=== PATIENT | male | born 1980 | race Caucasian/White ===

== ENCOUNTER 2019-09-10 15:55 | Emergency (ER) | payer OTHER, SELFPAY ==
--- NOTE | ~2019-09-10 | XR_ITS ---
EXAMINATION: XR chest 2V DATE: 09/10/2019 17:12 INDICATION: Decreased breath sounds TECHNIQUE: Frontal and lateral views of the chest are obtained COMPARISON: 07/13/2006 FINDINGS: The lungs are free of acute opacities. There is no pleural effusion or pneumothorax. The ca rdiomediastinal silhouette is normal. There is mild thoracic spondylosis. IMPRESSION: 1. No acute cardiopulmonary abnormality. Reviewed, dictated and finalized at location A.
[2019-09-10 16:05] VITALS: BP 141/85; PULSE 117; RESP 16; TEMP 37.3; O2SAT 98
[2019-09-10 16:47] LABS: Glucose Point of Care 125 (65-105)
--- NOTE | 2019-09-10 16:52 | ED.GENADULT ---
HPI - General Adult General Chief complaint: Unspecified Stated complaint: Swelling r/l ankle/leg Time Seen by Provider: 09/10/19 16:52 Source: RN notes reviewed Mode of arrival: ambulatory Limitations: no limitations History of Present Illness HPI narrative: 38 year old male who presents to [facility] with complaints of one week duration of bilateral ankle and feet edema. 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 Patient states that he had previous episode of lower leg swelling in April and was seen in the emergency room at [facility]. Patient has small scabbed areas to left lower extremity and scabbed inflamed area to right anterior ankle region 0.5cm diameter with no drainage noted, states this area does not seem to heal. Patient states history of tobacco abuse of 1 ppd for the past 20 years, states also prior history of alcohol and cocaine abuse which he states no longer use.Patient denies any chest pain or palpitation, no episodes of diaphoresis or acute dyspnea. MD complaint: swelling to lower extremities Onset (ago): week(s) (1) Location: lower extremity (bilateral pretibial and pedal edema) Radiation: non-radiation Severity: moderate Severity scale (1-10): 8 Quality: aching Pain Consistency: intermittent Relieving factors: none Exacerbating factors: other (ambulation) Associated symptoms: other (scabbed lesions to lower extremities, ) Treatments prior to arrival: other (elevation of legs) Related Data Allergies Allergy/AdvReac Type Severity Reaction Status Date / Time No Known Allergies Allergy Mild Verified 09/10/19 16:03 Review of Systems Review of Systems: Narrative: CONSTITUTIONAL: Denies fever, chills, or sweats. EYES: Denies visual changes, redness, or discharge. ENT: Denies rhinorrhea, congestion, sore throat, or otalgia. CARDIOVASCULAR: Denies chest pain, palpitations, positive for lower extremity edema for the past 1 week duration RESPIRATORY: Denies cough or dyspnea.SAO2 99% on room air GASTROINTESTINAL: Denies abdominal pain, nausea, vomiting, or diarrhea. GENITOURINARY: Denies dysuria or hematuria. SKIN: Denies rash or itching.red scabbed lesion to right anterior ankle region with no drainage, scattered scabbed areas left lower leg. MUSCULOSKELETAL: Denies back pain, joint pain, or myalgia. NEUROLOGIC: Denies headache, numbness, or weakness. PSYCHIATRIC: Positive history of anxiety and depression. All systems reviewed & are unremarkable except as noted in HPI and below PMFSH Past Medical History Medical History (Updated 09/11/19 @ 00:00 by Mag Addison) Anxiety Depression History of kidney stones Surgical History Surgical History (Updated 09/11/19 @ 19:59 by Osiris Garcia NP) History of arthroplasty of left ankle Family History Family History (Updated 09/11/19 @ 19:59 by Osiris Garcia NP) Other Diabetes mellitus Social History Social History Smoking packs per day: 1 Smoking cigarettes per day: 20.0 Smoking status: Current every day smoker Alcohol intake: current Gender identity (if verbalized by the patient): Male Comments At time of signature, agree with nursing past medical, surgical, social and family history. There is no relevant family history pertinent to the presenting complaint Exam Narrative: Exam Narrative: GENERAL: Well-appearing, well-nourished, and in no acute distress. HEAD: Normocephalic, atraumatic. EYES: PERRLA and EOMI. ENT: Nares clear, no rhinorrhea or epistaxis. Mucous membranes moist. NECK: Supple. CHEST: Clear decreased breath sounds to auscultation. No respiratory distress.SAO2 98% on room air HEART: Regular rate and rhythm. No murmur heard, peripheral pulses of fair quality but palpable ABDOMEN: Soft, nontender, nondistended, normal active bowel sounds. EXTREMITIES: Normal r
[2019-09-10 17:07] VITALS: PULSE 103; RESP 18; O2SAT 98
== END 2019-09-10 18:00 | disposition home or self-care (01) ==
PROVIDERS: Emergency Provider Registered Nurse
DX: L03.119 Cellulitis of unspecified part of limb (principal); L02.419 Cutaneous abscess of limb, unspecified; R60.0 Localized edema; F17.210 Nicotine dependence, cigarettes, uncomplicated
CPT/HCPCS: 71046; 82948; 99213; G0463

== ENCOUNTER 2020-02-27 09:55 | Outpatient (CLI) | payer OTHER, SELFPAY ==
--- NOTE | ~2020-02-27 | MR_ITS ---
EXAMINATION: MR forearm LT wo con DATE: 02/27/2020 11:05 INDICATION: 3 lumps at the left forearm with pain and drainage. TECHNIQUE: Magnetic resonance imaging (MRI) of the left forearm was performed without intravenous con trast. Sequences included axial, sagittal and coronal T1-weighted FSE and fluid sensitive FSE STIR . COMPARISON: None. FINDINGS: There is skin thickening and subcutaneous edema extending to 33 lag the dorsal aspect of the left for earm. The region of inflammatory stranding appears to track along the course of the subcutaneous vein . Approximately 8 cm distal to the level of the radiocapitellar joint line there is a nonspecific 1.8 x 0.8 x 1.2 cm nodular subcutaneous lesion which is T1 isointense and slightly hyperintense on fluid sensitive image to the underlying skeletal muscle. There appears to be a defect in the dermal layer at the superficial margin of the lesion which may represent the site of reported drainage. No other c learly defined nodules identified. The underlying musculature is unremarkable with normal signal. No evident low signal intensity soft tissue gas or foreign body. Bone alignment is normal. Normal marrow signal throughout with no fracture or pathologic marrow replacing process. No elbow joint effusion. IMPRESSION: 1. Skin thickening and subcutaneous edema suggestive of cellulitis extending along the dorsal aspect of the forearm which appears centered around the subcutaneous vein suggesting possible thrombophlebit is as etiology. 2. More focal 1.8 x 0.8 x 1.2 cm nodular lesion which appears to extend to the skin surface. Although neoplasm cannot be absolutely excluded the surrounding edema and skin thickening suggests an inflamm atory etiology differential would include granuloma/phlegmon, draining abscess or hematoma. Reviewed, dictated and finalized at location A. IMPRESSION: 1. Skin thickening and subcutaneous edema suggestive of cellulitis extending al sania the dorsal aspect of the forearm which appears centered around the subcutan eous vein suggesting possible thrombophlebitis as etiology. 2. More focal 1.8 x 0.8 x 1.2 cm nodular lesion which appears to extend to the skin surface. Although neoplasm cannot be absolutely excluded the surrounding e anika and skin thickening suggests an inflammatory etiology differential would i nclude granuloma/phlegmon, draining abscess or hematoma.
== END 2020-02-27 09:56 | disposition home or self-care (01) ==
PROVIDERS: PCP Physician Assistant; Visit Provider Physician Assistant
DX: R22.9 Localized swelling, mass and lump, unspecified (principal)
CPT/HCPCS: 73218

== ENCOUNTER 2020-03-01 10:47 | Inpatient (IN) | payer OTHER, SELFPAY ==
[2020-03-01] VITALS (8 sets, daily range): BP systolic 117–143; BP diastolic 52–77; PULSE 111–126; RESP 18–28; TEMP 36.4–37.7; O2SAT 96–100
--- NOTE | ~2020-03-01 | US_ITS ---
EXAMINATION: US venous doppler UE DATE: 03/02/2020 14:13 INDICATION: Left upper limb swelling. TECHNIQUE: Grayscale ultrasound images without and with compression and Doppler ultrasound images of the bilateral upper extremity veins were obtained. COMPARISON: None. FINDINGS: The visualized portions of the right internal jugular vein, subclavian vein, axillary vein, brachial veins, basilic vein, cephalic vein, radial vein, and ulnar vein are patent. The visualized portions of the left internal jugular vein, subclavian vein, axillary vein, brachial v eins, basilic vein, cephalic vein, radial vein, and ulnar vein are patent. IMPRESSION: 1. No deep venous thrombosis. Reviewed, dictated and finalized at location A.
--- NOTE | ~2020-03-01 | CT_ITS ---
EXAMINATION: CT brain wo con DATE: 03/01/2020 18:58 INDICATION: Confusion TECHNIQUE: Computed tomography (CT) of the head was performed without intravenous contrast. The mA wa s adjusted according to patient size. Iterative reconstruction technique was employed. Exam dose: 68 1.00 mGy-cm total exam DLP. COMPARISON: 07/13/2006 CT brain FINDINGS: No intracranial mass lesion or hemorrhage or cerebrovascular accident is detected. Normal v entricular size. Cavum septum pellucidum. Mild bilateral carotid siphon internal carotid artery calcifications. No subdural or epidural hematoma. There is patchy opacification of ethmoid air cells bilaterally. The paranasal sinuses are otherwise u nremarkable. Normal development and aeration of the mastoid air cells. No fracture or bone destruction of the cranial vault. IMPRESSION: No acute intracranial finding Cerebral atherosclerosis Patchy opacification of ethmoid air cells Reviewed, dictated and finalized at Location A. Reviewed, dictated and finalized at location A.
--- NOTE | ~2020-03-01 | XR_ITS ---
EXAMINATION: XR chest 1V portable 03/01/2020 11:39 INDICATION: Fever and dyspnea PROCEDURE: AP portable chest COMPARISON: 09/10/2019 FINDINGS: The lungs are clear. The cardiomediastinal silhouette is within normal limits. There are no pleural effusions. There is no pneumothorax suspected. IMPRESSION: 1: NO ACUTE CARDIOPULMONARY DISEASE. Reviewed, dictated and finalized at location A.
--- NOTE | ~2020-03-01 | US_ITS ---
EXAMINATION: US venous doppler [facility] DATE: 03/02/2020 14:10 INDICATION: Lower limb pain and swelling TECHNIQUE: Garces scale images without and with compression and Doppler images of the bilateral lower e xtremity veins were obtained. COMPARISON: None FINDINGS: The right common femoral vein, profunda femoral vein, femoral vein, popliteal vein, peroneal trunk, p osterior tibial veins, and greater saphenous vein are patent. Lymph nodes in the right groin measure up to 1.3 cm in short axis, likely reactive. The left common femoral vein, profunda femoral vein, femoral vein, popliteal vein, peroneal trunk, po sterior tibial veins, and greater saphenous vein are patent. IMPRESSION: 1. Patent bilateral lower extremity veins. No evidence of deep venous thrombosis. Reviewed, dictated and finalized at location A. IMPRESSION: 1. Patent bilateral lower extremity veins. No evidence of deep venous thrombosi s.
--- NOTE | ~2020-03-01 | US_ITS ---
EXAMINATION: US right upper quadrant DATE: 03/05/2020 12:47 INDICATION: Abnormal liver function tests. TECHNIQUE: Multiple grayscale and Doppler ultrasound images of the abdomen were obtained. COMPARISON: CT abdomen and pelvis 06/08/2017 FINDINGS: The visualized portions of the head and body of the pancreas are normal. There is diffuse h epatic steatosis. No liver surface nodularity. There is normal flow in main portal vein. The gallblad ramya is normal in size. No gallstones or gallbladder wall thickening. There was no sonographic Blake sign. The common duct is normal and measures 5 mm. IMPRESSION: 1. Diffuse hepatic steatosis. Reviewed, dictated and finalized at location A.
--- NOTE | 2020-03-01 11:06 | ECG_ITS ---
Measurements Intervals [place] Rate: 119 P: 46 SD: 139 QRS: 26 QRSD: 90 T: 50 QT: 312 QTc: 440 Interpretive Statements SINUS TACHYCARDIA INCOMPLETE RIGHT BUNDLE BRANCH BLOCK BASELINE ARTIFACT- I, II, III, AVR ABNORMAL ECG Electronically Signed On 03-01-2020 15:57:48 CDT by Pilo Hamilton D.O.
[2020-03-01] MEDS: SODIUM CHLORIDE 0.9% IV 1,000 ML 999 ML IV CONT (11:30)
[2020-03-01 11:43] LABS: Basophils Absolute Auto 0.1 K/mm3 (0.0-0.1); Basophils Percent Auto 0.2 % (0.2-1.2); Hematocrit 41.2 % (42.0-52.0); Hemoglobin 13.7 g/dL (14.0-18.0); Immature Granulocyte Absolute 0.17 K/mm3 (0.00-0.031); Immature Granulocyte Percent A 0.8 % (0-0.5); Lymphocytes Absolute Auto 1.07 K/mm3 (0.9-3.2); Lymphocytes Percent Auto 5.1 % (18.3-44.2); Mean Corpuscular HGB Conc 33.3 g/dl (32-36); Mean Corpuscular Hemoglobin 29.9 pg (26-34); Monocytes Percent Auto 4.7 % (2.6-8.5); Neutrophils Absolute Auto 18.6 K/mm3 (1.3-6.7); Neutrophils Percent Auto 89.2 % (45.5-73.1); Platelet Count Result 248 k/mm3 (150-375); Red Blood Count 4.58 M/mm3 (4.6-6.20); Red Cell Distribution Width 12.6 % (11.5-14.5); White Blood Count 20.9 K/mm3 (4.5-10.0)
[2020-03-01 11:54] LABS: Lactic Acid Reflex 1.2 mmol/L (0.7-2.1)
[2020-03-01 11:55] LABS: Appearance Urine Clear (Clear); Color Urine Amber (Yellow)
[2020-03-01 11:56] LABS: Blood Urine Negative (Negative); Glucose Urine UA Negative (Negative); Ketones Urine 1+ mg/dL (Negative); Protein Urine Trace mg/dL (Negative); pH Urine 7.5 (5.0-9.0)
[2020-03-01 11:57] LABS: Add Urine Microscopic? YES; Alanine Aminotransferase 62 U/L (4-50); Alkaline Phosphatase 80 U/L (38-126); Anion Gap 7 mmol/L (8-16); Aspartate Amino Transferase 42 U/L (17-59); Bilirubin Urine 2+ (Negative); Bilirubin,Total 1.4 mg/dL (0.2-1.3); Blood Urea Nitrogen 10 mg/dL (9-20); CRP 6.2 mg/dL (<1.0); Calcium 8.8 mg/dL (8.4-10.2); Carbon Dioxide 30 mmol/L (22-30); Chloride 99 mmol/L (98-107); Estimated CRCL calculation 123 ml/min; Estimated Glomerular Filt Rate > 60; Glucose 109 mg/dL (75-110); INR 1.1; Leukocyte Esterase Ur Trace LEU/UL (Negative); Lipase 35 U/L (23-300); Nitrate Urine Negative (Negative); Partial Thromboplastin Time 35.1 SECONDS (22.3-36.8); Potassium 3.7 mmol/L (3.4-5.0); Sodium 136 mmol/L (137-145)
[2020-03-01 11:58] LABS: Mucus Urine Moderate /lpf; RBC Urine 0-2 /hpf (0-2); WBC Urine 0-3 /hpf
[2020-03-01 12:06] LABS: Troponin I < 0.012 ng/mL (0.000-0.034)
--- NOTE | 2020-03-01 12:45 | ED.FEVER ---
HPI - Fever General Chief Complaint: Fever Stated Complaint: Fever Time Seen by Provider: 03/01/20 11:10 Source: patient Limitations: no limitations History of Present Illness HPI Narrative: 39-year-old with a history of IV drug abuse presented to the ER with complaints of high fever since yesterday. Patient states that he has not used IV drugs for past 1 month, had an outpatient MRI of the right upper extremity which shows diffuse cellulitis and a small 1.8 cm questionable soft tissue swelling. Patient denies any cough or shortness of breath. No history of nausea or vomiting. Patient claims that he has not used any drugs in the last few days. MD elicited complaint: fever Exacerbating factors: nothing Treatments prior to arrival fever: none Related Data Home Medications Medication Instructions Recorded Confirmed No Home Medications 01/30/20 01/30/20 Allergies Allergy/AdvReac Type Severity Reaction Status Date / Time No Known Allergies Allergy Mild Verified 03/01/20 11:03 Review of Systems Review of Systems: All systems reviewed & are unremarkable except as noted in HPI and below Constitutional: Constitutional: Reports no additional constitutional complaints Eyes: Eyes: Reports no additional eye complaints ENT: Reports system reviewed and no additional complaints, except as documented Respiratory: Respiratory: Reports no additional respiratory complaints Genitourinary: Genitourinary: Reports no additional male genitourinary complaints Integumentary/Breasts: Skin/Breast: Reports system reviewed and no additional complaints, except as docu PMFSH Past Medical History Medical History Allergies Anxiety Anxiety and depression Depression Elevated fasting glucose Excessive cerumen in both ear canals Foot callus History of kidney stones Irritability and anger Lipodermatosclerosis of lower extremity due to varicose veins Mass of skin of left forearm Obesity (BMI 30.0-34.9) Obstructive sleep apnea Prostate cancer screening Seasonal allergies Tobacco abuse Venous stasis syndrome Surgical History Surgical History History of arthroplasty of left ankle Family History Family History Mother No problems noted. Father Diabetes mellitus Grandparent , Paternal Grandfather Lung disease Grandparent , Paternal Grandmother No problems noted. Grandparent , Maternal Grandmother Diabetes mellitus Grandparent , Maternal Grandfather Heart disease Sibling No problems noted. Sibling No problems noted. Social History Social History Smoking packs per day: 1 Smoking cigarettes per day: 20.0 Smoking status: Current every day smoker Alcohol intake: current Gender identity (if verbalized by the patient): Male Exam Narrative: Exam Narrative: GENERAL: Well-appearing, well-nourished, and in no acute distress. HEAD: Normocephalic, atraumatic. EYES: PERRLA and EOMI. ENT: Nares clear, Mucous membranes moist. NECK: Supple. CHEST: Clear to auscultation. No respiratory distress. HEART: Tachycardic. No murmur heard. Normal peripheral pulses. ABDOMEN: Soft, nontender, nondistended, normal active bowel sounds. EXTREMITIES: Normal range of motion. Right upper extremity is mildly edematous compared to the left but I do not see any obvious open lesions SKIN: Warm, dry, no rash. Multiple old scabbed lesions in the lower extremities NEURO: No focal deficits. Alert and oriented x3. PSYCH: Normal mood and affect. Course Reevaluation(s) Reevaluation #1: Patient had to be woken up several times to inform his lab work, will admit him to the hospital for IV antibiotics. I discussed with Lena who agreed to admit the patient. Vital Signs Vital s
--- NOTE | 2020-03-01 14:55 | ADMGEN ---
This patient, Clem Mike, was admitted to [facility] Surg Room 327-01. Patient/family oriented to hospital policies and general routines including ID bracelet, bed and alarms, visiting hours, pain management, procedures, bathroom and other care routines, personal items, smoking policy, room service/diet, and visiting hours. Valuables list has been completed. Information on how to activate the Rapid Response Team has been discussed. Patient/Family are encouraged to report perceived risks to care and to ask questions if they do not understand what they are told or what they should do.
[2020-03-01] MEDS: SODIUM CHLORIDE 0.9% IV 1,000 ML 125 ML IV CONT (15:41)
--- NOTE | 2020-03-01 16:36 | PM.IMHP ---
H&P: HPI History of Present Illness Date/Time: 03/01/20 16:36 Chief complaint: SIRS, cellulitis right arm Narrative: Clem Mike is a 39 year old male Who is a known IV drug user. The patient has not been answering questions for me at this time. He has fevers and chills. The patient has a history of sleep apnea. He tells me that he does use a CPAP at home. He has a history of depression and anxiety. He has tried depression medication in the past but is turn to self medicating himself with street drugs. He would not tell me specifically would is using to shoot up with. But the patient has multiple pop byers from injecting himself. His areas between his toes and his lower extremities and his forearms. The patient came to the emergency with complaints of high fever since yesterday am not quite sure how high the fever has been. The patient states he has not use IV drug use for 1 month. Patient had an outpatient MRI of the right upper extremity which shows diffuse cellulitis and a small 1.8 cm questionable soft tissue swelling. He denies any cough. The patient was checked for covid 19 and is on isolation now. Patient was started on cefepime and vancomycin. His white count was noted to be 20.9. The patient is having difficulty staying awake to answer my questions. He is a poor historian. The nurse has called his mother which is Jocelyn .She stated that he uses heroin and was on Suboxone for two years. no medications listed at his usual pharmacy. Patient was started on cefepime and vancomycin. C reactive protein 6.2. Patient was noted to have Lyme disease in the past but was treated early on without any symptoms. Patient had been placed on Lasix due to the lower extremity edema. Chest x-ray was read as no acute cardiopulmonary disease. Patient was admitted inpatient for medical floor isolation on 03/01/2020 Review of Systems Review of Systems: All systems reviewed & are unremarkable except as noted in HPI and below Constitutional: Constitutional: Reports as per HPI and Reports no additional constitutional complaints Eyes: Eyes: Reports as per HPI and Reports no additional eye complaints ENT: Reports system reviewed and no additional complaints, except as documented and Reports Normal hearing present Cardiovascular: Cardiovascular: Reports no additional cardiovascular complaints Respiratory: Respiratory: Reports no additional respiratory complaints and Reports no additional respiratory complaints Gastrointestinal: Gastrointestinal: Reports as per HPI and Reports no additional gastrointestinal complaints Musculoskeletal: Musculoskeletal: Reports no additional musculoskeletal complaints Integumentary/Breasts: Skin/Breast: Reports system reviewed and no additional complaints, except as docu and Reports as per HPI Neurologic: Reports system reviewed and no additional complaints, except as documented, Reports as per HPI and Reports Normal hearing present Psychiatric: Psychiatric: Reports no additional psychiatric complaints and Reports as per HPI Endocrine: Endocrine: Reports no additional endocrine complaints Hematologic/Lymphatic: Hematologic/Lymphatic: Reports no additional hematologic/lymphatic complaints Allergic/Immunologic: Allergic/Immunologic: Reports no additional allergic/immunologic complaints [facility] Past Medical History Medical History (Updated 03/01/20 @ 17:40 by Lena Stein NP) Allergies Anxiety Anxiety and depression Depression Elevated fasting glucose Excessive cerumen in both ear canals Foot callus History of kidney stones Irritability and anger Lipodermatosclerosis of lower extremity due to varicose veins Lyme disease Mass of skin of left forearm Obesity (BMI 30.0-34.9) Obstructive sleep apnea Prostate cancer screening Seasonal allergies Tobacco abuse Venous stasis syndrome Surgical History Surgical History History of arthroplas
[2020-03-01 17:07] LABS: Alveolar/Arterial O2 Gradient 60.1 mmHg; Base Excess ABG -1.2 mEq/l (+/-2.0); Fractional Inspired Oxygen 21 %; HCO3 ABG 20.7 mEq/l (22.0-26.0); Oxygen Content ABG 17.6 %vol (16.0-22.0); Oxygen Saturation ABG 92.1 % (95.0-100.0); PCO2 ABG 27.7 mmHg (35.0-45.0); PO2 ABG 56.5 mmHg (80.0-100.0); PO2 FiO2 Ratio Arterial Blood 2.69 %; Total Hemoglobin 13.8 g/dL (12.0-18.0); pH ABG 7.492 (7.350-7.450)
[2020-03-01 17:08] LABS: Device ROOM AIR; Modified Allen's Test Pass; Site Drawn RIGHT RADIAL
[2020-03-01 17:38] LABS: Lactic Acid Reflex 0.7 mmol/L (0.7-2.1)
[2020-03-01] MEDS: NICOTINE (*PBKC) 21 MG PATCH 1 PATCH TRANSDERM (19:34)
[2020-03-01] MEDS: ACETAMINOPHEN 325 MG TABLET 650 MG PO (22:10)
[2020-03-01 22:44] LABS: Influenza Control Positive
[2020-03-02] VITALS (11 sets, daily range): BP systolic 104–142; BP diastolic 61–80; PULSE 89–124; RESP 16–20; TEMP 36.4–38.7; O2SAT 97–100
--- NOTE | 2020-03-02 01:29 | P.PNCROSS_ITS ---
Event Note Event Note Event Note: RAPID RESPONSE NOTE Called to bedside via Rapid Response. This is a 39 year old male known IV drug abuser who was admitted to the hospital tonight secondary to sepsis and left arm cellulitis. Nursing staff called a rapid response when the patient was not waking up to verbal stimuli. ON my arrival to bedside the patient immediately woke up to physical stimuli. He was found to have a fever. He did not have IV access at that time. Vitals were obtained and were stable. Nursing supervisor dehydrogenation placed a peripheral IV. The patient answered my questions appropriately. ABG was obtained which was a mixed gas but did show a normal CO2. Lactic acid was drawn. I will continue to monitor the patient closely overnight. Monitor for any signs and symptoms of drug withdrawal. Continue current medical therapy.
[2020-03-02 01:30] LABS: Alveolar/Arterial O2 Gradient 67.5 mmHg; Carboxyhemoglobin 0.5 % THb (0-2.0); Fractional Inspired Oxygen 21 %; HCO3 ABG 22.6 mEq/l (22.0-26.0); Methemoglobin ABG 0.2 %THb (0-1.5); Oxygen Content ABG 15.8 %vol (16.0-22.0); Oxyhemoglobin 81.5 % THb (90.0-100.0); PCO2 ABG 34.4 mmHg (35.0-45.0); PO2 FiO2 Ratio Arterial Blood 1.95 %; Reduced Hemoglobin 17.8 %THb (0-5.0); Total Hemoglobin 13.8 g/dL (12.0-18.0); pH ABG 7.436 (7.350-7.450)
[2020-03-02 01:33] LABS: Device ROOM AIR; Modified Allen's Test Pass; Oxygen Saturation ABG 78.6 % (95.0-100.0); Site Drawn LEFT RADIAL
[2020-03-02] MEDS: IBUPROFEN IV 400 MG in SODIUM CHLORIDE 0.9% IV 100 ML 200 MG IVPB (01:52)
[2020-03-02 02:30] LABS: Basophils Absolute Auto 0.1 K/mm3 (0.0-0.1); Basophils Percent Auto 0.3 % (0.2-1.2); Eosinophils Percent Auto 0.1 % (0-4.4); Hematocrit 41.3 % (42.0-52.0); Immature Granulocyte Absolute 0.11 K/mm3 (0.00-0.031); Immature Granulocyte Percent A 0.6 % (0-0.5); Lymphocytes Absolute Auto 1.03 K/mm3 (0.9-3.2); Lymphocytes Percent Auto 5.7 % (18.3-44.2); Mean Corpuscular HGB Conc 33.9 g/dl (32-36); Mean Corpuscular Hemoglobin 30.1 pg (26-34); Mean Corpuscular Volume 88.8 fl (80-100); Mean Platelet Volume 11.2 fl (7.4-10.4); Monocytes Absolute Auto 1.1 K/mm3 (0.1-0.6); Monocytes Percent Auto 6.2 % (2.6-8.5); Neutrophils Absolute Auto 15.8 K/mm3 (1.3-6.7); Neutrophils Percent Auto 87.1 % (45.5-73.1); Platelet Count Result 183 k/mm3 (150-375); Red Blood Count 4.65 M/mm3 (4.6-6.20); Red Cell Distribution Width 12.7 % (11.5-14.5); White Blood Count 18.2 K/mm3 (4.5-10.0)
[2020-03-02 02:35] LABS: Anion Gap 8 mmol/L (8-16); Blood Urea Nitrogen 9 mg/dL (9-20); Calcium 8.5 mg/dL (8.4-10.2); Carbon Dioxide 23 mmol/L (22-30); Chloride 102 mmol/L (98-107); Estimated CRCL calculation 123 ml/min; Estimated Glomerular Filt Rate > 60; Glucose 113 mg/dL (75-110); Potassium 3.2 mmol/L (3.4-5.0); Sodium 133 mmol/L (137-145)
[2020-03-02 04:04] LABS: Glucose Point of Care 113 (65-105)
[2020-03-02 05:32] LABS: Barbiturate Screen Urine Negative (Negative); Benzodiazepines Screen Urine Negative (Negative)
[2020-03-02 06:06] LABS: Cannabinoid Screen Urine Negative (Negative); Cocaine Screen Urine Negative (Negative); Methadone Screen Urine Negative (Negative); Opiate Screen Urine Negative (Negative); Phencyclidine Screen Urine Negative (Negative)
[2020-03-02 08:00] LABS: Magnesium 1.7 mg/dL (1.6-2.3)
[2020-03-02] MEDS: NICOTINE (*PBKC) 21 MG PATCH 1 PATCH TRANSDERM (08:08)
[2020-03-02] MEDS: POTASSIUM CHLORIDE 20 MEQ TABLET 40 MEQ PO (08:08)
--- NOTE | 2020-03-02 12:26 | PM.CNGS ---
Assessment and Plan Assessment and plan (1) Cellulitis of left arm: Code(s): L03.114 - Cellulitis of left upper limb Status: Acute Assessment and Plan: no drainable areas on exam today, will cont to follow, cont abx (2) SIRS (systemic inflammatory response syndrome): Code(s): R65.10 - Systemic inflammatory response syndrome (SIRS) of non-infectious origin without acute organ dysfunction Status: Acute Assessment and Plan: ? etiology as no obvious abscess on exam, cont abx (3) Drug abuse, IV: Code(s): F19.10 - Other psychoactive substance abuse, uncomplicated Status: Acute Assessment and Plan: pt not ammendable to cessation at this point (4) Suspected COVID-19 virus infection: Code(s): Z20.828 - Contact with and (suspected) exposure to other viral communicable diseases Status: Acute Assessment and Plan: pending, cont precautions (5) Tobacco abuse: Code(s): Z72.0 - Tobacco use Status: Acute Assessment and Plan: pt no ammendable to cessation at this point History of Present Illness Consult details Consult date: 03/02/20 Reason for consult: wound care Requesting physician: Yessenia Quiroga PA-C Narrative: Pt is a 39 y/o M c h/o polysubstance abuse presenting c fevers, malaise over last week. Pt reports pain in LUE assoc c some redness and swelling. Pt had outpt MRI showing some soft tissue changes in L forearm area. Pt reports swelling and pain improved since admission and IV abx. Review of Systems Constitutional: Constitutional: Denies anorexia, Reports body ache(s), Reports chills, Reports fatigue, Reports fever(s), Denies headache(s), Denies increased appetite, Reports lethargy, Reports malaise, Reports poor appetite and Reports weakness Eyes: Eyes: Reports no additional eye complaints and Denies change in vision ENT: Reports system reviewed and no additional complaints, except as documented Cardiovascular: Cardiovascular: Reports no additional cardiovascular complaints Respiratory: Respiratory: Reports no additional respiratory complaints Gastrointestinal: Gastrointestinal: Reports no additional gastrointestinal complaints Genitourinary: Genitourinary: Reports no additional male genitourinary complaints Musculoskeletal: Musculoskeletal: Reports no additional musculoskeletal complaints Integumentary/Breasts: Skin/Breast: Reports as per HPI Neurologic: Reports system reviewed and no additional complaints, except as documented Psychiatric: Psychiatric: Reports no additional psychiatric complaints Endocrine: Endocrine: Reports no additional endocrine complaints Hematologic/Lymphatic: Hematologic/Lymphatic: Reports no additional hematologic/lymphatic complaints Allergic/Immunologic: Allergic/Immunologic: Reports no additional allergic/immunologic complaints PMF Past Medical History Medical History Allergies Anxiety Anxiety and depression Depression Elevated fasting glucose Excessive cerumen in both ear canals Foot callus History of kidney stones Irritability and anger Lipodermatosclerosis of lower extremity due to varicose veins Lyme disease Mass of skin of left forearm Obesity (BMI 30.0-34.9) Obstructive sleep apnea Prostate cancer screening Seasonal allergies Tobacco abuse Venous stasis syndrome Surgical History Surgical History History of arthroplasty of left ankle Family History Family History Mother No problems noted. Father Diabetes mellitus Grandparent , Paternal Grandfather Lung disease Grandparent , Paternal Grandmother No problems noted. Grandparent , Maternal Grandmother Diabetes mellitus Grandparent , Maternal Grandfather Heart disease Sibling No problems noted.
--- NOTE | 2020-03-02 12:57 | PM.IMPN ---
Progress Note: A&P Assessment and Plan (1) Sepsis: Code(s): A41.9 - Sepsis, unspecified organism Status: Acute Assessment and Plan: Supported by fever, tachycardia, and leukocytosis. He is an IV drug user and last used crystal methamphetamine 2 days ago. The suspected source is cellulitis. His right lower extremity appears erythematous and warm and he has ulcerations and soft tissue swelling of the left upper extremity. Continue IV fluid hydration. Continue IV antibiotics. Await blood cultures. He is at risk for endocarditis as well given IV drug use. He is hemodynamically stable. (2) Cellulitis of left arm: Code(s): L03.114 - Cellulitis of left upper limb Status: Acute Assessment and Plan: He reports that an ulceration of the proximal dorsal forearm of the LUE developed 8 weeks ago and notes two additional ulcerations developed distal to that lesion subsequently. He noted thick dark, red/brown discharge from the lesions intermittently which has stopped. MRI was performed 02/27/20 and read by the radiologist as as: Skin thickening and subcutaneous edema suggestive of cellulitis extending along the dorsal aspect of the forearm which appears centered around the subcutaneous vein suggesting possible thrombophlebitis as etiology. More focal 1.8 x 0.8 x 1.2 cm nodular lesion appears to extend to the skin surface. Although neoplasm cannot be absolutely excluded the surrounding edema and skin thickening suggests an inflammatory etiology differential would include granuloma/phlegmon, draining abscess or hematoma. Due to concern for possible septic thrombophlebitis, I ordered venous doppler US which demonstrates patent vein without thrombus. Palpable cord appreciated at the vein may be due to inflammation from recurrent IV drug use in the vein. General surgery was consulted and input is greatly appreciated. He has marked leukocytosis with neutrophil predominance. CRP is 6.2. He is on empiric IV vancomycin and IV zosyn which will be continued awaiting blood cultures. Will consider infectious disease consultation pending cultures. (3) Cellulitis of right lower extremity: Code(s): L03.115 - Cellulitis of right lower limb Status: Acute Assessment and Plan: He has erythema and warmth to the RLE with right inguinal lymphadenopathy. He does have chronic venous insufficiency with healed venous ulcer and evidence of chronic stasis dermatitis but I suspect that he has superimposed cellulitis. There is no abscess appreciated at this time. Continue empiric IV vancomycin and zosyn for now. Continue to monitor closely. (4) Drug abuse, IV: Code(s): F19.10 - Other psychoactive substance abuse, uncomplicated Status: Acute Assessment and Plan: He reports that he last used methamphetamine 2 days ago. He used heroin in the past but notes he has not used this in several years. Urine drug screen was negative. Await blood cultures. ALAYNA will be needed if blood cultures are positive. Continue to encourage cessation of illicit substance use. Monitor for any evidence of withdrawal. (5) Venous stasis syndrome: Code(s): I87.8 - Other specified disorders of veins Status: Acute Assessment and Plan: Recommend compression and elevation. Venous doppler US of the lower extremities was negative for DVT bilaterally. Lasix is on hold due to sepsis. Resume when felt clinically appropriate. (6) COVID-19 ruled out: Code(s): Z03.818 - Encounter for observation for suspected exposure to other biological agents ruled out Status: Acute Assessment and Plan: SARS-CoV-2 testing was negative. Discontinue isolation precautions. (7) Tobacco abuse: Code(s): Z72.0 - Tobacco use Status: Acute Assessment and Plan: Continue nicoderm patch. I encouraged smoking cessation. He is at risk for adverse cardiovascular/cardiopulmonary outcomes and he verbalized
[2020-03-02] MEDS: SODIUM CHLORIDE 0.9% IV 1,000 ML 125 ML IV CONT (13:06)
[2020-03-02 14:08] LABS: SARS-CoV-2 RNA PCR Negative
[2020-03-02] MEDS: SODIUM CHLORIDE 0.9% IV 1,000 ML 100 ML IV CONT (18:23)
[2020-03-02] MEDS: ACETAMINOPHEN 325 MG TABLET 650 MG PO (18:31)
[2020-03-02] MEDS: ENOXAPARIN 40 MG/0.4 ML SYRINGE SUB-Q (20:09)
[2020-03-03] MEDS: SODIUM CHLORIDE 0.9% IV 1,000 ML 100 ML IV CONT ×4 (01:22→16:40)
[2020-03-03 02:33] LABS: Basophils Percent Auto 0.3 % (0.2-1.2); Eosinophils Absolute Auto 0.1 K/mm3 (0-0.3); Eosinophils Percent Auto 1.9 % (0-4.4); Hematocrit 37.9 % (42.0-52.0); Hemoglobin 13.1 g/dL (14.0-18.0); Immature Granulocyte Absolute 0.02 K/mm3 (0.00-0.031); Immature Granulocyte Percent A 0.3 % (0-0.5); Lymphocytes Absolute Auto 0.86 K/mm3 (0.9-3.2); Lymphocytes Percent Auto 12.6 % (18.3-44.2); Mean Corpuscular HGB Conc 34.6 g/dl (32-36); Mean Corpuscular Hemoglobin 30.3 pg (26-34); Mean Corpuscular Volume 87.7 fl (80-100); Mean Platelet Volume 11.3 fl (7.4-10.4); Monocytes Absolute Auto 0.7 K/mm3 (0.1-0.6); Monocytes Percent Auto 10.4 % (2.6-8.5); Neutrophils Absolute Auto 5.1 K/mm3 (1.3-6.7); Neutrophils Percent Auto 74.5 % (45.5-73.1); Platelet Count Result 195 k/mm3 (150-375); Red Blood Count 4.32 M/mm3 (4.6-6.20); Red Cell Distribution Width 12.4 % (11.5-14.5); White Blood Count 6.9 K/mm3 (4.5-10.0)
[2020-03-03 02:57] LABS: Anion Gap 5 mmol/L (8-16); Blood Urea Nitrogen 8 mg/dL (9-20); CRP 14.3 mg/dL (<1.0); Calcium 8.3 mg/dL (8.4-10.2); Carbon Dioxide 28 mmol/L (22-30); Chloride 104 mmol/L (98-107); Estimated CRCL calculation 139 ml/min; Estimated Glomerular Filt Rate > 60; Glucose 166 mg/dL (75-110); Magnesium 2.1 mg/dL (1.6-2.3); Potassium 3.6 mmol/L (3.4-5.0); Sodium 137 mmol/L (137-145)
[2020-03-03 03:04] LABS: HIV 1/2 Ab P24 Ag Result Negative (Negative)
[2020-03-03 03:07] LABS: Vancomycin Trough 5.5 ug/mL (10.0-20.0)
[2020-03-03 03:33] LABS: Hepatitis B Surface Antigen Negative (Negative)
[2020-03-03 03:39] LABS: HAV RESULT Negative (Negative); Hepatitis B Core IgM Result Negative (Negative)
[2020-03-03 03:51] LABS: Hepatitis C Virus Antibody Negative (Negative)
[2020-03-03 06:00] VITALS: BP 127/81; PULSE 100; RESP 18; TEMP 36.4; O2SAT 100
[2020-03-03 08:00] VITALS: PULSE 100; RESP 18; O2SAT 100
[2020-03-03] MEDS: NICOTINE (*PBKC) 21 MG PATCH 1 PATCH TRANSDERM (08:56)
--- NOTE | 2020-03-03 11:55 | PM.PNGS ---
Progress Note: A&P Assessment and Plan (1) Cellulitis of left arm: Code(s): L03.114 - Cellulitis of left upper limb Status: Acute Assessment and Plan: improved, no drainable collections, cont abx (2) Cellulitis of right lower extremity: Code(s): L03.115 - Cellulitis of right lower limb Status: Acute Assessment and Plan: cellulitis, no drainable collections, cont abx (3) Sepsis: Code(s): A41.9 - Sepsis, unspecified organism Status: Acute Assessment and Plan: resolved, cont abx (4) Drug abuse, IV: Code(s): F19.10 - Other psychoactive substance abuse, uncomplicated Status: Acute Assessment and Plan: pt not interest in cessation conseuling Subjective Subjective Date/Time Seen: 03/03/20 11:55 feels better, decreased pain in LUE Review of Systems Constitutional: Constitutional: Denies body ache(s), Denies chills, Reports fatigue, Denies fever(s) and Reports weakness Cardiovascular: Cardiovascular: Reports no additional cardiovascular complaints Respiratory: Respiratory: Reports no additional respiratory complaints Gastrointestinal: Gastrointestinal: Reports no additional gastrointestinal complaints Musculoskeletal: Musculoskeletal: Denies no additional musculoskeletal complaints Integumentary/Breasts: Skin/Breast: Reports skin swelling, Reports sores and Reports wounds Exam Const: General: comfortable and no acute distress Resp: Auscultation: clear to auscultation bilaterally Cardio: Rate: regular rate Rhythm: regular rhythm GI: Inspection: normal to inspection GI Palp: Yes Soft to palpation and No Tenderness to palpation present (GI) Skin: General skin exam: normal color Other: LUE - induration is improved, cellulitis resolved, no fluctuance noted, decreased TTP RLE - cellulitis noted, multiple needle tracks Objective Data Vital Signs Vital Signs: Vital Signs - 24 hr 03/02/20 12:00 03/02/20 18:30 03/02/20 22:00 Temperature 36.7 C 36.8 C 37.1 C Pulse Rate 107 H 110 H Respiratory Rate 20 18 Blood Pressure 104/64 118/61 Pulse Oximetry 100 97 03/02/20 23:06 03/03/20 06:00 03/03/20 08:00 Temperature 36.4 C L Pulse Rate 108 H 100 100 Respiratory Rate 18 18 Blood Pressure 127/81 Pulse Oximetry 98 100 100 Intake/Output Intake/Output: Intake & Output 02/29/20 03/01/20 03/02/20 03/03/20 23:59 23:59 23:59 23:59 Intake Total 2200 4104 1590 Output Total 0 1700 400 Balance 2200 2404 1190 Meds/Results Medications: Active Medications Generic Name Dose Route Start Last Admin Trade Name Freq PRN Reason Stop Dose Admin Acetaminophen 650 mg 03/01/20 21:25 03/02/20 18:31 Acetaminophen 325 Mg Tablet PO 650 mg Q4H PRN Administration Mild Pain (1-3) or Fever Enoxaparin Sodium 40 mg 03/02/20 21:00 03/02/20 20:09 Enoxaparin 40 Mg/0.4 Ml Syringe SUB-Q 40 mg HS CHELO Administration Sodium Chloride 1,000 mls @ 100 mls/hr 03/01/20 12:40 03/03/20 01:22 Normal Saline Iv IV CONT 100 mls/hr .Q10H CHELO Administration Piperacillin/Tazobactam/Dextrose 3.375 gm in 50 mls @ 100 mls/hr 03/01/20 18:00 03/03/20 08:53 Zosyn 3.375 Gm/D5w 50ml Pm IVPB 100 mls/hr Q6HR CHELO Administration Vancomycin HCl 1,250 mg in 250 mls @ 200 mls/hr 03/03/20 11:00 Vancomycin 1,250 Mg/D5w 250 Ml IVPB Q8H CHELO Naloxone HCl 0.1 mg 03/01/20 16:43 Naloxone Hcl 0.4 Mg/Ml Vial IV PUSH Q5MIN PRN unresponsive Nicotine 1 patch 03/01/20 17:35 03/03/20 08:56 Nicotine (*Pbkc) 21 Mg Patch TRANSDERM 1 patch QAM CHELO Administration Ondansetron HCl 4 mg 03/01/20 12:40 Ondansetron Inj 4 Mg/2 Ml Vial IV PUSH Q4H PRN Nausea Radiology Results: ITS Impressions Chest X-Ray 03/01/20 11:43 IMPRESSION: 1: NO ACUTE CARDIOPULMONARY DISEASE. Head CT 03/01/20 21:18 IMPRESSION: No acute intracranial finding Cerebral atherosclerosis Patc
--- NOTE | 2020-03-03 13:08 | PM.IMPN ---
Progress Note: A&P Assessment and Plan (1) Sepsis: Code(s): A41.9 - Sepsis, unspecified organism Status: Acute Assessment and Plan: Supported by fever, tachycardia, and leukocytosis. He is an IV drug user and last used crystal methamphetamine 3 days ago. The suspected source is cellulitis. His right lower extremity appears erythematous and warm and he has ulcerations and soft tissue swelling of the left upper extremity. Blood cultures with NGTD. He is hemodynamically stable. Sepsis is resolving. He has been afebrile >24 hours and leukocytosis resolved. Continue IV fluid hydration. Continue IV antibiotics. Monitor final blood cultures (2) Cellulitis of left arm: Code(s): L03.114 - Cellulitis of left upper limb Status: Acute Assessment and Plan: He reports that an ulceration of the proximal dorsal forearm of the LUE developed 8 weeks ago and notes two additional ulcerations developed distal to that lesion subsequently. He noted thick dark, red/brown discharge from the lesions intermittently which has since stopped. MRI was performed 02/27/20 and read by the radiologist as: Skin thickening and subcutaneous edema suggestive of cellulitis extending along the dorsal aspect of the forearm which appears centered around the subcutaneous vein suggesting possible thrombophlebitis as etiology. More focal 1.8 x 0.8 x 1.2 cm nodular lesion appears to extend to the skin surface. Although neoplasm cannot be absolutely excluded the surrounding edema and skin thickening suggests an inflammatory etiology differential would include granuloma/phlegmon, draining abscess or hematoma. Due to concern for possible septic thrombophlebitis, venous doppler US was performed which demonstrated patent vein without thrombus. Palpable cord appreciated at the vein may be due to inflammation from recurrent IV drug use in the vein. CRP increased to 14.3. Leukocytosis resolved. General surgery was consulted and input is greatly appreciated. No drainage for fluid collection. Continue IV vanc and zosyn Closely monitor area (3) Cellulitis of right lower extremity: Code(s): L03.115 - Cellulitis of right lower limb Status: Acute Assessment and Plan: He has erythema and warmth to the RLE. He does have chronic venous insufficiency with healed venous ulcer and evidence of chronic stasis dermatitis with superimposed cellulitis. There is no abscess appreciated at this time. Erythema is confined to marked border. Continue empiric IV vancomycin and zosyn at this time Monitor area closely (4) Drug abuse, IV: Code(s): F19.10 - Other psychoactive substance abuse, uncomplicated Status: Acute Assessment and Plan: He reports that he last used methamphetamine 3 days ago. He used heroin in the past but notes he has not used this in several years. Urine drug screen was negative. He is at risk for infectious endocarditis due to IV drug use. Preliminary BCx with NGTD but ALAYNA will be needed if blood cultures were to become positive. No evidence of withdrawal. Drug cessation was encouraged. Patient agrees and understands. We discussed formal rehab program although he is not interested at this time due to his work schedule. He has attended NA meetings in the past and plans to return. (5) Venous stasis syndrome: Code(s): I87.8 - Other specified disorders of veins Status: Acute Assessment and Plan: Venous doppler US of the lower extremities was negative for DVT bilaterally. Continue compression and elevation. Lasix is on hold due to sepsis. Resume when felt clinically appropriate. (6) Tobacco abuse: Code(s): Z72.0 - Tobacco use Status: Acute Assessment and Plan: Continue nicoderm patch. I encouraged smoking cessation. He is at risk for adverse cardiovascular/cardiopulmonary outcomes and he verbalized understanding. (7) Obstructive sleep apnea:
[2020-03-03 14:00] VITALS: BP 116/79; PULSE 108; RESP 18; TEMP 36.8; O2SAT 100
[2020-03-03] MEDS: ENOXAPARIN 40 MG/0.4 ML SYRINGE SUB-Q (21:21)
[2020-03-03 22:00] VITALS: BP 122/86; PULSE 100; RESP 20; TEMP 36.5; O2SAT 98
[2020-03-04 06:00] VITALS: BP 128/82; PULSE 107; RESP 20; TEMP 36.8; O2SAT 98
[2020-03-04 06:29] LABS: Basophils Percent Auto 0.7 % (0.2-1.2); Eosinophils Absolute Auto 0.1 K/mm3 (0-0.3); Eosinophils Percent Auto 2.2 % (0-4.4); Hematocrit 40.5 % (42.0-52.0); Hemoglobin 13.8 g/dL (14.0-18.0); Immature Granulocyte Absolute 0.02 K/mm3 (0.00-0.031); Immature Granulocyte Percent A 0.3 % (0-0.5); Lymphocytes Percent Auto 16.8 % (18.3-44.2); Mean Corpuscular HGB Conc 34.1 g/dl (32-36); Mean Corpuscular Hemoglobin 29.3 pg (26-34); Mean Platelet Volume 11.3 fl (7.4-10.4); Monocytes Absolute Auto 0.7 K/mm3 (0.1-0.6); Monocytes Percent Auto 11.4 % (2.6-8.5); Neutrophils Absolute Auto 4.1 K/mm3 (1.3-6.7); Neutrophils Percent Auto 68.6 % (45.5-73.1); Platelet Count Result 241 k/mm3 (150-375); Red Blood Count 4.71 M/mm3 (4.6-6.20); Red Cell Distribution Width 12.2 % (11.5-14.5)
[2020-03-04 06:49] LABS: Alanine Aminotransferase 283 U/L (4-50); Albumin Level 3.3 g/dL (3.5-5.1); Alkaline Phosphatase 95 U/L (38-126); Anion Gap 8 mmol/L (8-16); Aspartate Amino Transferase 239 U/L (17-59); Bilirubin,Total 0.5 mg/dL (0.2-1.3); Blood Urea Nitrogen 7 mg/dL (9-20); CRP 3.9 mg/dL (<1.0); Calcium 8.8 mg/dL (8.4-10.2); Carbon Dioxide 26 mmol/L (22-30); Chloride 106 mmol/L (98-107); Estimated CRCL calculation 123 ml/min; Estimated Glomerular Filt Rate > 60; Glucose 115 mg/dL (75-110); Potassium 3.6 mmol/L (3.4-5.0); Sodium 140 mmol/L (137-145)
[2020-03-04] MEDS: NICOTINE (*PBKC) 21 MG PATCH 1 PATCH TRANSDERM (08:54)
[2020-03-04 11:15] LABS: Vancomycin Trough 11.6 ug/mL (10.0-20.0)
--- NOTE | 2020-03-04 13:05 | PM.IMPN ---
Progress Note: A&P Assessment and Plan (1) Sepsis: Code(s): A41.9 - Sepsis, unspecified organism Status: Acute Assessment and Plan: Supported by fever, tachycardia, and leukocytosis. He is an IV drug user and last used crystal methamphetamine 3 days ago. The suspected source is cellulitis. His right lower extremity appears erythematous and warm and he has ulcerations and soft tissue swelling of the left upper extremity. Blood cultures with NGTD. He is hemodynamically stable. Sepsis is resolving. He has been afebrile >48 hours and leukocytosis resolved. Continue IV antibiotics. Monitor final blood cultures (2) Cellulitis of left arm: Code(s): L03.114 - Cellulitis of left upper limb Status: Acute Assessment and Plan: He reports that an ulceration of the proximal dorsal forearm of the LUE developed 8 weeks ago and notes two additional ulcerations developed distal to that lesion subsequently. He noted thick dark, red/brown discharge from the lesions intermittently which has since stopped. MRI was performed 02/27/20 and read by the radiologist as: Skin thickening and subcutaneous edema suggestive of cellulitis extending along the dorsal aspect of the forearm which appears centered around the subcutaneous vein suggesting possible thrombophlebitis as etiology. More focal 1.8 x 0.8 x 1.2 cm nodular lesion appears to extend to the skin surface. Although neoplasm cannot be absolutely excluded the surrounding edema and skin thickening suggests an inflammatory etiology differential would include granuloma/phlegmon, draining abscess or hematoma. Due to concern for possible septic thrombophlebitis, venous doppler US was performed which demonstrated patent vein without thrombus. Palpable cord appreciated at the vein may be due to inflammation from recurrent IV drug use in the vein. CRP improved today at 3.9. Leukocytosis resolved. General surgery was consulted and input is greatly appreciated. No surgical intervention is required at this time. He may follow up with Dr. Agarwal as an outpatient if this lesion were to increase in size, develop drainage or pus. IV drug use cessation is imperative. Continue IV vanc and zosyn Closely monitor area (3) Cellulitis of right lower extremity: Code(s): L03.115 - Cellulitis of right lower limb Status: Acute Assessment and Plan: He has erythema and warmth to the RLE. He does have chronic venous insufficiency with healed venous ulcer and evidence of chronic stasis dermatitis with superimposed cellulitis. There is no abscess appreciated at this time. Erythema is confined to marked border and appears mildly improved today. Continue empiric IV vancomycin and zosyn at this time. Hopeful discharge tomorrow if continued improvement with transition to PO antibiotics. Monitor area closely (4) Drug abuse, IV: Code(s): F19.10 - Other psychoactive substance abuse, uncomplicated Status: Acute Assessment and Plan: He reports that he last used methamphetamine 4 days ago. He used heroin in the past but notes he has not used this in several years. Urine drug screen was negative. He is at risk for infectious endocarditis due to IV drug use. Preliminary BCx with NGTD but ALAYNA will be needed if blood cultures were to become positive. No evidence of withdrawal. Drug cessation was encouraged. Patient agrees and understands. We discussed formal rehab program although he is not interested at this time due to his work schedule. He has attended NA meetings in the past and plans to return. (5) Venous stasis syndrome: Code(s): I87.8 - Other specified disorders of veins Status: Acute Assessment and Plan: Venous doppler US of the lower extremities was negative for DVT bilaterally. Continue compression and elevation. Lasix is on hold due to sepsis. Resume when felt clinically appropriate. (6) Tobacco abuse: Code(s): Z72
[2020-03-04 14:00] VITALS: BP 130/81; PULSE 109; RESP 20; TEMP 37.1; O2SAT 98
[2020-03-04] MEDS: ACETAMINOPHEN 325 MG TABLET 650 MG PO (17:52)
[2020-03-04] MEDS: ENOXAPARIN 40 MG/0.4 ML SYRINGE SUB-Q (20:07)
[2020-03-04 22:00] VITALS: BP 146/76; PULSE 105; RESP 18; TEMP 37.2; O2SAT 97
[2020-03-05 06:00] VITALS: BP 126/95; PULSE 115; RESP 18; TEMP 36.9; O2SAT 100
[2020-03-05 06:24] LABS: Hematocrit 40.4 % (42.0-52.0); Hemoglobin 13.9 g/dL (14.0-18.0); Mean Corpuscular HGB Conc 34.4 g/dl (32-36); Mean Corpuscular Hemoglobin 29.5 pg (26-34); Mean Corpuscular Volume 85.8 fl (80-100); Mean Platelet Volume 10.9 fl (7.4-10.4); Platelet Count Result 252 k/mm3 (150-375); Red Blood Count 4.71 M/mm3 (4.6-6.20); Red Cell Distribution Width 12.3 % (11.5-14.5); White Blood Count 7.3 K/mm3 (4.5-10.0)
[2020-03-05 06:54] LABS: Alanine Aminotransferase 406 U/L (4-50); Albumin Level 3.5 g/dL (3.5-5.1); Alkaline Phosphatase 109 U/L (38-126); Anion Gap 8 mmol/L (8-16); Aspartate Amino Transferase 254 U/L (17-59); Bilirubin,Total 0.6 mg/dL (0.2-1.3); Blood Urea Nitrogen 9 mg/dL (9-20); Calcium 8.8 mg/dL (8.4-10.2); Carbon Dioxide 28 mmol/L (22-30); Chloride 105 mmol/L (98-107); Estimated CRCL calculation 100 ml/min; Estimated Glomerular Filt Rate > 60; Glucose 139 mg/dL (75-110); Potassium 3.7 mmol/L (3.4-5.0); Sodium 141 mmol/L (137-145)
[2020-03-05] MEDS: NICOTINE (*PBKC) 21 MG PATCH 1 PATCH TRANSDERM (08:40)
[2020-03-05 13:37] VITALS: PULSE 111
[2020-03-05 13:51] VITALS: BP 115/77; BP 135/83
[2020-03-05 13:52] VITALS: BP 135/83
[2020-03-05 14:00] VITALS: PULSE 109; RESP 18; TEMP 37.1; O2SAT 99
--- NOTE | 2020-03-05 14:03 | PC.NURSE ---
On 03/05/20, the student, [ Christina Cohen [employer] professor of nursing], provided care and completed [employer] documentation on this patient. I have reviewed the student's documentation and agree with the findings.
--- NOTE | 2020-03-05 16:22 | PM.DS ---
DS: Admitting Diagnosis Admitting Diagnosis Admitting Diagnosis: SIRS, cellulitis right arm DS: Discharge Diagnosis Discharge Diagnosis (1) Sepsis: Code(s): A41.9 - Sepsis, unspecified organism Status: Acute Assessment and Plan: Present on admission and supported by fever, tachycardia, and leukocytosis. He is an IV drug user and last used crystal methamphetamine 1 day prior to admission. The likely source of infection is cellulitis. He was treated with IV vancomycin and Zosyn and will continue p.o. Bactrim as an outpatient. Blood cultures with NGTD and final cultures will be monitored. He remained hemodynamically stable. Sepsis resolved. (2) Cellulitis of left arm: Code(s): L03.114 - Cellulitis of left upper limb Status: Acute Assessment and Plan: He reports that an ulceration of the proximal dorsal forearm of the LUE developed 8 weeks ago and notes two additional ulcerations developed distal to that lesion subsequently. He noted thick dark, red/brown discharge from the lesions intermittently which has since stopped. MRI was performed 02/27/20 and read by the radiologist as: Skin thickening and subcutaneous edema suggestive of cellulitis extending along the dorsal aspect of the forearm which appears centered around the subcutaneous vein suggesting possible thrombophlebitis as etiology. More focal 1.8 x 0.8 x 1.2 cm nodular lesion appears to extend to the skin surface. Although neoplasm cannot be absolutely excluded the surrounding edema and skin thickening suggests an inflammatory etiology differential would include granuloma/phlegmon, draining abscess or hematoma. Due to concern for possible septic thrombophlebitis, venous doppler US was performed which demonstrated patent vein without thrombus. Palpable cord appreciated at the vein may be due to inflammation from recurrent IV drug use in the vein. He was seen in consultation by general surgery and no surgical intervention was required. He may follow-up with Dr. Agarwal as an outpatient if the lesion were to increase in size, or develop drainage or purulence. Continue p.o. Bactrim as an outpatient for 10 days and follow-up with PCP. (3) Cellulitis of right lower extremity: Code(s): L03.115 - Cellulitis of right lower limb Status: Acute Assessment and Plan: Right lower extremity was initially erythematous, warm, and tender. He does have chronic venous insufficiency with healed venous ulcer and evidence of chronic stasis dermatitis with superimposed cellulitis. There was no abscess appreciated. The area was marked and showed gradual improvement within the marked borders. Warmth and tenderness resolved. Continue p.o. Bactrim as noted above and follow-up with PCP for further monitoring. (4) Drug abuse, IV: Code(s): F19.10 - Other psychoactive substance abuse, uncomplicated Status: Acute Assessment and Plan: He reports that he last used methamphetamine 1 day prior to admission. He used heroin in the past but notes he has not used this in several years. Urine drug screen was negative. He is at risk for infectious endocarditis due to IV drug use. Preliminary BCx with NGTD but ALAYNA will be needed if blood cultures were to become positive. Final cultures will be closely monitored. He was monitored closely for any signs of withdrawal and displayed mild sinus tachycardia and irritability. Drug cessation was extensively encouraged for greater than 30 minutes. Risks of continued drug use including severe infection or fatal overdose explained. Patient agreed and understands. We discussed formal rehab program although he is not interested at this time due to his work schedule. He has attended NA meetings in the past and plans to return. He was provided resources from critical care specialist. (5) Venous stasis syndrome: Code(s): I87.8 - Other specified disorders of veins Status: Acute Assessment and Plan: Venous do
== END 2020-03-05 16:50 | disposition home or self-care (01) | DRG 872 ==
LOC: ANHED 12:48 → ANH3MEDSUR 03-02 01:33
PROVIDERS: Family Medicine; Nurse Practitioner; Physician Assistant; Admitting Provider Family Medicine; Emergency Provider Family Medicine; PCP Physician Assistant; Visit Provider Physician Assistant
DX: A41.9 Sepsis, unspecified organism (principal); L03.114 Cellulitis of left upper limb; L03.115 Cellulitis of right lower limb; Z20.828 Contact with and (suspected) exposure to other viral communicable diseases; F19.10 Other psychoactive substance abuse, uncomplicated; F41.9 Anxiety disorder, unspecified; I87.8 Other specified disorders of veins; F17.210 Nicotine dependence, cigarettes, uncomplicated; G47.33 Obstructive sleep apnea (adult) (pediatric); E87.6 Hypokalemia; R74.01 Elevation of levels of liver transaminase levels; Z79.899 Other long term (current) drug therapy
CPT/HCPCS: 36415; 36600; 70450; 71045; 76705; 80048; 80053; 80074; 80202; 80307; 81001; 82375; 82805; 83050; 83605; 83690; 83735; 84443; 84484; 85025; 85027; 85610; 85730; 86140; 86703; 87040; 87635; 87804; 93005; 93970; 96365; 99285; A9270; C9803; G0432; J0131; J0692; J1650; J1741; J2543; J3370; J7030; U0003

== ENCOUNTER 2020-05-01 19:29 | Inpatient (IN) | payer OTHER, SELFPAY ==
--- NOTE | ~2020-05-01 | XR_ITS ---
EXAMINATION: XR forearm LT 2V INDICATION: Left arm swelling TECHNIQUE: Two views of the left forearm are obtained. COMPARISON: None available FINDINGS: Bone alignment is normal. There is no fracture. Diffuse soft tissue swelling is seen predom inantly anteriorly in the left forearm. IMPRESSION: 1. Left forearm soft tissue swelling without acute osseous abnormality. Reviewed, dictated and finalized at location A. NESS INTEGRATION MANAGER
--- NOTE | ~2020-05-01 | XR_ITS ---
EXAMINATION: XR humerus LT INDICATION: Left arm swelling TECHNIQUE: Two views of the left humerus are obtained. COMPARISON: None available FINDINGS: There is no fracture, dislocation, or subluxation. The joint spaces are normal. Soft tissue swelling is seen near the distal humerus and extending into the forearm. IMPRESSION: 1. Soft tissue swelling without acute osseous abnormality. Reviewed, dictated and finalized at location A. BASES SOFTWARE CONSULTANT
--- NOTE | ~2020-05-01 | XR_ITS ---
EXAMINATION: XR elbow LT min 3V DATE: 05/01/2020 20:51 INDICATION: Left arm swelling TECHNIQUE: Anteroposterior, two oblique and lateral views of the left elbow were obtained. COMPARISON: None. FINDINGS: Alignment is normal. No fracture or joint effusion. Joint spaces are normal. Soft tissue sw elling is noted. IMPRESSION: 1. Soft tissue swelling without acute osseous abnormality. Reviewed, dictated and finalized at location A. BENDING MACHINE OPERATOR
[2020-05-01 19:30] VITALS: BP 143/85; PULSE 138; RESP 20; TEMP 37.1; O2SAT 100
--- NOTE | 2020-05-01 19:46 | ED.UPPEXIN ---
HPI - Extremity Injury (Upper) General Chief Complaint: Extremity Injury, Upper Stated Complaint: L arm swollen Time Seen by Provider: 05/01/20 19:46 Source: patient Mode of arrival: ambulatory Limitations: no limitations History of Present Illness HPI narrative: Patient is a 39-year-old male with a history of IV drug abuse, methamphetamine abuse, recurrent cellulitis, who presents for evaluation of left arm swelling, redness and pain. Patient states that her left arm became red and swollen yesterday, has increased over the past 24 hours. He denies fever or chills. He denies nausea or vomiting. Patient states he recently had a very severe infection in the same extremity 2 months previously for which she was admitted to this hospital. At that point, patient had abscesses that required drainage as well as an infection in his right lower leg. Patient is not currently on any antibiotics. Patient with last amphetamine use yesterday. Related Data Home Medications Medication Instructions Recorded Confirmed No Home Medications 05/01/20 05/01/20 Allergies Allergy/AdvReac Type Severity Reaction Status Date / Time No Known Allergies Allergy Mild Verified 05/01/20 19:33 Review of Systems Review of Systems: Narrative: CONSTITUTIONAL: Denies fever, chills, or sweats. ENT: Denies rhinorrhea, congestion CARDIOVASCULAR: Denies chest pain, palpitations, or edema. RESPIRATORY: Denies cough or dyspnea. GASTROINTESTINAL: Denies abdominal pain GENITOURINARY: Denies dysuria or hematuria. SKIN: Reports left arm redness MUSCULOSKELETAL: Denies back pain, reports left elbow pain, left forearm pain NEUROLOGIC: Denies headache, numbness, or weakness. PSYCHIATRIC: History of anxiety and depression [facility] Past Medical History Medical History Allergies Anxiety Anxiety and depression Depression Elevated fasting glucose Excessive cerumen in both ear canals Foot callus History of kidney stones Irritability and anger Lipodermatosclerosis of lower extremity due to varicose veins Lyme disease Mass of skin of left forearm Obesity (BMI 30.0-34.9) Obstructive sleep apnea Prostate cancer screening Seasonal allergies Sinus tachycardia Tobacco abuse Venous stasis syndrome Surgical History Surgical History History of arthroplasty of left ankle Family History Family History Mother No problems noted. Father Diabetes mellitus Grandparent , Paternal Grandfather Lung disease Grandparent , Paternal Grandmother No problems noted. Grandparent , Maternal Grandmother Diabetes mellitus Grandparent , Maternal Grandfather Heart disease Sibling No problems noted. Sibling No problems noted. 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 The patient continues to smoke. He has a known heroin abuse. His mother was not aware of any recent heroin use but he told the ER that it had been a month ago that he used heroin. The mother stated that he had been on Suboxone for about 2 years. Other social history not known. The mother stated that he stays in a hotel most the time. Smoking status: Current every day smoker Second hand tobacco smoke exposure: No Alcohol intake: former Substance use: current Last use: 3-4 weeks Gender identity (if verbalized by the patient): Male Agree to blood products: Yes Exam Narrative: Exam Narrative: GENERAL: Awake, alert, conversant HEAD: Normocephalic, atraumatic. EYES: PERRLA and EOMI. ENT: Nares clear, no rhinorrhea or epistaxis. Mucous membranes moist. NECK: Supple. CHEST: No respiratory distress,
[2020-05-01] MEDS: MORPHINE SULFATE (*CRX) 4 MG/ML INJ IV PUSH (20:15)
[2020-05-01] MEDS: ONDANSETRON INJ 4 MG/2 ML VIAL IV PUSH (20:15)
[2020-05-01] MEDS: SODIUM CHLORIDE 0.9% IV 1,000 ML 999 ML IV CONT (20:16)
[2020-05-01 20:23] LABS: Basophils Percent Auto 0.2 % (0.2-1.2); Hematocrit 43.8 % (42.0-52.0); Hemoglobin 15.2 g/dL (14.0-18.0); Immature Granulocyte Absolute 0.06 K/mm3 (0.00-0.031); Immature Granulocyte Percent A 0.5 % (0-0.5); Lymphocytes Absolute Auto 1.64 K/mm3 (0.9-3.2); Mean Corpuscular HGB Conc 34.7 g/dl (32-36); Mean Corpuscular Hemoglobin 30.5 pg (26-34); Mean Corpuscular Volume 87.8 fl (80-100); Mean Platelet Volume 10.1 fl (7.4-10.4); Monocytes Absolute Auto 1.1 K/mm3 (0.1-0.6); Monocytes Percent Auto 8.3 % (2.6-8.5); Neutrophils Absolute Auto 9.8 K/mm3 (1.3-6.7); Platelet Count Result 246 k/mm3 (150-375); Red Blood Count 4.99 M/mm3 (4.6-6.20); Red Cell Distribution Width 13.1 % (11.5-14.5); White Blood Count 12.6 K/mm3 (4.5-10.0)
[2020-05-01 20:35] LABS: Lactic Acid Reflex 1.6 mmol/L (0.7-2.1)
[2020-05-01 20:36] LABS: Anion Gap 6 mmol/L (8-16); Blood Urea Nitrogen 12 mg/dL (9-20); Calcium 8.9 mg/dL (8.4-10.2); Carbon Dioxide 27 mmol/L (22-30); Chloride 103 mmol/L (98-107); Estimated CRCL calculation 123 ml/min; Estimated Glomerular Filt Rate > 60; Glucose 178 mg/dL (75-110); Potassium 3.6 mmol/L (3.4-5.0); Sodium 136 mmol/L (137-145)
[2020-05-01 20:52] LABS: CRP 13.1 mg/dL (<1.0)
[2020-05-01 21:15] LABS: Erythrocyte Sedimentation Rate 64 mm/hr (0-20)
--- NOTE | 2020-05-01 22:39 | ADMGEN ---
This patient, Clem Mike Jr., was admitted to Medical Room 348-01. Patient/family oriented to hospital policies and general routines including ID bracelet, bed and alarms, visiting hours, pain management, procedures, bathroom and other care routines, personal items, smoking policy, room service/diet, and visiting hours. Information on how to activate the Rapid Response Team has been discussed. Patient/Family are encouraged to report perceived risks to care and to ask questions if they do not understand what they are told or what they should do.
[2020-05-01 22:43] VITALS: BMI 29.3
[2020-05-01 22:44] VITALS: BP 105/51; PULSE 98; RESP 18; TEMP 36.2; O2SAT 99
[2020-05-01 22:47] VITALS: BP 105/51; PULSE 98; RESP 18; TEMP 36.2; O2SAT 99
[2020-05-01 23:01] VITALS: BP 134/89; PULSE 78; RESP 16; TEMP 36.7; O2SAT 98
--- NOTE | 2020-05-01 23:25 | PM.IMHP ---
H&P: HPI History of Present Illness Date/Time: 05/01/20 23:25 Chief complaint: Sepsis, left arm cellulitis Narrative: Clem Mike Jr. is a 39 year old male past medical history of IV drug use crystal meth with history of multiple episodes of cellulitis who presents to ED with complaints of new left upper extremity pain for last 24 hours. He has had multiple issues in the past with with IV drug use infections. Admitted 03/01-03/05/2020 with right upper extremity cellulitis treated with vancomycin and Zosyn and then p.o. Bactrim. He has chronic venous insufficiency with heel venous ulcer on his right lower extremity. He never did have any drainable abscesses in previous admission. Patient uses tobacco and is not interested in cessation at this time, and is requesting nicotine patch. In the ED: Patient appeared to have left upper extremity cellulitis with no crepitus. X-rays showed swelling with no osseous abnormality. In the ED he was found to be septic with tachycardia heart rate 138 and WBC 12.6 with source of infection being cellulitis. Patient was given IV vancomycin and admitted for observation. Review of Systems Review of Systems: Narrative: Constitutional: No Fever, No Chills, No Night Sweats, No Fatigue, No Malaise ENT/Mouth: No Hearing Changes, No Ear Pain, No Nasal Congestion, No Sinus Pain, No Hoarseness, No sore throat, No Rhinorrhea, No Swallowing Difficulty Eyes: No Eye Pain, No Redness, No Vision Changes Cardiovascular: No Chest Pain, No Palpitations, No Dyspnea on Exertion, No Orthopnea, No Claudication, No Edema Respiratory: No Cough, No Sputum, No Wheezing, No Shortness of Breath Gastrointestinal: No Nausea, No Vomiting, No Diarrhea, No Constipation, No Abdominal Pain, No Heartburn, No Hematochezia, No Melena Genitourinary: No Dysuria, No Urinary Frequency, No Hematuria, No Urinary Incontinence, No Urgency Musculoskeletal: No Arthralgias, No Myalgias, No Joint Swelling, No Joint Stiffness, No Back Pain. Skin: Erythema on left upper extremity with warmth and tenderness going up arm. Neuro: No Weakness, No Numbness, No Paresthesias, No Loss of Consciousness, No Syncope, No Dizziness, No Headache Psych: No Anxiety/Panic, No Depression, No Insomnia Heme: No Bruising, No Bleeding Lymph: No Adenopathy Endocrine: No Polyuria, No Polydipsia, No Temperature Intolerance PMFSH Past Medical History Medical History Allergies Anxiety Anxiety and depression Depression Elevated fasting glucose Excessive cerumen in both ear canals Foot callus History of kidney stones Irritability and anger Lipodermatosclerosis of lower extremity due to varicose veins Lyme disease Mass of skin of left forearm Obesity (BMI 30.0-34.9) Obstructive sleep apnea Prostate cancer screening Seasonal allergies Sinus tachycardia Tobacco abuse Venous stasis syndrome Surgical History Surgical History History of arthroplasty of left ankle Family History Family History Mother No problems noted. Father Diabetes mellitus Grandparent , Paternal Grandfather Lung disease Grandparent , Paternal Grandmother No problems noted. Grandparent , Maternal Grandmother Diabetes mellitus Grandparent , Maternal Grandfather Heart disease Sibling No problems noted. Sibling No problems noted. Social History Social History Social History: according to his mother Jocelyn the patient does not have a durable power of sports attorney for healthcare but is a full code. The patient continues to smoke. He has a known heroin abuse. His mother was not aware of any recent heroin use but he told the ER that it had been a month ago that he used heroin. The mother stated maricruz
[2020-05-02] MEDS: NICOTINE (*PBKC) 21 MG PATCH 1 PATCH TRANSDERM ×2 (00:24→07:59)
[2020-05-02 04:52] VITALS: BP 131/83; PULSE 89; RESP 16; TEMP 36.9; O2SAT 100
[2020-05-02 06:55] LABS: Hematocrit 41.4 % (42.0-52.0); Mean Corpuscular HGB Conc 33.8 g/dl (32-36); Mean Corpuscular Hemoglobin 29.5 pg (26-34); Mean Corpuscular Volume 87.3 fl (80-100); Mean Platelet Volume 10.6 fl (7.4-10.4); Platelet Count Result 225 k/mm3 (150-375); Red Blood Count 4.74 M/mm3 (4.6-6.20); Red Cell Distribution Width 13.1 % (11.5-14.5); White Blood Count 8.8 K/mm3 (4.5-10.0)
[2020-05-02 07:09] LABS: Anion Gap 7 mmol/L (8-16); Blood Urea Nitrogen 11 mg/dL (9-20); Calcium 8.3 mg/dL (8.4-10.2); Carbon Dioxide 24 mmol/L (22-30); Chloride 106 mmol/L (98-107); Estimated CRCL calculation 160 ml/min; Estimated Glomerular Filt Rate > 60; Glucose 110 mg/dL (75-110); Potassium 3.7 mmol/L (3.4-5.0); Sodium 137 mmol/L (137-145)
[2020-05-02] MEDS: ACETAMINOPHEN 325 MG TABLET 650 MG PO (07:58)
--- NOTE | 2020-05-02 08:42 | PM.IMPN ---
Progress Note: A&P Assessment and Plan (1) Cellulitis of left arm: Code(s): L03.114 - Cellulitis of left upper limb Status: Acute Assessment and Plan: Continue vancomycin Blood cultures pending (2) Sepsis: Qualifiers: Sepsis acute organ dysfunction status: without acute organ dysfunction Sepsis type: sepsis due to unspecified organism Qualified Code(s): A41.9 - Sepsis, unspecified organism Code(s): A41.9 - Sepsis, unspecified organism Status: Acute Assessment and Plan: Resolved (3) Methamphetamine abuse: Code(s): F15.10 - Other stimulant abuse, uncomplicated Status: Acute Assessment and Plan: Provided number to call for drug abuse help (4) Tobacco abuse: Code(s): Z72.0 - Tobacco use Status: Acute Assessment and Plan: Not interested in quitting (5) Venous stasis syndrome: Code(s): I87.8 - Other specified disorders of veins Status: Acute Subjective Date/time seen: 05/02/20 08:42 Interval history: 39-year-old male with history of methamphetamine abuse and prior multiple episodes of cellulitis related to injection drug use was seen in the emergency room for left upper extremity swelling and redness. He was admitted for presumed cellulitis. 05/02 Sleeping. Minimally cooperative. Review of Systems Review of Systems: Narrative: Patient is uncooperative ROS unobtainable: Yes unobtainable due to mental status Exam Narrative: Exam Narrative: HEENT: EOMI, PERRL, sclerae nonicteric, pharyngeal mucosa pink and intact NECK: No JVD, adenopathy, or thyromegaly CHEST: Clear to auscultation. Normal effort. HEART: NL S1/S2, regular, no murmur ABDOMEN: BS+, soft, nontender, no mass, no bruits EXTREMITIES: No cyanosis, edema, or clubbing. erythema and induration over left antecubital fossa proximal forearm and distal arm NEUROLOGIC: CN intact and symmetric to inspection. MUSCULOSKELETAL: Tone and strength symmetric. PSYCH: drowsy but arouses easily Objective Data Vital Signs Vital Signs: Vital Signs - 24 hr 05/01/20 19:30 05/01/20 22:44 05/01/20 22:47 Temperature 98.8 F 97.1 F L 97.1 F L Pulse Rate 138 H 98 98 Respiratory Rate 20 18 18 Blood Pressure 143/85 H 105/51 L 105/51 L Pulse Oximetry 100 99 99 05/01/20 23:01 05/02/20 04:52 Temperature 98.1 F 98.4 F Pulse Rate 78 89 Respiratory Rate 16 16 Blood Pressure 134/89 131/83 Pulse Oximetry 98 100 Intake/Output Intake/Output: Intake & Output 04/29/20 04/30/20 05/01/20 05/02/20 23:59 23:59 23:59 23:59 Intake Total 1100 50 Balance 1100 50 Meds/Results Medications: Active Medications Generic Name Dose Route Start Last Admin Trade Name Freq PRN Reason Stop Dose Admin Acetaminophen 650 mg 05/01/20 20:44 05/02/20 07:58 Acetaminophen 325 Mg Tablet PO 650 mg Q4H PRN Administration Mild Pain (1-3) or Fever Vancomycin HCl 1,500 mg in 500 mls @ 333.333 mls/hr 05/02/20 09:00 05/02/20 07:58 Vancomycin 1,500 Mg/D5w 500 Ml IVPB 333.33 mls/hr Q12H CHELO Administration Nicotine 1 patch 05/01/20 23:40 05/02/20 07:59 Nicotine (*Pbkc) 21 Mg Patch TRANSDERM 1 patch QAM CHELO Administration Trimethoprim/Sulfamethoxazole 1 tab 05/01/20 23:45 05/02/20 00:24 Trimethoprim/Sulfamethoxazole 160-800 Mg Ds Tablet PO 1 tab Q12HR CHELO Administration Radiology Results: ITS Impressions Elbow X-Ray 05/01/20 20:56 IMPRESSION: 1. Soft tissue swelling without acute osseous abnormality. Forearm X-Ray 05/01/20 20:59 IMPRESSION: 1. Left forearm soft tissue swelling without acute osseous abnormality. Humerus X-Ray 05/01/20 21:00 IMPRESSION: 1. Soft tissue swelling without acute osseous abnormality. Labs Labs: Laboratory Results - last 24 hr 05/01/20 05/01/20 05/01/20 20:11 20:11 20:11 WBC 12.6 H RBC 4.99 Hgb 15.2 Hct 43.8 MCV 87.8 MCH 30.5 MCHC 34.7
[2020-05-02 14:00] VITALS: BP 130/85; PULSE 92; RESP 16; TEMP 36.5; O2SAT 99
[2020-05-02 22:00] VITALS: BP 135/87; PULSE 108; RESP 20; TEMP 36.4; O2SAT 99
[2020-05-03 06:00] VITALS: BP 136/88; PULSE 99; RESP 21; TEMP 36.6; O2SAT 100
--- NOTE | 2020-05-03 07:34 | PM.IMPN ---
Progress Note: A&P Assessment and Plan (1) Cellulitis of left arm: Code(s): L03.114 - Cellulitis of left upper limb Status: Acute Assessment and Plan: Continue vancomycin Blood cultures pending (2) Sepsis: Qualifiers: Sepsis acute organ dysfunction status: without acute organ dysfunction Sepsis type: sepsis due to unspecified organism Qualified Code(s): A41.9 - Sepsis, unspecified organism Code(s): A41.9 - Sepsis, unspecified organism Status: Acute Assessment and Plan: Resolved (3) Methamphetamine abuse: Code(s): F15.10 - Other stimulant abuse, uncomplicated Status: Acute Assessment and Plan: Provided number to call for drug abuse help (4) Tobacco abuse: Code(s): Z72.0 - Tobacco use Status: Acute Assessment and Plan: Not interested in quitting (5) Venous stasis syndrome: Code(s): I87.8 - Other specified disorders of veins Status: Acute Subjective Date/time seen: 05/03/20 07:34 Interval history: 39-year-old male with history of methamphetamine abuse and prior multiple episodes of cellulitis related to injection drug use was seen in the emergency room for left upper extremity swelling and redness. He was admitted for presumed cellulitis. 05/03 Feeling better today. Tolerated diet. 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 Review of Systems Review of Systems: All systems reviewed & are unremarkable except as noted in HPI and below Exam Narrative: Exam Narrative: HEENT: EOMI, PERRL, sclerae nonicteric, pharyngeal mucosa pink and intact NECK: No JVD, adenopathy, or thyromegaly CHEST: Clear to auscultation. Normal effort. HEART: NL S1/S2, regular, no murmur ABDOMEN: BS+, soft, nontender, no mass, no bruits EXTREMITIES: No cyanosis, edema, or clubbing. Fading erythema and induration over left antecubital fossa proximal forearm and distal arm NEUROLOGIC: CN intact and symmetric to inspection. MUSCULOSKELETAL: Tone and strength symmetric. PSYCH: Alert. Ox3. Cooperative. Objective Data Vital Signs Vital Signs: Vital Signs - 24 hr 05/02/20 14:00 05/02/20 22:00 Temperature 97.7 F 97.6 F Pulse Rate 92 108 H Respiratory Rate 16 20 Blood Pressure 130/85 135/87 Pulse Oximetry 99 99 Intake/Output Intake/Output: Intake & Output 04/30/20 05/01/20 05/02/20 05/03/20 23:59 23:59 23:59 23:59 Intake Total 1100 1660 Balance 1100 1660 Meds/Results Medications: Active Medications Generic Name Dose Route Start Last Admin Trade Name Freq PRN Reason Stop Dose Admin Acetaminophen 650 mg 05/01/20 20:44 05/02/20 07:58 Acetaminophen 325 Mg Tablet PO 650 mg Q4H PRN Administration Mild Pain (1-3) or Fever Vancomycin HCl 1,500 mg in 500 mls @ 333.333 mls/hr 05/02/20 09:00 05/02/20 22:58 Vancomycin 1,500 Mg/D5w 500 Ml IVPB Infused Q12H CHELO Infusion Nicotine 1 patch 05/01/20 23:40 05/02/20 07:59 Nicotine (*Pbkc) 21 Mg Patch TRANSDERM 1 patch QAM CHELO Administration Trimethoprim/Sulfamethoxazole 1 tab 05/01/20 23:45 05/02/20 21:27 Trimethoprim/Sulfamethoxazole 160-800 Mg Ds Tablet PO 1 tab Q12HR CHELO Administration Radiology Results: ITS Impressions Elbow X-Ray 05/01/20 20:56 IMPRESSION: 1. Soft tissue swelling without acute osseous abnormality. Forearm X-Ray 05/01/20 20:59 IMPRESSION: 1. Left forearm soft tissue swelling without acute osseous abnormality. Humerus X-Ray 05/01/20 21:00 IMPRESSION: 1. Soft tissue swelling without acute osseous abnormality. Quality VTE Prophylaxis VTE prophylaxis: pharmacologic ordered
[2020-05-03] MEDS: NICOTINE (*PBKC) 21 MG PATCH 1 PATCH TRANSDERM (08:32)
[2020-05-03 09:23] LABS: Vancomycin Trough 6.3 ug/mL (10.0-20.0)
[2020-05-03 14:00] VITALS: BP 160/99; PULSE 97; RESP 16; TEMP 37.1; O2SAT 97
[2020-05-03] MEDS: ENOXAPARIN 40 MG/0.4 ML SYRINGE SUB-Q (17:34)
[2020-05-03 20:26] VITALS: BP 149/86; PULSE 104; RESP 16; TEMP 36.8; O2SAT 100
[2020-05-04 06:12] VITALS: BP 144/89; PULSE 92; RESP 16; TEMP 36.6; O2SAT 100
[2020-05-04 06:15] LABS: Hematocrit 44.4 % (42.0-52.0); Hemoglobin 14.8 g/dL (14.0-18.0); Mean Corpuscular HGB Conc 33.3 g/dl (32-36); Mean Corpuscular Hemoglobin 29.8 pg (26-34); Mean Corpuscular Volume 89.3 fl (80-100); Mean Platelet Volume 10.6 fl (7.4-10.4); Platelet Count Result 282 k/mm3 (150-375); Red Blood Count 4.97 M/mm3 (4.6-6.20); Red Cell Distribution Width 12.8 % (11.5-14.5); White Blood Count 6.6 K/mm3 (4.5-10.0)
[2020-05-04 06:31] LABS: Alanine Aminotransferase 41 U/L (4-50); Albumin Level 3.6 g/dL (3.5-5.1); Alkaline Phosphatase 115 U/L (38-126); Aspartate Amino Transferase 25 U/L (17-59); Bilirubin,Total 0.3 mg/dL (0.2-1.3)
[2020-05-04 06:35] LABS: Anion Gap 4 mmol/L (8-16); Blood Urea Nitrogen 7 mg/dL (9-20); CRP 1.8 mg/dL (<1.0); Carbon Dioxide 27 mmol/L (22-30); Chloride 105 mmol/L (98-107); Estimated CRCL calculation 123 ml/min; Estimated Glomerular Filt Rate > 60; Glucose 126 mg/dL (75-110); Potassium 4.2 mmol/L (3.4-5.0); Sodium 136 mmol/L (137-145)
[2020-05-04] MEDS: NICOTINE (*PBKC) 21 MG PATCH 1 PATCH TRANSDERM (09:06)
--- NOTE | 2020-05-04 10:36 | PM.DS ---
DS: Admitting Diagnosis Admitting Diagnosis Admitting Diagnosis: Sepsis, left arm cellulitis DS: Discharge Diagnosis Discharge Diagnosis (1) Cellulitis of left arm: Code(s): L03.114 - Cellulitis of left upper limb Status: Acute Assessment and Plan: Patient received vancomycin while hospitalized and improved. The day of discharge he had no further erythema but still did have some pain. He is an IV drug user and was discharged on Bactrim. Blood cultures finalize negative (2) Sepsis: Qualifiers: Sepsis type: sepsis due to unspecified organism Sepsis acute organ dysfunction status: without acute organ dysfunction Qualified Code(s): A41.9 - Sepsis, unspecified organism Code(s): A41.9 - Sepsis, unspecified organism Status: Acute Assessment and Plan: Resolved, secondary to above. Blood cultures negative (3) Methamphetamine abuse: Code(s): F15.10 - Other stimulant abuse, uncomplicated Status: Acute Assessment and Plan: Resources and Education given. Patient seems reluctant. Patient states he works too much to go to rehab (4) Tobacco abuse: Code(s): Z72.0 - Tobacco use Status: Acute Assessment and Plan: He continues to smoke although he was educated about the adverse effects of this (5) Venous stasis syndrome: Code(s): I87.8 - Other specified disorders of veins Status: Acute DS: Summary Hospital Course Reason for hospitalization: Cellulitis Hospital Course: Patient is a 39-year-old male who is not IV drug abuser who presented to the emergency room with left arm pain and erythema to the left arm. Vitals in the ER were temperature 37.1?, Pulse 138, respiratory rate 20, blood pressure 143/85, pulse ox 100 on room air. Initial white blood cell count 12.6. Elbow x-ray showed soft tissue swelling without osseous abnormality. Patient was admitted to the hospitalist service and started on vancomycin. He improved significantly on this medication as did his vitals. His blood pressure ran a little high which was likely due to pain. The day of discharge he had no further erythema but did have some pain and the elbow. He had no problems with passive extension and pulses were intact. Overall, the patient had made improvement. He was educated to follow up with the primary care physician in 1-2 weeks after this stay and take all of his antibiotics. Who was discussed that he should return to the emergency room for any worrisome signs and symptoms. He was discharged in stable condition Date of discharge 05/04/20 Time spent discussing smoking cessation with patient: more than 10 minutes Status at Discharge Functional status at discharge: independent ambulation Overall status at discharge: patient is back to baseline Time Spent with Patient Time attestation: Total time spent providing and/or coordinating discharge services:34 min Time spent: Greater than 30 minutes Exam Narrative: Exam Narrative: General: Well developed well nourished patient in NAD HEENT: normocephalic Neck: supple Neuro: Alert and oriented x4 CV:RRR Resp:CTA Abd: Soft, non distended. No pain to palpation. Positive bowel sounds Extremities: Left arm with no erythema or discharge. Patient had normal passive range of motion that elicit some pain. No swelling in the joint or erythema of the joint. Pulses intact. DS: Data Data Completed and Pending Labs on day of discharge: Labs from last 24 hours 05/04/20 05/04/20 05/04/20 05:11 05:11 05:11 WBC 6.6 RBC 4.97 Hgb 14.8 Hct 44.4 MCV 89.3 MCH 29.8 MCHC 33.3 RDW 12.8 Plt Count 282 MPV 10.6 H Sodium 136 L Potassium 4.2 Chloride 105 Carbon Dioxide 27 Anion Gap 4 L BUN 7 L Creatinine 0.80 Estim Creat Clear Calc 123 Estimated GFR > 60 Glucose 126 H Calcium 9.0 Total Bilirubin 0.3 Direct Bilirubin 0.0 AST 25 ALT
--- NOTE | 2020-05-11 14:44 | PC.NURSE ---
Blood cx are negative.
== END 2020-05-04 11:20 | disposition home or self-care (01) | DRG 872 ==
LOC: ANHED 20:18 → ANH3MED 22:28
PROVIDERS: Internal Medicine; Admitting Provider Student in an Organized Health Care Education/Training Program; Emergency Provider Emergency Medicine; Referring Provider Family Medicine; Visit Provider Physician Assistant
DX: A41.9 Sepsis, unspecified organism (principal); L03.114 Cellulitis of left upper limb; D69.6 Thrombocytopenia, unspecified; F15.10 Other stimulant abuse, uncomplicated; F17.210 Nicotine dependence, cigarettes, uncomplicated; G47.33 Obstructive sleep apnea (adult) (pediatric); I87.8 Other specified disorders of veins
CPT/HCPCS: 36415; 73060; 73080; 73090; 80048; 80076; 80202; 83605; 85025; 85027; 85652; 86140; 87040; 96361; 96365; 96366; 96374; 96375; 99285; A9270; G0378; J0131; J1650; J2270; J2405; J3370; J7030

== ENCOUNTER 2020-07-12 19:21 | Inpatient (IN) | payer OTHER, SELFPAY ==
[2020-07-12] VITALS (16 sets, daily range): BP systolic 127–164; BP diastolic 62–91; PULSE 120–135; RESP 16–26; TEMP 37.3–39.2; O2SAT 97–100; BMI 30.2
--- NOTE | ~2020-07-12 | XR_ITS ---
EXAMINATION: XR chest 1V portable EXAM DATE: 07/12/2020 19:57 INDICATION: Fever and body aches started today. TECHNIQUE: Portable AP frontal chest x-ray was obtained. Comparison is made to prior examination from 03/01/2020. FINDINGS: The lungs are clear. There are no pleural effusions. The cardiomediastinal silhouette is within normal limits. There is no pneumothorax suspected. The bones and soft tissues are unremarkab le. IMPRESSION: No acute cardiopulmonary findings. Reviewed, dictated and finalized at location A. CLAVE OPERATOR
--- NOTE | 2020-07-12 19:38 | ED.FEVER ---
HPI - Fever General Chief Complaint: Fever Stated Complaint: skin infection Time Seen by Provider: 07/12/20 19:32 Source: patient History of Present Illness HPI Narrative: Patient is 39 years old white male presents with fever today associated with general body aches. Patient reports temperature of 99 up to 103. Patient denies any nausea, vomiting, diarrhea, constipation, chest pain, coughing, sore throat, headache or back pain. Patient also denies any skin rash. History of IV drug user, last IV use was yesterday of crystal meth. Patient denies history of COVID-19 infection or exposure to anybody known to have COVID-19. 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 Patient lives with his mom, drove himself to the emergency room Related Data Home Medications Medication Instructions Recorded Confirmed No Home Medications 07/12/20 Allergies Allergy/AdvReac Type Severity Reaction Status Date / Time No Known Allergies Allergy Mild Verified 05/01/20 22:45 Review of Systems Review of Systems: Narrative: CONSTITUTIONAL: Denies fever, chills, or sweats. EYES: Denies visual changes, redness, or discharge. ENT: Denies rhinorrhea, congestion, sore throat, or otalgia. CARDIOVASCULAR: Denies chest pain, palpitations, or edema. RESPIRATORY: Denies cough or dyspnea. GASTROINTESTINAL: Denies abdominal pain, nausea, vomiting, or diarrhea. GENITOURINARY: Denies dysuria or hematuria. SKIN: Denies rash or itching. MUSCULOSKELETAL: Denies back pain, joint pain, or myalgia. NEUROLOGIC: Denies headache, numbness, or weakness. PSYCHIATRIC: Denies anxiety or depression. [facility] Past Medical History Medical History Allergies Anxiety Anxiety and depression Depression Elevated fasting glucose Excessive cerumen in both ear canals Foot callus History of kidney stones Irritability and anger Lipodermatosclerosis of lower extremity due to varicose veins Lyme disease Mass of skin of left forearm Obesity (BMI 30.0-34.9) Obstructive sleep apnea Prostate cancer screening Seasonal allergies Sinus tachycardia Tobacco abuse Venous stasis syndrome Surgical History Surgical History History of arthroplasty of left ankle Family History Family History Mother No problems noted. Father Diabetes mellitus Grandparent , Paternal Grandfather Lung disease Grandparent , Paternal Grandmother No problems noted. Grandparent , Maternal Grandmother Diabetes mellitus Grandparent , Maternal Grandfather Heart disease Sibling No problems noted. Sibling No problems noted. Social History Social History Social History: according to his mother Jocelyn the patient does not have a durable power of civil rights attorney for healthcare but is a full code. The patient continues to smoke. He has a known heroin abuse. His mother was not aware of any recent heroin use but he told the ER that it had been a month ago that he used heroin. The mother stated that he had been on Suboxone for about 2 years. Other social history not known. The mother stated that he stays in a hotel most the time. Smoking packs per day: 0.8 Smoking cigarettes per day: 16.0 Smoking status: Current every day smoker Tobacco type: cigarettes Second hand tobacco smoke exposure: No Alcohol intake: former Substance use: current Substance use type: heroin and methamphetamine Last use: 3-4 weeks Gender identity (if verbalized by the patient): Male Spiritual care concerns: No Agree to blood products: Yes Exam Narrative: Exam Narrative: General appearance: Well-developed, well-nourished, obese, poor hygiene Skin: Normal color, right forearm thrombophlebitis, tender to touch, no erythema, no discharge Head: Normocephali
--- NOTE | 2020-07-12 19:44 | ECG_ITS ---
Measurements Intervals Cross Rate: 122 P: 7 WV: 126 QRS: 27 QRSD: 78 T: 45 QT: 290 QTc: 415 Interpretive Statements SINUS TACHYCARDIA BASELINE ARTIFACT- I, II, III, AVR, AVL, AVF, V1 ABNORMAL ECG Electronically Signed On 07-12-2020 21:25:10 ALUMINUM BOAT INSPECTOR by Pilo Hamilton D.O.
[2020-07-12] MEDS: SODIUM CHLORIDE 0.9% IV 1,000 ML 999 ML IV CONT (20:13)
[2020-07-12 20:15] LABS: Basophils Percent Auto 0.3 % (0.2-1.2); Eosinophils Absolute Auto 0.1 K/mm3 (0-0.3); Eosinophils Percent Auto 0.4 % (0-4.4); Hematocrit 42.7 % (42.0-52.0); Hemoglobin 14.7 g/dL (14.0-18.0); Immature Granulocyte Absolute 0.05 K/mm3 (0.00-0.031); Immature Granulocyte Percent A 0.4 % (0-0.5); Lymphocytes Absolute Auto 0.84 K/mm3 (0.9-3.2); Lymphocytes Percent Auto 6.4 % (18.3-44.2); Mean Corpuscular HGB Conc 34.4 g/dl (32-36); Mean Corpuscular Hemoglobin 30.2 pg (26-34); Mean Corpuscular Volume 87.9 fl (80-100); Mean Platelet Volume 10.3 fl (7.4-10.4); Monocytes Absolute Auto 0.9 K/mm3 (0.1-0.6); Monocytes Percent Auto 7.2 % (2.6-8.5); Neutrophils Absolute Auto 11.1 K/mm3 (1.3-6.7); Neutrophils Percent Auto 85.3 % (45.5-73.1); Platelet Count Result 278 k/mm3 (150-375); Red Blood Count 4.86 M/mm3 (4.6-6.20); Red Cell Distribution Width 12.5 % (11.5-14.5)
[2020-07-12 20:25] LABS: Prothrombin Time 13.3 Seconds (11.1-14.7)
[2020-07-12 20:27] LABS: Lactic Acid Reflex 1.4 mmol/L (0.7-2.1)
[2020-07-12 20:29] LABS: Alanine Aminotransferase 40 U/L (4-50); Albumin Level 4.2 g/dL (3.5-5.1); Alkaline Phosphatase 74 U/L (38-126); Anion Gap 7 mmol/L (8-16); Aspartate Amino Transferase 24 U/L (17-59); Bilirubin,Total 0.7 mg/dL (0.2-1.3); Blood Urea Nitrogen 15 mg/dL (9-20); CRP 2.9 mg/dL (<1.0); Calcium 8.9 mg/dL (8.4-10.2); Carbon Dioxide 26 mmol/L (22-30); Chloride 102 mmol/L (98-107); Estimated CRCL calculation 110 ml/min; Estimated Glomerular Filt Rate > 60; Glucose 107 mg/dL (75-110); Sodium 135 mmol/L (137-145)
--- NOTE | 2020-07-12 21:08 | PC.NURSE ---
Patient has been unable to urinate. Patient now agrees to use straight catheter to obtain urine specimen.
[2020-07-12 21:26] LABS: Add Urine Microscopic? YES; Appearance Urine Clear (Clear); Bilirubin Urine Negative (Negative); Blood Urine Negative (Negative); Color Urine Yellow (Yellow); Glucose Urine UA Negative (Negative); Ketones Urine Negative (Negative); Leukocyte Esterase Ur Negative LEU/UL (Negative); Mucus Urine Rare /lpf; Nitrate Urine Negative (Negative); Protein Urine 1+ mg/dL (Negative); RBC Urine 0-2 /hpf (0-2); Specific Grav Ur 1.026 (1.001-1.035); WBC Urine 0-3 /hpf
--- NOTE | 2020-07-12 22:42 | PC.NURSE ---
EDP Reza updated on patient's temperature. Per EDP Reza via verbal order read-back, give 1000mg Tylenol PO.
[2020-07-12] MEDS: ACETAMINOPHEN 500 MG TABLET 1000 MG PO (22:45)
--- NOTE | 2020-07-12 23:10 | PC.NURSE ---
This patient, Clem Gonzalesemilee Preston, was admitted to [facility] Surg Room 329-01. Patient/family oriented to hospital policies and general routines including ID bracelet, bed and alarms, visiting hours, pain management, procedures, bathroom and other care routines, personal items, smoking policy, room service/diet, and visiting hours. Information on how to activate the Rapid Response Team has been discussed. Patient/Family are encouraged to report perceived risks to care and to ask questions if they do not understand what they are told or what they should do.
[2020-07-12] MEDS: SODIUM CHLORIDE 0.9% IV 1,000 ML 125 ML IV CONT (23:25)
[2020-07-13] VITALS (7 sets, daily range): BP systolic 118–134; BP diastolic 68–79; PULSE 99–129; RESP 16–20; TEMP 36.5–37.8; O2SAT 93–100
--- NOTE | 2020-07-13 02:10 | PM.IMHP ---
H&P: HPI History of Present Illness Date/Time: 07/13/20 02:10 Chief Complaint: Fever and body aches Narrative: Clem Mike Jr. is a 39 year old male with a past medical history of tobacco use, alcohol use and IV drug use who presented to the ER via private vehicle due to fever and body aches. The patient is concerned he may have cellulitis as he has been admitted multiple times in the past for cellulitis associated with his IV drug use. Source of information is ER records and past medical records as the patient would only wake up to yell out and known when evaluated. The patient evidently reported fever between 99 and 103? at home. He denied any nausea, vomiting, diarrhea, constipation, chest pain, coughing, sore throat, headache or back pain. He reports that his body is generally hurting. He denies any skin rashes or known areas of abscess. He last used crystal meth on the . 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 He denies any known COVID exposures. Review of Systems Review of Systems: ROS unobtainable: Yes other (Unable to obtain due to lack of cooperation from patient.) [facility] Past Medical History Medical History (Updated 07/13/20 @ 03:27 by Odette Bradshaw DO) Alcoholism Allergic rhinitis Anxiety and depression Elevated fasting glucose History of kidney stones Lipodermatosclerosis of lower extremity due to varicose veins Lyme disease Obesity (BMI 30.0-34.9) Obstructive sleep apnea Seasonal allergies Tobacco abuse Venous stasis dermatitis Mild of both ankles Surgical History Surgical History History of arthroplasty of left ankle Family History Family History (Updated 07/13/20 @ 03:28 by Odette Bradshaw DO) Mother No problems noted. Father Diabetes mellitus Grandparent , Paternal Grandfather Lung disease Grandparent , Maternal Grandmother Diabetes mellitus Grandparent , Maternal Grandfather Heart disease Sibling No problems noted. Sibling No problems noted. Social History Social History (Updated 07/13/20 @ 03:29 by Odette Bradshaw DO) Social History: The patient continues to smoke. He is known to have abused heroin and methamphetamines. He both smokes and injects methamphetamines. He has a history of alcoholism with hospitalization in 2006 due to respiratory failure from alcohol intoxication. Smoking packs per day: 0.8 Smoking cigarettes per day: 16.0 Smoking status: Current every day smoker Tobacco type: cigarettes Second hand tobacco smoke exposure: No Alcohol intake: former Substance use: current Substance use type: heroin, IV drugs and methamphetamine Last use: 07/11/20 Gender identity (if verbalized by the patient): Male Spiritual care concerns: No Agree to blood products: Yes Meds Home Medications and Allergies Home Medications Medication Instructions Recorded Confirmed Type No Home Medications 07/12/20 07/12/20 History Allergies Allergy/AdvReac Type Severity Reaction Status Date / Time No Known Allergies Allergy Mild Verified 07/12/20 23:55 Vital Signs Vital Signs - 24 hr 07/12/20 19:25 07/12/20 19:36 07/12/20 19:37 Temperature 99.9 F H Pulse Rate 135 H 134 H 130 H Respiratory Rate 24 H 26 H 26 H Blood Pressure 147/91 H 144/82 H Pulse Oximetry 100 100 100 07/12/20 20:30 07/12/20 21:12 07/12/20 21:14 Temperature 99.1 F Pulse Rate 121 H 124 H 124 H Respiratory Rate 25 H 22 H 20 Blood Pressure 132/75 Pulse Oximetry 97 99 07/12/20 21:15 07/12/20 21:35 07/12/20 21:45 Temperature Pulse Rate 120 H 121 H 125 H Respiratory Rate 24 H 17 26 H Blood Pressure Pulse Oximetry 100 99 99 07/12/20 22:00 07/12/20 22:01 07/12/20 22:41 Temperature 102.5 F H Pulse Rate 127 H 127 H Respiratory Rate 19 24 H Blood Pressure 157/82 H Pulse Oximetry 98 99 07/12/20 22:45
[2020-07-13 06:12] LABS: Basophils Absolute Auto 0.1 K/mm3 (0.0-0.1); Basophils Percent Auto 0.3 % (0.2-1.2); Eosinophils Percent Auto 0.1 % (0-4.4); Hematocrit 41.5 % (42.0-52.0); Hemoglobin 14.1 g/dL (14.0-18.0); Immature Granulocyte Absolute 0.18 K/mm3 (0.00-0.031); Lymphocytes Absolute Auto 0.73 K/mm3 (0.9-3.2); Lymphocytes Percent Auto 4.2 % (18.3-44.2); Mean Corpuscular Hemoglobin 30.2 pg (26-34); Mean Corpuscular Volume 88.9 fl (80-100); Mean Platelet Volume 10.3 fl (7.4-10.4); Monocytes Percent Auto 5.8 % (2.6-8.5); Neutrophils Absolute Auto 15.5 K/mm3 (1.3-6.7); Neutrophils Percent Auto 88.6 % (45.5-73.1); Platelet Count Result 208 k/mm3 (150-375); Red Blood Count 4.67 M/mm3 (4.6-6.20); Red Cell Distribution Width 12.7 % (11.5-14.5); White Blood Count 17.5 K/mm3 (4.5-10.0)
[2020-07-13 06:23] LABS: Ethanol < 10 mg/dL (<10)
[2020-07-13 06:24] LABS: Alanine Aminotransferase 29 U/L (4-50); Albumin Level 3.6 g/dL (3.5-5.1); Alkaline Phosphatase 65 U/L (38-126); Anion Gap 5 mmol/L (8-16); Aspartate Amino Transferase 22 U/L (17-59); Bilirubin,Total 0.9 mg/dL (0.2-1.3); Blood Urea Nitrogen 15 mg/dL (9-20); Carbon Dioxide 24 mmol/L (22-30); Chloride 104 mmol/L (98-107); Estimated CRCL calculation 138 ml/min; Estimated Glomerular Filt Rate > 60; Glucose 138 mg/dL (75-110); Sodium 133 mmol/L (137-145)
[2020-07-13] MEDS: SODIUM CHLORIDE 0.9% IV 1,000 ML 125 ML IV CONT ×2 (08:50→21:27)
[2020-07-13] MEDS: ENOXAPARIN 40 MG/0.4 ML SYRINGE SUB-Q (08:50)
--- NOTE | 2020-07-13 13:14 | WPDINFPN2 ---
Progress Note: A&P Assessment and Plan (1) Fever: Qualifiers: Fever type: unspecified Qualified Code(s): R50.9 - Fever, unspecified Code(s): R50.9 - Fever, unspecified Status: Acute Assessment and Plan: fever REC Vanc #2 and f/u Subjective Date/time seen: 07/13/20 13:14 Objective Data Vital Signs Vital Signs: Vital Signs - 24 hr 07/12/20 19:25 07/12/20 19:36 07/12/20 19:37 Temperature 37.7 C H Pulse Rate 135 H 134 H 130 H Respiratory Rate 24 H 26 H 26 H Blood Pressure 147/91 H 144/82 H Pulse Oximetry 100 100 100 07/12/20 20:30 07/12/20 21:12 07/12/20 21:14 Temperature 37.3 C Pulse Rate 121 H 124 H 124 H Respiratory Rate 25 H 22 H 20 Blood Pressure 132/75 Pulse Oximetry 97 99 07/12/20 21:15 07/12/20 21:35 07/12/20 21:45 Temperature Pulse Rate 120 H 121 H 125 H Respiratory Rate 24 H 17 26 H Blood Pressure Pulse Oximetry 100 99 99 07/12/20 22:00 07/12/20 22:01 07/12/20 22:41 Temperature 39.2 C H Pulse Rate 127 H 127 H Respiratory Rate 19 24 H Blood Pressure 157/82 H Pulse Oximetry 98 99 07/12/20 22:45 07/12/20 22:47 07/12/20 23:15 Temperature 39.2 C H 37.7 C H Pulse Rate 131 H 135 H Respiratory Rate 16 20 Blood Pressure 164/76 H 127/62 Pulse Oximetry 97 98 07/12/20 23:25 07/13/20 02:23 07/13/20 02:45 Temperature 37.5 C Pulse Rate 114 H 120 H Respiratory Rate 20 Blood Pressure Pulse Oximetry 98 07/13/20 04:00 07/13/20 08:00 Temperature 36.6 C 37.3 C Pulse Rate 110 H 125 H Respiratory Rate 18 18 Blood Pressure 118/77 121/79 Pulse Oximetry 100 99 Intake/Output Intake/Output: Intake & Output 07/10/20 07/11/20 07/12/20 07/13/20 23:59 23:59 23:59 23:59 Intake Total 1550 1050 Output Total 0 Balance 1550 1050 Meds/Results Medications: Active Medications Generic Name Dose Route Start Last Admin Trade Name Freq PRN Reason Stop Dose Admin Enoxaparin Sodium 40 mg 07/13/20 09:00 07/13/20 08:50 Enoxaparin 40 Mg/0.4 Ml Syringe SUB-Q 40 mg DAILY CHELO Administration Acetaminophen 1,000 mg in 100 mls @ 400 mls/hr 07/12/20 21:55 Ofirmev 1,000 Mg Ivpb IVPB 07/13/20 21:56 Q6H PRN Mild Pain (1-3) or Fever Sodium Chloride 1,000 mls @ 125 mls/hr 07/12/20 21:55 07/13/20 08:50 Normal Saline Iv IV CONT 125 mls/hr .Q8H CHELO Administration Vancomycin HCl 1,500 mg in 500 mls @ 333.333 mls/hr 07/13/20 09:00 07/13/20 08:49 Vancomycin 1,500 Mg/D5w 500 Ml IVPB 333.33 mls/hr Q12H CHELO Administration Ondansetron HCl 4 mg 07/12/20 21:55 Ondansetron Inj 4 Mg/2 Ml Vial IV PUSH Q4H PRN Nausea Radiology Results: ITS Impressions Chest X-Ray 07/12/20 19:59 IMPRESSION: No acute cardiopulmonary findings. Labs Labs: Laboratory Results - last 24 hr 07/12/20 07/12/20 07/12/20 20:07 20:07 20:07 WBC 13.0 H RBC 4.86 Hgb 14.7 Hct 42.7 MCV 87.9 MCH 30.2 MCHC 34.4 RDW 12.5 Plt Count 278 MPV 10.3 Immature Gran % (Auto) 0.4 Neut % (Auto) 85.3 H Lymph % (Auto) 6.4 L [place] % (Auto) 7.2 Eos % (Auto) 0.4 Baso % (Auto) 0.3 Lymph # (Auto) 0.84 L [place] # (Auto) 0.9 H Eos # (Auto) 0.1 Baso # (Auto) 0.0 Abs Immat Gran (auto) 0.05 H Absolute Neuts (auto) 11.1 H Absolute Nucleated RBC 0.0 Nucleated RBC % 0.0 PT 13.3 INR 1.0 APTT 36.0 Sodium 135 L Potassium 4.0 Chloride 102 Carbon Dioxide 26 Anion Gap 7 L BUN 15 D Creatinine 0.90 Estim Creat Clear Calc 110 Estimated GFR > 60 Glucose 107 Lactic Acid Calcium 8.9 Total Bilirubin 0.7 AST 24 ALT 40 Alkaline Phosphatase 74 C-Reactive Protein 2.9 H Total Protein 8.0 Albumin 4.2 Urine Color Urine Appearance Urine pH Ur Specific [place] Urine Protein Urine Glucose (UA) Urine Ketones Ur Blood (Man) Urine Nitrate
--- NOTE | 2020-07-13 14:29 | CONS_ITS ---
DATE OF CONSULTATION: 07/13/2020 REASON FOR CONSULTATION: Fever. HISTORY OF PRESENT ILLNESS: A 39-year-old male with ongoing active IV drug abuse. He was here in the hospital in April, had cellulitis. Reportedly blood cultures at that time were negative. He presented to the emergency room last evening with several hours of fever and chills without yanni rigors. He also had diffuse body aches. He had noted several lesions over his right forearm where he had injected the previous day. He has been admitted. He has been given piperacillin and vancomycin. He has been on no other recent antibiotics for any purpose, and denies any other symptoms. ALLERGIES: NONE KNOWN. MEDICATIONS: None upon admission. HABITS: IV drug use, former heroin, methamphetamine, alcohol to excess, and current tobacco. PAST MEDICAL HISTORY: No chronic medical illnesses other than nephrolithiasis in the past. Other illnesses as described. REVIEW OF SYSTEMS: 5-point review otherwise negative. FAMILY HISTORY: Not pertinent to his present illness. SOCIAL HISTORY: There is no family at the bedside and he lives locally. PHYSICAL EXAMINATION: GENERAL: Middle-aged male who appears actual age. No acute distress. VITAL SIGNS: His temperature shortly after arrival 39.2, now afebrile, 121/79, 125, 18, 99% room air. SKIN: Varicose veins, distal legs into the feet. There are multiple skin papules consistent with his injection use. He has no objective signs of cellulitis nor abscess. EENT: Conjunctivae are normal. Pupils equal, round, reactive. LUNGS: Clear to auscultation and percussion. CARDIAC: Tachycardic, regular. No murmurs. ABDOMEN: Nontender, soft. No organomegaly. No masses. EXTREMITIES: 1+ edema. LABORATORY DATA: Blood cultures, no growth after a very short incubation. White count 17.5, up from 13; hemoglobin 14.1; platelets are 208. Prothrombin time normal. He has mild hyponatremia. Glucose 138, otherwise normal chemistries. Urinalysis, no evidence of infection. Coronavirus assay in process. RADIOLOGY: Chest x-ray, no active disease. ASSESSMENT: 1. Acute febrile illness. Possibly directly related to his injection drug use. 2. Polysubstance abuse. 3. Medical nonadherence. RECOMMENDATIONS: 1. Continue vancomycin day #2. 2. Follow up on microbiology and adjust accordingly. Thank you very much for asking me to see him. ANTHONY ATR M.D. TECHNICAL CABLE JOINTER TECHNICAL CABLE JOINTER D Dean MT: [place]
[2020-07-13 16:35] LABS: Barbiturate Screen Urine Negative (Negative); Benzodiazepines Screen Urine Negative (Negative)
[2020-07-13 16:41] LABS: Cannabinoid Screen Urine Negative (Negative); Cocaine Screen Urine Negative (Negative); Methadone Screen Urine Negative (Negative); Opiate Screen Urine Negative (Negative); Phencyclidine Screen Urine Negative (Negative)
--- NOTE | 2020-07-13 17:50 | PM.IMPN ---
Progress Note: A&P Assessment and Plan (1) Cellulitis of left arm: Code(s): L03.114 - Cellulitis of left upper limb Status: Acute Assessment and Plan: On vancomycin Patient is known IVDU Sepsis/Endocarditis work up in progress Continue Vanc Appreciate ID note (2) Fever: Qualifiers: Fever type: unspecified Qualified Code(s): R50.9 - Fever, unspecified Code(s): R50.9 - Fever, unspecified Status: Acute Assessment and Plan: Continue to monitor Has defervesced (3) Intravenous drug user: Code(s): F19.90 - Other psychoactive substance use, unspecified, uncomplicated Status: Acute Assessment and Plan: Follow up in the outpatient setting. Subjective Date/time seen: 07/13/20 17:50 Patient denies any discomfort at this time. Review of Systems Review of Systems: Narrative: Patient is here due to fevers, and IVDU Constitutional: Comments: fevers, chills. ENT: Comments: no nasal congestion, no throat pain. Cardiovascular: Comments: no chest pain. Respiratory: Comments: no cough, no sputum production. Gastrointestinal: Comments: no n/v/abdominal pain. Musculoskeletal: Comments: no joint pain. Integumentary/Breasts: Comments: no rashes Neurologic: Comments: no sensory motor deficit Exam Narrative: Exam Narrative: Lying in bed. Const: General: no acute distress, poor hygiene and tired appearing Nutritional Appearance: average body habitus Orientation/consciousness: patient oriented x3 HENMT: Head: normal to inspection and normocephalic Ears: hearing grossly normal bilaterally General nose exam: Normal external nose present Face and sinus: normal facial exam Eyes: General: appearance normal, both eyes and all related structures Pupils: Equal, round and reactive pupils present EOM: EOMs intact bilaterally Neck: Neck: no lymphadenopathy, supple and no JVD Resp: Auscultation: clear to auscultation bilaterally Cardio: Jugular venous distension: no JVD Rate: regular rate Rhythm: regular rhythm GI: GI Palp: Yes Soft to palpation Skin: General skin exam: other (track byers) Neuro: General: patient oriented x3 and CN's II-XI intact bilaterally Cranial nerves: Yes CN's II-XII intact bilaterally and Yes Equal, round and reactive pupils present Cognition (Neuro): normal cognition Speech: normal speech Motor exam (neuro): 5/5 motor strength present throughout Sensory Exam: normal sensation Extrem: General: no pedal edema Objective Data Vital Signs Vital Signs: Vital Signs - 24 hr 07/12/20 19:25 07/12/20 19:36 07/12/20 19:37 Temperature 99.9 F H Pulse Rate 135 H 134 H 130 H Respiratory Rate 24 H 26 H 26 H Blood Pressure 147/91 H 144/82 H Pulse Oximetry 100 100 100 07/12/20 20:30 07/12/20 21:12 07/12/20 21:14 Temperature 99.1 F Pulse Rate 121 H 124 H 124 H Respiratory Rate 25 H 22 H 20 Blood Pressure 132/75 Pulse Oximetry 97 99 07/12/20 21:15 07/12/20 21:35 07/12/20 21:45 Temperature Pulse Rate 120 H 121 H 125 H Respiratory Rate 24 H 17 26 H Blood Pressure Pulse Oximetry 100 99 99 07/12/20 22:00 07/12/20 22:01 07/12/20 22:41 Temperature 102.5 F H Pulse Rate 127 H 127 H Respiratory Rate 19 24 H Blood Pressure 157/82 H Pulse Oximetry 98 99 07/12/20 22:45 07/12/20 22:47 07/12/20 23:15 Temperature 102.5 F H 99.8 F H Pulse Rate 131 H 135 H Respiratory Rate 16 20 Blood Pressure 164/76 H 127/62 Pulse Oximetry 97 98 07/12/20 23:25 07/13/20 02:23 07/13/20 02:45 Temperature 99.5 F Pulse Rate 114 H 120 H Respiratory Rate 20 Blood Pressure Pulse Oximetry 98 07/13/20 04:00 07/13/20 08:00 07/13/20 12:00 Temperature 97.9 F 99.2 F 99.1 F Pulse Rate 110 H 125 H 101 H Respiratory Rate 18 18 18 Blood Pressure 118/77 121/79 134/68 Pulse Oximetry 100 99 94 07/13/20 16:00 Temperature 97.7 F Pulse Rate 129 H Respiratory Rate 18 Blood Pressure 128/71 Pulse Oxime
[2020-07-13 18:24] LABS: Amphetamine Screen Urine Positive (Negative)
[2020-07-13 19:32] LABS: SARS-CoV-2 RNA PCR Negative
[2020-07-14] VITALS: BP 120/78; PULSE 108; PULSE 99; RESP 18; TEMP 36.9; O2SAT 99
[2020-07-14 04:00] VITALS: BP 123/77; PULSE 87; PULSE 93; RESP 18; TEMP 36.4; O2SAT 99
[2020-07-14] MEDS: SODIUM CHLORIDE 0.9% IV 1,000 ML 125 ML IV CONT (05:39)
[2020-07-14 08:00] VITALS: BP 127/83; PULSE 100; PULSE 99; RESP 20; TEMP 36.4; O2SAT 98
[2020-07-14] MEDS: ENOXAPARIN 40 MG/0.4 ML SYRINGE SUB-Q (08:38)
[2020-07-14 08:45] LABS: Basophils Percent Auto 0.6 % (0.2-1.2); Eosinophils Absolute Auto 0.1 K/mm3 (0-0.3); Eosinophils Percent Auto 2.1 % (0-4.4); Hematocrit 40.3 % (42.0-52.0); Hemoglobin 13.7 g/dL (14.0-18.0); Immature Granulocyte Absolute 0.02 K/mm3 (0.00-0.031); Immature Granulocyte Percent A 0.3 % (0-0.5); Lymphocytes Absolute Auto 1.57 K/mm3 (0.9-3.2); Lymphocytes Percent Auto 23.9 % (18.3-44.2); Mean Corpuscular Volume 88.2 fl (80-100); Mean Platelet Volume 10.3 fl (7.4-10.4); Monocytes Absolute Auto 0.9 K/mm3 (0.1-0.6); Monocytes Percent Auto 12.9 % (2.6-8.5); Neutrophils Percent Auto 60.2 % (45.5-73.1); Platelet Count Result 203 k/mm3 (150-375); Red Blood Count 4.57 M/mm3 (4.6-6.20); Red Cell Distribution Width 12.8 % (11.5-14.5); White Blood Count 6.6 K/mm3 (4.5-10.0)
[2020-07-14 09:05] LABS: Anion Gap 6 mmol/L (8-16); Blood Urea Nitrogen 10 mg/dL (9-20); Calcium 8.1 mg/dL (8.4-10.2); Carbon Dioxide 24 mmol/L (22-30); Chloride 108 mmol/L (98-107); Estimated CRCL calculation 138 ml/min; Estimated Glomerular Filt Rate > 60; Glucose 100 mg/dL (75-110); Potassium 3.9 mmol/L (3.4-5.0); Sodium 138 mmol/L (137-145)
[2020-07-14 09:47] LABS: CRP 12.8 mg/dL (<1.0)
[2020-07-14 09:58] LABS: Vancomycin Trough 6.5 ug/mL (10.0-20.0)
--- NOTE | 2020-07-14 11:52 | WPDINFPN2 ---
Progress Note: A&P Assessment and Plan (1) Fever: Qualifiers: Fever type: unspecified Qualified Code(s): R50.9 - Fever, unspecified Code(s): R50.9 - Fever, unspecified Status: Acute Assessment and Plan: IMP 1. Fever, likely septic phlebitis R forearm. BCs ngsf 2. IVDA REC Vanc #3, F/U BCs. No surgical intervention needed at present, but will need serial exams. Subjective Date/time seen: 07/14/20 11:52 Interval history: no pain RUE Exam Narrative: Exam Narrative: t max 37.8 Const: General: no acute distress Eyes: General: appearance normal, both eyes and all related structures Resp: Auscultation: clear to auscultation bilaterally Cardio: Rate: regular rate Rhythm: regular rhythm Skin: General skin exam: normal color Other: at needle tracks site R ulnar forearm, 2x5 approx. cm induration which is new. Non tender, not fluctuant at present, minimal erythema Objective Data Vital Signs Vital Signs: Vital Signs - 24 hr 07/13/20 12:00 07/13/20 16:00 07/13/20 20:00 Temperature 37.3 C 36.5 C 37.8 C H Pulse Rate 117 H 119 H 129 H Respiratory Rate 18 18 16 Blood Pressure 134/68 128/71 132/77 Pulse Oximetry 94 93 98 07/14/20 00:00 07/14/20 04:00 07/14/20 08:00 Temperature 36.9 C 36.4 C L 36.4 C Pulse Rate 99 87 99 Respiratory Rate 18 18 20 Blood Pressure 120/78 123/77 127/83 Pulse Oximetry 99 99 98 Intake/Output Intake/Output: Intake & Output 07/11/20 07/12/20 07/13/20 07/14/20 23:59 23:59 23:59 23:59 Intake Total 1550 4830 1480 Output Total 1600 1500 Balance 1550 3230 -20 Meds/Results Medications: Active Medications Generic Name Dose Route Start Last Admin Trade Name Freq PRN Reason Stop Dose Admin Enoxaparin Sodium 40 mg 07/13/20 09:00 07/14/20 08:38 Enoxaparin 40 Mg/0.4 Ml Syringe SUB-Q 40 mg DAILY CHELO Administration Sodium Chloride 1,000 mls @ 75 mls/hr 07/12/20 21:55 07/14/20 05:39 Normal Saline Iv IV CONT 125 mls/hr .[id number] CHELO Administration Vancomycin HCl 1,750 mg in 500 mls @ 250 mls/hr 07/14/20 21:00 Vancomycin 1,750 Mg/D5w 500 Ml IVPB Q12H CHELO Ondansetron HCl 4 mg 07/12/20 21:55 Ondansetron Inj 4 Mg/2 Ml Vial IV PUSH Q4H PRN Nausea Radiology Results: ITS Impressions Chest X-Ray 07/12/20 19:59 IMPRESSION: No acute cardiopulmonary findings. Labs Labs: Laboratory Results - last 24 hr 07/13/20 07/13/20 07/14/20 03:20 16:07 08:22 WBC RBC Hgb Hct MCV MCH MCHC RDW Plt Count MPV Immature Gran % (Auto) Neut % (Auto) Lymph % (Auto) [place] % (Auto) Eos % (Auto) Baso % (Auto) Lymph # (Auto) Fisher # (Auto) Eos # (Auto) Baso # (Auto) Abs Immat Gran (auto) Absolute Neuts (auto) Absolute Nucleated RBC Nucleated RBC % Sodium Potassium Chloride Carbon Dioxide Anion Gap BUN Creatinine Estim Creat Clear Calc Estimated GFR Glucose Calcium C-Reactive Protein Vancomycin Trough 6.5 L Urine Opiates Screen Negative Urine Methadone Screen Negative Ur Barbiturates Screen Negative Ur Phencyclidine Scrn Negative Ur Amphetamine Screen Positive A U Benzodiazepines Scrn Negative Urine Cocaine Screen Negative U Cannabinoids Screen Negative SARS-CoV-2 RNA (RT-PCR) Negative 07/14/20 07/14/20 08:22 08:22 WBC 6.6 RBC 4.57 L Hgb 13.7 L Hct 40.3 L MCV 88.2 MCH 30.0 MCHC 34.0 RDW 12.8 Plt Count 203 MPV 10.3 Immature Gran % (Auto) 0.3 Neut % (Auto) 60.2 Lymph % (Auto) 23.9 [place] % (Auto) 12.9 H Eos % (Auto) 2.1 Baso % (Auto) 0.6 Lymph # (Auto) 1.57 Fisher # (Auto) 0.9 H Eos # (Auto) 0.1 Baso # (Auto) 0.0 Abs Immat Gran (auto) 0.02 Absolute Neuts (auto) 4.0 Absolute Nucleated RBC 0.0 Nucleated RBC % 0.0 Sodium 138 Potassium 3.9 Chloride 108 H Carbon Dioxide 24 An
[2020-07-14 12:00] VITALS: PULSE 79
[2020-07-14 14:00] VITALS: BP 128/86; PULSE 95; RESP 20; TEMP 36.6; O2SAT 100
--- NOTE | 2020-07-14 14:10 | PM.IMPN ---
Progress Note: A&P Assessment and Plan (1) SIRS (systemic inflammatory response syndrome): Code(s): R65.10 - Systemic inflammatory response syndrome (SIRS) of non-infectious origin without acute organ dysfunction Status: Acute Assessment and Plan: SIRS criteria met on admission with fever (Tmax 102.5F 07/12), tachycardia, tachypnea, and leukocytosis. There was no definitive source of infection. He was treated with IV zosyn and IV vancomycin initially and IV zosyn was discontinued per infectious disease recommendations and IV vancomycin continued. Blood cultures were obtained and show NGTD. Leukocytosis has resolved today with no further fevers today. He had low grade temp of 100.1F last night Infectious disease is following with input greatly appreciated Order RUE CT and venous doppler given concern regarding soft tissue swelling under area of track byers at right forearm Continue IV vancomycin Await results of blood cultures Monitor hemodynamics and CBC daily (2) Subcutaneous nodule of right forearm: Code(s): R22.31 - Localized swelling, mass and lump, right upper limb Status: Acute Assessment and Plan: Right forearm subcutaneous nodule appreciated at right forearm with overlying track byers from recent IV drug injection. No surrounding cellulitis or warmth at present. Continue IV vancomycin Order RUE venous doppler US and RUE CT w/wo contrast for further evaluation Continue conservative care and close monitoring clinically (3) Fever: Qualifiers: Fever type: unspecified Qualified Code(s): R50.9 - Fever, unspecified Code(s): R50.9 - Fever, unspecified Status: Acute Assessment and Plan: T max was 102.5F on 07/12/20. He had low-grade temp of 100.1F the evening of 07/13/20 and no further fevers today. Etiology not entirely clear but he has an area of subcutaneous swelling at site of recent IV drug use at right forearm. Blood cultures obtained and demonstrate NGTD. Continue IV vancomycin Continue to monitor Additional plan as outlined below (4) Intravenous drug user: Code(s): F19.90 - Other psychoactive substance use, unspecified, uncomplicated Status: Acute Assessment and Plan: Follow up in the outpatient setting and continue to encourage cessation. He also met with care coordination and was offered available resources for quitting but declined. He is at high risk for recurrent infections and other potential adverse reactions of continued IV drug use. (5) COVID-19 ruled out by laboratory testing: Code(s): Z20.822 - Contact with and (suspected) exposure to COVID-19 Status: Acute Assessment and Plan: SARS-CoV-2 testing negative. Isolation precautions were discontinued. (6) Tobacco abuse: Code(s): Z72.0 - Tobacco use Status: Acute Assessment and Plan: Continue to encourage smoking cessation. He will be provided with a nicoderm patch while inpatient. Subjective Date/time seen: 07/14/20 14:10 Mr. Mike is a 39 y.o. male with PMH significant for IV drug use with crystal methamphetamine, tobacco dependence, and recurrent episodes of cellulitis who is seen in follow-up for acute febrile illness. He is doing okay today and reports no specific complaints aside from a bit of pain at the RUE where he last injected methamphetamine. He feels a bit warm but denies subjective fever and chills. He denies nausea and vomiting. His appetite is good. He denies chest pain and shortness of breath. He denies cough. His bowels are regular. He denies dizziness and lightheadedness. Review of Systems Review of Systems: All systems reviewed & are unremarkable except as noted in HPI and below Exam Narrative: Exam Narrative: General: Well-developed, unkempt, tired-appearing 39 y.o. male lying semi-recumbent in bed restin gin no acute distress. HEENMT: Normocephalic and atrau
[2020-07-14 16:00] VITALS: PULSE 86
--- NOTE | 2020-07-14 17:51 | PC.NURSE ---
pt refused to have ct scan or ultrasound states he is without his cigarettes and his drugs and he needs them refused to stay explained , nicotine patch was ordered he refused explained the risk of leaving [facility], risk of increased infection, sepsis and , he states he knows but is leaving anyway and if he needs to will go to another hospital. iv removed , tele removed. [facility] paper signed.
== END 2020-07-14 17:50 | disposition left against medical advice (07) | DRG 607 ==
LOC: ANHED 22:04 → ANH3MEDSUR 22:40
PROVIDERS: Admitting Provider Internal Medicine; Emergency Provider Emergency Medicine; PCP Physician Assistant; Visit Provider Physician Assistant
DX: R22.31 Localized swelling, mass and lump, right upper limb (principal); R65.10 Systemic inflammatory response syndrome (SIRS) of non-infectious origin without acute organ dysfunction; L03.114 Cellulitis of left upper limb; Z20.822 Contact with and (suspected) exposure to COVID-19; F19.90 Other psychoactive substance use, unspecified, uncomplicated; F17.210 Nicotine dependence, cigarettes, uncomplicated; Z91.19 Patient's noncompliance with other medical treatment and regimen
CPT/HCPCS: 36415; 51701; 71045; 80048; 80053; 80202; 80307; 81001; 83605; 85025; 85610; 85730; 86140; 87040; 87804; 93005; 96361; 96365; 96366; 96367; 96372; 96375; 99285; A9270; C9803; G0378; J1650; J2543; J3370; J7030; U0003; U0005

== ENCOUNTER 2020-07-15 05:55 | Observation (INO) | payer OTHER, SELFPAY ==
[2020-07-15] VITALS (9 sets, daily range): BP systolic 112–154; BP diastolic 70–96; PULSE 95–122; RESP 12–20; TEMP 36.6–36.7; O2SAT 98–100; BMI 26.4
--- NOTE | ~2020-07-15 | US_ITS ---
EXAMINATION: US venous doppler UE DATE: 07/15/2020 16:55 INDICATION: Right forearm erythema. TECHNIQUE: Grayscale ultrasound images without and with compression and Doppler ultrasound images of the bilateral upper extremity veins were obtained. COMPARISON: Ultrasound 03/02/2020 FINDINGS: The visualized portions of the right internal jugular vein, subclavian vein, axillary vein, brachial veins, cephalic vein, radial vein, and ulnar vein are patent. There is thrombus in right basilic vein . The visualized portions of the left internal jugular vein, subclavian vein, axillary vein, brachial v eins, cephalic vein, radial vein, and ulnar vein are patent. There is thrombus in left basilic vein. IMPRESSION: 1. No deep venous thrombosis. 2. Thrombosis of bilateral basilic veins, which are superficial veins. Reviewed, dictated and finalized at location A. ECT BINDER FEEDER OFFBEARER
--- NOTE | ~2020-07-15 | CT_ITS ---
EXAMINATION: CT forearm RT w con DATE: 07/15/2020 17:21 INDICATION: Right forearm tenderness. TECHNIQUE: Computed tomography (CT) of the right forearm was performed with 100 mL Omnipaque 350 intr avenous contrast. Automated exposure control and iterative reconstruction technique were employed. Th e dose-length product was 651.25 mGy-cm. COMPARISON: Ultrasound 07/15/2020 FINDINGS: Bone alignment is normal. No fracture. The muscles are normal. There is thrombosis of a sup erficial vein in the volar aspect of the forearm with local fat stranding, consistent with inflammati on. IMPRESSION: 1. Thrombosis of a superficial vein in the volar aspect of the forearm with subcutaneous inflammation . Reviewed, dictated and finalized at location A. COLLECTION SPECIALIST IMPRESSION: 1. Thrombosis of a superficial vein in the volar aspect of the forearm with sub cutaneous inflammation.
--- NOTE | 2020-07-15 07:02 | ED.GENADULT ---
HPI - General Adult General Chief complaint: Unspecified Stated complaint: multiple complaints Time Seen by Provider: 07/15/20 07:02 History of Present Illness HPI narrative: 39 yo male w/ h/o IV drug abuse presents to the ED Fever. He reports that he was admitted to the hospital with a fever, chills, nausea, fatigue, and body aches a few days ago. He left AMA last night because he was irritable due to coming off of drugs. After getting home last night he began to feel worse again. On chart review he was seen by ID and they suspected that he had septic thrombophlebitis from an injection site infection. They recommend IV vancomycin. Last dose was yesterday morning. Related Data Home Medications Medication Instructions Recorded Confirmed No Home Medications 07/12/20 07/15/20 Allergies Allergy/AdvReac Type Severity Reaction Status Date / Time No Known Allergies Allergy Mild Verified 07/15/20 06:07 Review of Systems Review of Systems: All systems reviewed & are unremarkable except as noted in HPI and below Constitutional: Constitutional: Reports body ache(s), Reports chills, Reports fatigue and Reports fever(s) Eyes: Eyes: Reports no additional eye complaints ENT: Reports system reviewed and no additional complaints, except as documented Cardiovascular: Cardiovascular: Denies chest pain and Denies dyspnea Respiratory: Respiratory: Denies cough and Denies dyspnea Gastrointestinal: Gastrointestinal: Denies abdominal pain and Reports nausea Genitourinary: Genitourinary: Denies hematuria and Denies dysuria Musculoskeletal: Musculoskeletal: Denies back pain Integumentary/Breasts: Comments: redness to right ankle Neurologic: Denies dizziness and Denies weakness PMFSH Past Medical History Medical History Alcoholism Allergic rhinitis Anxiety and depression Elevated fasting glucose History of kidney stones Lipodermatosclerosis of lower extremity due to varicose veins Lyme disease Obesity (BMI 30.0-34.9) Obstructive sleep apnea Seasonal allergies Tobacco abuse Venous stasis dermatitis Mild of both ankles Surgical History Surgical History History of arthroplasty of left ankle Family History Family History Mother No problems noted. Father Diabetes mellitus Grandparent , Paternal Grandfather Lung disease Grandparent , Maternal Grandmother Diabetes mellitus Grandparent , Maternal Grandfather Heart disease Sibling No problems noted. Sibling No problems noted. Social History Social History Social History: The patient continues to smoke. He is known to have abused heroin and methamphetamines. He both smokes and injects methamphetamines. He has a history of alcoholism with hospitalization in 2006 due to respiratory failure from alcohol intoxication. Smoking packs per day: 0.8 Smoking cigarettes per day: 16.0 Smoking status: Current every day smoker Tobacco type: cigarettes Second hand tobacco smoke exposure: No Alcohol intake: former Substance use: current Substance use type: heroin, amphetamines, IV drugs and methamphetamine Last use: 07/13/20 Gender identity (if verbalized by the patient): Male Spiritual care concerns: No Agree to blood products: Yes Exam Const: General: no acute distress and alert Nutritional Appearance: well nourished Orientation/consciousness: patient oriented x3 HENMT: Head: normal to inspection Neck: Neck: normal visual inspection and no lymphadenopathy Chest: Chest palpation & inspection: normal inspection of the chest and no tenderness Resp: Effort & Inspection: normal respiratory effort Auscultation: clear to auscultation bilaterally, no rales, no rhonch
[2020-07-15 07:59] LABS: Basophils Absolute Auto 0.1 K/mm3 (0.0-0.1); Basophils Percent Auto 0.8 % (0.2-1.2); Eosinophils Absolute Auto 0.2 K/mm3 (0-0.3); Eosinophils Percent Auto 3.5 % (0-4.4); Hematocrit 39.7 % (42.0-52.0); Hemoglobin 13.7 g/dL (14.0-18.0); Immature Granulocyte Absolute 0.08 K/mm3 (0.00-0.031); Immature Granulocyte Percent A 1.3 % (0-0.5); Lymphocytes Absolute Auto 1.28 K/mm3 (0.9-3.2); Lymphocytes Percent Auto 21.1 % (18.3-44.2); Mean Corpuscular HGB Conc 34.5 g/dl (32-36); Mean Corpuscular Hemoglobin 30.4 pg (26-34); Mean Platelet Volume 10.8 fl (7.4-10.4); Monocytes Absolute Auto 0.7 K/mm3 (0.1-0.6); Monocytes Percent Auto 12.2 % (2.6-8.5); Neutrophils Absolute Auto 3.7 K/mm3 (1.3-6.7); Neutrophils Percent Auto 61.1 % (45.5-73.1); Platelet Count Result 220 k/mm3 (150-375); Red Blood Count 4.51 M/mm3 (4.6-6.20); Red Cell Distribution Width 12.6 % (11.5-14.5); White Blood Count 6.1 K/mm3 (4.5-10.0)
[2020-07-15 08:15] LABS: Alanine Aminotransferase 39 U/L (4-50); Albumin Level 3.7 g/dL (3.5-5.1); Alkaline Phosphatase 77 U/L (38-126); Anion Gap 5 mmol/L (8-16); Aspartate Amino Transferase 33 U/L (17-59); Bilirubin,Total 0.5 mg/dL (0.2-1.3); Blood Urea Nitrogen 14 mg/dL (9-20); CRP 4.6 mg/dL (<1.0); Calcium 8.7 mg/dL (8.4-10.2); Carbon Dioxide 27 mmol/L (22-30); Chloride 106 mmol/L (98-107); Estimated CRCL calculation 135 ml/min; Estimated Glomerular Filt Rate > 60; Glucose 148 mg/dL (75-110); Potassium 3.8 mmol/L (3.4-5.0); Sodium 138 mmol/L (137-145)
--- NOTE | 2020-07-15 11:05 | ADMGEN ---
This patient, Clem Gonzalesdemianalma , was admitted to [facility] Room 325-01. Patient/family oriented to hospital policies and general routines including ID bracelet, bed and alarms, visiting hours, pain management, procedures, bathroom and other care routines, personal items, smoking policy, room service/diet, and visiting hours. Information on how to activate the Rapid Response Team has been discussed. Patient/Family are encouraged to report perceived risks to care and to ask questions if they do not understand what they are told or what they should do.
[2020-07-15] MEDS: NICOTINE (*PBKC) 14 MG PATCH 1 PATCH TRANSDERM (13:47)
--- NOTE | 2020-07-15 15:02 | PM.IMHP ---
H&P: HPI History of Present Illness Date/Time: 07/15/201444 Chief Complaint: Fatigue Narrative: 07/15/201444 The supervising physician for this history and physical is Dr. Harjeet Nicholas. Mr. Mike is a 39yo M with history of crystal methamphetamine use by injection and inhalation who presented to the ED for evaluation of weakness, fatigue, right forearm discomfort. He just left the hospital against medical advice yesterday 07/14/20 after being admitted 07/12 for febrile illness. He has had painful nodule over right forearm and it was suspected he may have septic thrombophlebitis at that site, however he declined further workup prior to leaving [place]. He has had multiple admissions in the past, Feb 2020 and Apr 2020, for treatment of cellulitis with IV antibiotics. He tells me he left the hospital yesterday because he was irritated and needed a cigarette. He reports last use of crystal meth was 07/11/20 by injection to both his left and right forearms. Denies using drugs after he left the hospital yesterday. Once he left the hospital, he began to feel worse with increasing fatigue, weakness and chills and decided to come back to the hospital. He was previously seen by Dr Espinoza for evaluation of febrile illness and had been on IV vancomycin for 3 days prior to leaving [place]. He is afebrile now and previous blood cultures from 07/12/20 are no growth to date. He was restarted on IV vancomycin this morning in the ED which we will continue for now. He is now agreeable to performing further workup with CT scan and venous dopplers to evaluate for abscess and DVT, respectively. He reports some mild worsening redness to right ankle where he has chronic stasis dermatitis, which he notes is not warm or painful. He denies any broken or painful teeth or other concerning rashes or wounds on his skin. He is admitted to the hospitalist service under observation status for evaluation and treatment of possible septic phlebitis. Review of Systems Review of Systems: Narrative: He reports worsening fatigue, weakness and chills. Pain to nodule on right forearm. He denies chest pain, shortness of breath, cough, or palpitations. Denies contact with any known COVID positive persons. Denies dizziness, lightheadedness or syncope. He reports feeling anxious. Twelve systems were reviewed with pertinent positives and negatives as per HPI. Except as documented, all other systems were reviewed and are negative. [facility] Past Medical History Medical History (Updated 07/15/20 @ 16:58 by Michelle Hager PA-C) Alcoholism History of; reports he stopped drinking years ago. Allergic rhinitis Anxiety and depression Elevated fasting glucose History of kidney stones Lipodermatosclerosis of lower extremity due to varicose veins Lyme disease Methamphetamine abuse By injection and inhalation Obesity (BMI 30.0-34.9) Obstructive sleep apnea Has not worn CPAP mask in years Seasonal allergies Tobacco abuse Venous stasis dermatitis Mild of both ankles Surgical History Surgical History History of arthroplasty of left ankle Family History Family History Mother No problems noted. Father Diabetes mellitus Grandparent , Paternal Grandfather Lung disease Grandparent , Maternal Grandmother Diabetes mellitus Grandparent , Maternal Grandfather Heart disease Sibling No problems noted. Sibling No problems noted. Social History Social History (Updated 07/15/20 @ 16:47 by Michelle Hager PA-C) Social History: Mr. Mike lives sometimes with his mother in [place] but is mostly in and out of hotels. He works at [employer]. He uses crystal methamphetamine by injection and smoking regularly. He reports he has not used heroin in about 8 years. He also used to use alcohol in excess however tells me he quit drinking years a
[2020-07-16 06:00] VITALS: BP 114/76; PULSE 76; RESP 20; TEMP 36; O2SAT 100
[2020-07-16 06:10] LABS: Basophils Absolute Auto 0.1 K/mm3 (0.0-0.1); Basophils Percent Auto 0.8 % (0.2-1.2); Eosinophils Absolute Auto 0.5 K/mm3 (0-0.3); Eosinophils Percent Auto 8.1 % (0-4.4); Hematocrit 41.4 % (42.0-52.0); Hemoglobin 13.8 g/dL (14.0-18.0); Immature Granulocyte Absolute 0.02 K/mm3 (0.00-0.031); Immature Granulocyte Percent A 0.3 % (0-0.5); Lymphocytes Percent Auto 26.1 % (18.3-44.2); Mean Corpuscular HGB Conc 33.3 g/dl (32-36); Mean Corpuscular Hemoglobin 29.8 pg (26-34); Mean Corpuscular Volume 89.4 fl (80-100); Mean Platelet Volume 10.5 fl (7.4-10.4); Monocytes Absolute Auto 0.6 K/mm3 (0.1-0.6); Neutrophils Absolute Auto 3.4 K/mm3 (1.3-6.7); Neutrophils Percent Auto 55.7 % (45.5-73.1); Platelet Count Result 265 k/mm3 (150-375); Red Blood Count 4.63 M/mm3 (4.6-6.20); Red Cell Distribution Width 12.7 % (11.5-14.5); White Blood Count 6.1 K/mm3 (4.5-10.0)
[2020-07-16 06:31] LABS: Alanine Aminotransferase 32 U/L (4-50); Albumin Level 3.5 g/dL (3.5-5.1); Alkaline Phosphatase 75 U/L (38-126); Anion Gap 4 mmol/L (8-16); Aspartate Amino Transferase 23 U/L (17-59); Bilirubin,Total 0.4 mg/dL (0.2-1.3); Blood Urea Nitrogen 10 mg/dL (9-20); Calcium 8.7 mg/dL (8.4-10.2); Carbon Dioxide 28 mmol/L (22-30); Chloride 109 mmol/L (98-107); Estimated CRCL calculation 107 ml/min; Estimated Glomerular Filt Rate > 60; Glucose 100 mg/dL (75-110); Potassium 4.5 mmol/L (3.4-5.0); Sodium 141 mmol/L (137-145)
[2020-07-16 06:57] LABS: HIV 1/2 Ab P24 Ag Result Negative (Negative)
[2020-07-16 07:12] LABS: Hepatitis B Surface Antigen Negative (Negative)
[2020-07-16 07:18] LABS: HAV RESULT Negative (Negative); Hepatitis B Core IgM Result Negative (Negative)
[2020-07-16 07:33] LABS: Hepatitis C Virus Antibody Reactive (Negative)
[2020-07-16 07:49] LABS: Hemoglobin A1C 5.4 % (<5.7)
[2020-07-16] MEDS: NICOTINE (*PBKC) 14 MG PATCH 1 PATCH TRANSDERM (09:00)
[2020-07-16] MEDS: ENOXAPARIN 40 MG/0.4 ML SYRINGE SUB-Q (09:02)
--- NOTE | 2020-07-16 10:44 | PC.NURSE ---
Pt visitor brought an arm full of belongings into to the room today. The visitor was very cooperative to allow me to search through the bag. The bag was full of random candy only. I found nothing to be a threat to my patient's safety at this time.
--- NOTE | 2020-07-16 12:48 | WPDINFPN2 ---
Progress Note: A&P Assessment and Plan (1) Septic thrombophlebitis: Code(s): I80.9 - Phlebitis and thrombophlebitis of unspecified site Status: Suspected Assessment and Plan: Fever due to septic phlebitis REC Vanc 1 day more, then (if no + blood cultures) oral TMP-SMX DS bid x 7 days. Call if other Qs Subjective Date/time seen: 07/16/20 12:48 Objective Data Vital Signs Vital Signs: Vital Signs - 24 hr 07/15/20 14:00 07/15/20 20:20 07/15/20 21:40 Temperature 36.7 C 36.7 C Pulse Rate 99 96 Respiratory Rate 18 18 20 Blood Pressure 122/77 128/72 Pulse Oximetry 100 100 07/16/20 06:00 Temperature 36.0 C L Pulse Rate 76 Respiratory Rate 20 Blood Pressure 114/76 Pulse Oximetry 100 Intake/Output Intake/Output: Intake & Output 07/13/20 07/14/20 07/15/20 07/16/20 23:59 23:59 23:59 23:59 Intake Total 2390 1000 Output Total 400 Balance 2390 600 Meds/Results Medications: Active Medications Generic Name Dose Route Start Last Admin Trade Name Freq PRN Reason Stop Dose Admin Enoxaparin Sodium 40 mg 07/16/20 09:00 07/16/20 09:02 Enoxaparin 40 Mg/0.4 Ml Syringe SUB-Q 40 mg DAILY CHELO Administration Vancomycin HCl 1,500 mg in 500 mls @ 333.333 mls/hr 07/15/20 21:00 07/16/20 11:22 Vancomycin 1,500 Mg/D5w 500 Ml IVPB Infused Q12H CHELO Infusion Nicotine 1 patch 07/15/20 12:00 07/16/20 09:00 Nicotine (*Pbkc) 14 Mg Patch TRANSDERM 1 patch QAM CHELO Administration Ondansetron HCl 4 mg 07/15/20 15:01 Ondansetron Inj 4 Mg/2 Ml Vial IV PUSH Q6H PRN Nausea And Vomiting Radiology Results: ITS Impressions Venous Doppler Study 07/15/20 17:01 IMPRESSION: 1. No deep venous thrombosis. 2. Thrombosis of bilateral basilic veins, which are superficial veins. Forearm CT 07/15/20 17:26 IMPRESSION: 1. Thrombosis of a superficial vein in the volar aspect of the forearm with subcutaneous inflammation. Labs Labs: Laboratory Results - last 24 hr 07/16/20 07/16/20 07/16/20 05:53 05:53 05:53 WBC 6.1 RBC 4.63 Hgb 13.8 L Hct 41.4 L MCV 89.4 MCH 29.8 MCHC 33.3 RDW 12.7 Plt Count 265 MPV 10.5 H Immature Gran % (Auto) 0.3 Neut % (Auto) 55.7 Lymph % (Auto) 26.1 [place] % (Auto) 9.0 H Eos % (Auto) 8.1 H Baso % (Auto) 0.8 Lymph # (Auto) 1.60 [place] # (Auto) 0.6 Eos # (Auto) 0.5 H Baso # (Auto) 0.1 Abs Immat Gran (auto) 0.02 Absolute Neuts (auto) 3.4 Absolute Nucleated RBC 0.0 Nucleated RBC % 0.0 Sodium Potassium Chloride Carbon Dioxide Anion Gap BUN Creatinine Estim Creat Clear Calc Estimated GFR Glucose Hemoglobin A1c 5.4 Calcium Magnesium Total Bilirubin AST ALT Alkaline Phosphatase Total Protein Albumin Hepatitis A IgM Ab Negative Hep Bs Antigen Negative Hep B Core IgM Ab Negative Hepatitis C Ab Screen Reactive HIV 1&2 Ab/P24 Ag 4thGn 07/16/20 07/16/20 05:54 05:54 WBC RBC Hgb Hct MCV MCH MCHC RDW Plt Count MPV Immature Gran % (Auto) Neut % (Auto) Lymph % (Auto) [place] % (Auto) Eos % (Auto) Baso % (Auto) Lymph # (Auto) [place] # (Auto) Eos # (Auto) Baso # (Auto) Abs Immat Gran (auto) Absolute Neuts (auto) Absolute Nucleated RBC Nucleated RBC % Sodium 141 Potassium 4.5 Chloride 109 H Carbon Dioxide 28 Anion Gap 4 L BUN 10 Creatinine 0.90 Estim Creat Clear Calc 107 Estimated GFR > 60 Glucose 100 Hemoglobin A1c Calcium 8.7 Magnesium 2.0 Total Bilirubin 0.4 AST 23 ALT 32 Alkaline Phosphatase 75 Total Protein 7.0 Albumin 3.5 Hepatitis A IgM Ab Hep Bs Antigen Hep B Core IgM Ab Hepatitis C Ab Screen HIV 1&2 Ab/P24 Ag 4thGn Negative
--- NOTE | 2020-07-16 13:07 | PM.IMPN ---
Progress Note: A&P Assessment and Plan (1) Septic thrombophlebitis: Code(s): I80.9 - Phlebitis and thrombophlebitis of unspecified site Status: Suspected Assessment and Plan: Patient was recently admitted 07/12/20 for febrile illness, left AMA 07/14/2020, returned to the ED due to worsening fatigue, weakness, chills. Afebrile at present. Blood cultures from 07/12/2020 show no growth to date. Repeat blood cultures are pending. Appreciate Dr. Espinoza's recommendations again while following microbiology. Continue vancomycin for 1 day more then transition to oral Bactrim if blood cultures are negative. CT and venous dopplers demonstrate DESI basilic (superficial) venous thrombosis. CT with surrounding subcutaneous inflammation. CT right forearm shows no abscess. (2) Methamphetamine abuse: Code(s): F15.10 - Other stimulant abuse, uncomplicated Status: Acute Assessment and Plan: Patient uses crystal methamphetamine regularly by injection and by smoking. He is educated at length at about substance cessation and tells me he is ready to quit. He explains he has used Suboxone in the past for years but has not taken it in quite some time. He mentions interest in getting back on Suboxone and was hopeful I could discharge him home with prescription. Unfortunately, I am not a certified Suboxone prescriber thus I will not be able to provide him with this at discharge. He verbalizes understanding and explains his plan to follow-up with his previous psychiatrist over in [facility] that has prescribed him Suboxone in the past. Additional Plan Hep C antibody is reactive. Awaiting PCR confirmatory testing. Subjective Date/time seen: 07/16/20 1200 Interval history: Mr. Mike is a 39yo M with history of current IV drug use admitted for septic thrombophlebitis. He reports his right forearm feels about the same today as yesterday. He otherwise offers no complaints and denies chest pain, shortness of breath, nausea or vomiting. Tolerating oral intake. Review of Systems Review of Systems: All systems reviewed & are unremarkable except as noted in HPI and below Exam Narrative: Exam Narrative: General: Well-developed male resting supine in bed in no acute distress. HEENT: Normocephalic, atraumatic, EOMI, PERRL, oropharynx clear. Poor dentition but no evidence of acute oral infection. Neck: Supple. Chest: Lungs clear to auscultation all rivera. Respirations are even and nonlabored. Tolerating room air. Heart: Heart rate and rhythm regular with S1-S2. No murmur, rub or gallop appreciated. Abdomen: Soft, nontender, nondistended, bowel sounds are present. Skin: Warm, dry. Papules from injection sites across four extremities. Subcutaneous nodules vs. induration to both right and left anterior medial forearms right > left. Induration on right forearm is tender to touch but not particularly fluctuant, erythematous or warm to touch. No evidence of cellulitis overlying these areas. Extremities: See above. Peripheral pulses palpable. Other than above there are some chronic dermatitis patches to DESI ankles R>L. Neurologic: Awake, alert and oriented. No focal neurologic deficits are noted. Speech is clear. Psychiatric: Avoidant eye contact otherwise he is pleasant and cooperative at present. Objective Data Vital Signs Vital Signs: Last Vital Signs Temp 98.3 F 07/16/20 14:00 Pulse 99 07/16/20 14:00 Resp 18 07/16/20 14:00 BP 107/56 L 07/16/20 14:00 Pulse Ox 98 07/16/20 14:00 Intake/Output Intake/Output: Intake & Output 07/13/20 07/14/20 07/15/20 07/16/20 23:59 23:59 23:59 23:59 Intake Total 2390 1000 Output Total 400 Balance 2390 600 Meds/Results Medications: Active Medications Generic Name Dose Route Start Last Admin Trade Name Freq PRN Hortensia
[2020-07-16 14:00] VITALS: BP 107/56; PULSE 99; RESP 18; TEMP 36.8; O2SAT 98
--- NOTE | 2020-07-16 18:01 | CONS_ITS ---
DATE OF CONSULTATION: 07/16/2020 REASON FOR CONSULTATION: Fever. HISTORY OF PRESENT ILLNESS: A 39-year-old male who was here in the hospital earlier in the week with fever believed to be due to injection drug use. He was started on vancomycin and on the day of discharge, he was noted to have a cord in the right forearm associated with his self-injection. He then signed himself out AMA and at home developed weakness and chills without yanni rigors, presented back to the hospital yesterday morning, was admitted and restarted on his vancomycin. Consultation requested. The patient has less pain in his forearm now. He has been afebrile since early admission. PRESENT MEDICATIONS: Noted. No immunosuppressants. HABITS: As per record and my previous note. ALLERGIES: NONE KNOWN. PAST MEDICAL HISTORY: As per my previous note. REVIEW OF SYSTEMS: Constitutional, skin, musculoskeletal otherwise negative. FAMILY HISTORY: See note. SOCIAL HISTORY: See note. PHYSICAL EXAMINATION: GENERAL: Middle-aged male, appears actual age. No distress. VITAL SIGNS: Afebrile. 114/76, 76, 20, 100%. EENT: No conjunctival injection. LUNGS: Clear to auscultation. CARDIAC: Regular rate and rhythm. No murmur, gallop, rub. ABDOMEN: Soft and nontender. EXTREMITIES: He has a cord over the volar aspect of his right forearm, which is less prominent compared to my prior exam of 2 days ago. He has no overlying erythema. There is no purulence and no fluctuance. No necrosis. LABORATORY DATA: All blood cultures have been no growth so far. White count consistently normal as is remainder of his CBC and his chemistry panel also normal. RADIOLOGY: Venous Doppler and CT both suggest phlebitis of superficial veins. ASSESSMENT: 1. Fever due to septic phlebitis, right forearm, other sources unlikely, improving in all aspects. 2. IV drug use. RECOMMENDATIONS: Vancomycin another 24 hours and then trimethoprim sulfa for an additional 7 days, as long as no positive blood cultures present. Thank you very much for asking me to see him. ANTHONY ART M.D. CHASSIS ENGINEER CHASSIS ENGINEER D I MT: [place]
[2020-07-16 20:00] VITALS: PULSE 88; RESP 20; O2SAT 100
[2020-07-16 21:09] LABS: Vancomycin Trough 7.7 ug/mL (10.0-20.0)
[2020-07-16 21:56] VITALS: BP 130/83; PULSE 88; RESP 20; TEMP 36.4; O2SAT 100
[2020-07-17 06:00] VITALS: BP 155/96; PULSE 86; RESP 20; TEMP 36.1; O2SAT 100
[2020-07-17] MEDS: ENOXAPARIN 40 MG/0.4 ML SYRINGE SUB-Q (09:03)
[2020-07-17] MEDS: NICOTINE (*PBKC) 14 MG PATCH 1 PATCH TRANSDERM (09:03)
--- NOTE | 2020-07-17 13:58 | PM.DS ---
DS: Admitting Diagnosis Admitting Diagnosis Admitting Diagnosis: Septic superficial thrombophlebitis R forearm DS: Discharge Diagnosis Discharge Diagnosis (1) Septic thrombophlebitis: Code(s): I80.9 - Phlebitis and thrombophlebitis of unspecified site Status: Acute Assessment and Plan: Date of Admission 07/15/20 Date of Discharge/DOS 07/17/20 Mr. Mike is a 39yo M with history of crystal methamphetamine use by injection and inhalation who presented to the ED for evaluation of weakness, fatigue, right forearm discomfort. He just left the hospital against medical advice day prior to arrival 07/14/20 after being admitted 07/12 for febrile illness. He has had painful nodule over right forearm and it was suspected he may have septic thrombophlebitis at that site, however he declined further workup prior to leaving AMA. This admission he was agreeable to further testing which, as detailed below, demonstrated superficial venous thrombosis to DESI forearms without evidence of abscess or DVT. Given his febrile illness on previous admission, it was suspected he had septic superficial thrombophlebitis and was treated for such with IV vancomycin and discharged with oral Bactrim per infectious disease recommendations. He is educated on the importance of illicit substance cessation although his insight and judgement remain poor. Prior to discharge we discussed his Hep C Ab was reactive, pending confirmatory testing with PCR. PCR came back positive after discharge. Difficulty contacting patient as his only contact number is his parent's home phone # where he sometimes stays, has no cell phone. He gave us permission to release test results to his mother, Jocelyn. I held a detailed discussion over the phone with Jocelyn regarding his Hepatitis C results and further instructions to follow up with PCP and GI. She was given contact information for Dr Martinez (GI) office to make an appointment. Patient was recently admitted 07/12/20 for febrile illness, left AMA 07/14/2020, returned to the ED due to worsening fatigue, weakness, chills. Afebrile at present. Blood cultures from 07/12/2020 show no growth to date. Repeat blood cultures are negative. Treated with IV vancomycin, discharged with oral Bactrim per ID recommendations. CT and venous dopplers demonstrate DESI basilic (superficial) venous thrombosis. CT with surrounding subcutaneous inflammation. CT right forearm shows no abscess. (2) Methamphetamine abuse: Code(s): F15.10 - Other stimulant abuse, uncomplicated Status: Acute Assessment and Plan: Patient uses crystal methamphetamine regularly by injection and by smoking. He is educated at length at about substance cessation and tells me he is ready to quit. He explains he has used Suboxone in the past for years but has not taken it in quite some time. He mentions interest in getting back on Suboxone and was hopeful I could discharge him home with prescription. Unfortunately, I am not a certified Suboxone prescriber thus I will not be able to provide him with this at discharge. He verbalizes understanding and explains his plan to follow-up with his PCP and his previous psychiatrist over in [facility] that has prescribed him Suboxone in the past. DS: Summary Hospital Course Hospital Course: See above. Time Spent with Patient Time attestation: Total time spent providing and/or coordinating discharge services: 35 minutes Exam Narrative: Exam Narrative: General: Well-developed male resting supine in bed in no acute distress. HEENT: Normocephalic, atraumatic, EOMI, PERRL, oropharynx clear. Poor dentition but no evidence of acute oral infection. Neck: Supple. Chest: Lungs clear to auscultation all rivera. Respirations are even and nonlabored. Tolerating room air. Heart: Heart rate and rhythm regul
[2020-07-17 14:00] VITALS: BP 134/99; PULSE 97; RESP 18; TEMP 36.6; O2SAT 100
[2020-07-18 18:37] LABS: Hepatitis C RNA, Quant PCR 69 IU/mL
--- NOTE | 2020-07-22 11:19 | PC.NURSE ---
Hep C tests elevated. CARLOS Motta aware and to f/u with pt.
== END 2020-07-17 14:40 | disposition home or self-care (01) ==
LOC: ANHED 07:02 → ANH3MEDSUR 10:52
PROVIDERS: Admitting Provider Internal Medicine; Emergency Provider Emergency Medicine; PCP Physician Assistant; Visit Provider Physician Assistant
DX: I82.611 Acute embolism and thrombosis of superficial veins of right upper extremity (principal); F15.10 Other stimulant abuse, uncomplicated; G47.33 Obstructive sleep apnea (adult) (pediatric); F17.210 Nicotine dependence, cigarettes, uncomplicated; R76.8 Other specified abnormal immunological findings in serum
CPT/HCPCS: 36415; 73201; 80053; 80074; 80202; 83036; 83735; 85025; 86140; 86703; 87040; 87522; 93970; 96365; 96366; 96372; 99285; A9270; G0378; G0432; J1650; J3370; Q9967

== ENCOUNTER 2021-01-13 22:21 | Emergency (ER) | payer OTHER, SELFPAY ==
[2021-01-13 22:32] VITALS: BP 136/79; PULSE 114; RESP 18; TEMP 36.8; O2SAT 99
[2021-01-14 00:10] VITALS: BP 132/94; PULSE 112; TEMP 36.8; O2SAT 100
[2021-01-14 01:05] VITALS: BP 130/83; PULSE 107; RESP 17; TEMP 37; O2SAT 97
[2021-01-14 01:06] VITALS: BP 130/83; PULSE 108; RESP 14; O2SAT 99
--- NOTE | 2021-01-14 01:14 | ED.LOWEXIN ---
HPI - Extremity Injury (Lower) General Chief Complaint: Extremity Injury, Lower Stated Complaint: ankle swelling Time Seen by Provider: 01/14/21 01:07 Source: patient Mode of arrival: ambulatory Limitations: no limitations History of Present Illness HPI Narrative: Patient is a 40-year-old male complaining of increasing bilateral extremity edema and pain x1 week. Patient states that he has been on his feet due to work for almost 1 month straight which could be causing his legs to swell up. Patient has history of chronic lower extremity edema and states that his doctor prescribed him compression stockings and a water pill for it, HCTZ. Patient denies any chest pain, shortness of breath, calf pain or swelling, fever or chills. Related Data Allergies Allergy/AdvReac Type Severity Reaction Status Date / Time No Known Allergies Allergy Mild Verified 12/10/20 10:39 Review of Systems Review of Systems: All systems reviewed & are unremarkable except as noted in HPI and below Constitutional: Constitutional: Denies body ache(s), Denies chills, Denies excessive sweating, Denies fatigue, Denies fever(s), Denies headache(s), Denies lethargy, Denies malaise, Denies weakness and Denies weight loss Eyes: Eyes: Denies blurry vision, Denies change in vision and Denies loss of vision ENT: Denies dizziness, Denies ear discharge, Denies headache(s), Denies lip swelling, Denies epistaxis, Denies nasal congestion, Denies neck pain, Denies throat swelling and Denies tongue swelling Cardiovascular: Cardiovascular: Denies chest pain, Denies chest pain at rest, Denies chest pain with activity, Denies diaphoresis, Denies rapid heart rate, Denies edema, Denies irregular heart rhythm, Denies lightheadedness, Denies palpitations, Denies dyspnea and Denies dyspnea on exertion Respiratory: Respiratory: Denies chest congestion, Denies cough, Denies hemoptysis, Denies dyspnea and Denies dyspnea on exertion Gastrointestinal: Gastrointestinal: Denies abdominal pain, Denies melena, Denies hematochezia, Denies diarrhea, Denies nausea, Denies vomiting and Denies hematemesis Musculoskeletal: Musculoskeletal: Denies abnormal gait, Denies deformity, Denies joint swelling, Denies limited range of motion, Denies neck pain and Denies numbness Neurologic: Denies Abnormal speech present, Denies abnormal gait, Denies confusion, Denies dizziness, Denies headache(s), Denies focal weakness, Denies loss of vision, Denies numbness, Denies Other visual disturbances, Denies Sensory deficit (Neuro) and Denies weakness Psychiatric: Psychiatric: Denies confusion, Denies depression, Denies auditory hallucinations, Denies homicidal ideation and Denies suicidal ideation Endocrine: Endocrine: Denies cold intolerance, Denies excessive sweating, Denies fatigue, Denies heat intolerance and Denies palpitations Hematologic/Lymphatic: Hematologic/Lymphatic: Denies easy bleeding and Denies easy bruising Allergic/Immunologic: Allergic/Immunologic: Denies lip swelling, Denies throat swelling and Denies tongue swelling PMFSH Past Medical History Medical History Alcoholism History of; reports he stopped drinking years ago. Allergic rhinitis Anxiety and depression Elevated fasting glucose History of kidney stones Lipodermatosclerosis of lower extremity due to varicose veins Lyme disease Methamphetamine abuse By injection and inhalation Obesity (BMI 30.0-34.9) Obstructive sleep apnea Has not worn CPAP mask in years Seasonal allergies Tobacco abuse Venous stasis dermatitis Mild of both ankles Surgical History Surgical History History of arthroplasty of left ankle Family History Family History Mother No problems noted. Father Diabetes mellitus Grandparent , Paternal Grandfather Lung disease Grandparent Decea
[2021-01-14 01:31] VITALS: BP 114/72; PULSE 101; RESP 22; O2SAT 98
[2021-01-14 02:05] LABS: Basophils Percent Auto 0.4 % (0.2-1.2); Eosinophils Percent Auto 0.2 % (0-4.4); Hematocrit 43.1 % (42.0-52.0); Hemoglobin 14.5 g/dL (14.0-18.0); Immature Granulocyte Absolute 0.05 K/mm3 (0.00-0.031); Immature Granulocyte Percent A 0.6 % (0-0.5); Lymphocytes Percent Auto 25.5 % (18.3-44.2); Mean Corpuscular HGB Conc 33.6 g/dl (32-36); Mean Corpuscular Hemoglobin 30.8 pg (26-34); Mean Corpuscular Volume 91.5 fl (80-100); Mean Platelet Volume 10.9 fl (7.4-10.4); Monocytes Absolute Auto 0.8 K/mm3 (0.1-0.6); Monocytes Percent Auto 9.5 % (2.6-8.5); Neutrophils Absolute Auto 5.3 K/mm3 (1.3-6.7); Neutrophils Percent Auto 63.8 % (45.5-73.1); Platelet Count Result 256 k/mm3 (150-375); Red Blood Count 4.71 M/mm3 (4.6-6.20); Red Cell Distribution Width 13.2 % (11.5-14.5); White Blood Count 8.3 K/mm3 (4.5-10.0)
[2021-01-14 02:17] LABS: NT Pro B Type Natriuretic Pept 28 pg/mL (5-100)
[2021-01-14 02:18] LABS: Alanine Aminotransferase 86 U/L (4-50); Albumin Level 4.3 g/dL (3.5-5.1); Alkaline Phosphatase 110 U/L (38-126); Anion Gap 6 mmol/L (8-16); Aspartate Amino Transferase 50 U/L (17-59); Bilirubin,Total 0.7 mg/dL (0.2-1.3); Blood Urea Nitrogen 17 mg/dL (9-20); Calcium 9.2 mg/dL (8.4-10.2); Carbon Dioxide 27 mmol/L (22-30); Chloride 104 mmol/L (98-107); Estimated CRCL calculation 142 ml/min; Estimated Glomerular Filt Rate > 60; Glucose 203 mg/dL (65-110); Potassium 4.2 mmol/L (3.4-5.0); Sodium 137 mmol/L (137-145)
[2021-01-14 02:31] VITALS: BP 138/98; PULSE 100; RESP 19; O2SAT 97
[2021-01-14 03:04] VITALS: BP 134/93; PULSE 104; RESP 16; O2SAT 99
== END 2021-01-14 03:06 | disposition home or self-care (01) ==
PROVIDERS: Emergency Provider Emergency Medicine
DX: R60.0 Localized edema (principal); E66.9 Obesity, unspecified; Z68.34 Body mass index [BMI] 34.0-34.9, adult; G47.33 Obstructive sleep apnea (adult) (pediatric); I83.12 Varicose veins of left lower extremity with inflammation; I83.11 Varicose veins of right lower extremity with inflammation; F17.210 Nicotine dependence, cigarettes, uncomplicated; Z87.442 Personal history of urinary calculi
CPT/HCPCS: 36415; 80053; 83880; 85025; 99283

== ENCOUNTER 2021-02-18 07:59 | Outpatient (CLI) | payer OTHER, SELFPAY ==
--- NOTE | ~2021-02-18 | US_ITS ---
EXAMINATION: US right upper quadrant EXAM DATE: 02/18/2021 08:45 INDICATION: B19.20 - Unspecified viral hepatitis C without hepatic coma. TECHNIQUE: Multiple grayscale and Doppler images of the abdomen right upper quadrant were obtained (b y a technologist who performed the scan) and subsequently reviewed. Comparison is made to prior exami nation from 03/05/2020. FINDINGS: The pancreatic head and body are normal in appearance. The pancreatic tail is not visualized. There is echogenic liver parenchyma with poor penetration, hepatic steatosis. There are no focal liver le sions identified. There is no evidence of intrahepatic biliary duct dilation. Portal vein difficult to visualize and obtain Doppler Doppler signal within, but there is flow. No right-sided hydronephro sis. Common bile duct measures 4 mm, which is normal. The gallbladder wall is normal in thickness, with ex pected amount of distention. No sonographic evidence of pericholecystic fluid. There is no cholelit hiases. Technologist performing exam reports patient did not demonstrate sonographic Blake's sign. Please note that this sign is less reliable in patients who have received pain medication. IMPRESSION: 1. Hepatic steatosis. Reviewed, dictated and finalized at location A. IMPRESSION: 1. Hepatic steatosis.
== END 2021-02-18 08:00 | disposition home or self-care (01) ==
LOC: ANHIMG 08:04
PROVIDERS: Visit Provider Internal Medicine Gastroenterology
DX: B19.20 Unspecified viral hepatitis C without hepatic coma (principal); K76.0 Fatty (change of) liver, not elsewhere classified
CPT/HCPCS: 76705

== ENCOUNTER 2021-04-30 12:27 | Emergency (ER) | payer OTHER, SELFPAY ==
--- NOTE | 2021-04-30 12:55 | ED.GENADULT ---
HPI - General Adult General Chief complaint: Unspecified Stated complaint: thirst,frequently urinating,dizziness Time Seen by Provider: 04/30/21 12:55 Source: patient, RN notes reviewed and old records reviewed Mode of arrival: ambulatory Limitations: no limitations History of Present Illness HPI narrative: 40-year-old male presents to the [facility] with complaints of increased thirst, urination. Also complains of intermittent dizziness. States he is worried that he is diabetic. States he also has not been taking his potassium with his Lasix, states it upsets his stomach. Denies chest pain or abdominal pain. Denies fevers. Related Data Home Medications Medication Instructions Recorded Confirmed hydrochlorothiazide 25 mg PO DAILY 04/30/21 04/30/21 Allergies Allergy/AdvReac Type Severity Reaction Status Date / Time No Known Allergies Allergy Mild Verified 04/30/21 13:18 Review of Systems Review of Systems: All systems reviewed & are unremarkable except as noted in HPI and below Constitutional: Constitutional: Reports as per HPI, Denies chills, Reports fatigue and Denies fever(s) Eyes: Eyes: Reports no additional eye complaints, Denies change in vision and Denies photophobia ENT: Reports as per HPI and Reports dizziness Cardiovascular: Cardiovascular: Denies chest pain Respiratory: Respiratory: Denies cough, Denies dyspnea and Denies wheezing Gastrointestinal: Gastrointestinal: Reports no additional gastrointestinal complaints, Denies abdominal pain, Denies diarrhea, Denies nausea and Denies vomiting Genitourinary: Genitourinary: Reports as per HPI and Reports urinary frequency Musculoskeletal: Musculoskeletal: Reports no additional musculoskeletal complaints Integumentary/Breasts: Skin/Breast: Reports system reviewed and no additional complaints, except as docu Neurologic: Reports as per HPI and Reports dizziness Psychiatric: Psychiatric: Reports no additional psychiatric complaints Endocrine: Endocrine: Reports as per HPI, Reports fatigue, Reports polydipsia and Reports polyuria Allergic/Immunologic: Allergic/Immunologic: Reports no additional allergic/immunologic complaints PMFSH Past Medical History Medical History Alcoholism History of; reports he stopped drinking years ago. 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 Father Diabetes mellitus Grandparent , Paternal Grandfather Lung disease Grandparent , Maternal Grandmother Diabetes mellitus Grandparent , Maternal Grandfather Heart disease Sibling No problems noted. Sibling No problems noted. Social History Social History Social History: Mr. Mike lives sometimes with his mother in [place] but is mostly in and out of hotels. He works at [employer]. He uses crystal methamphetamine by injection and smoking regularly. He reports he has not used heroin in about 8 years. He also used to use alcohol in excess however tells me he quit drinking years ago. He also continues to smoke 1 ppd cigarettes for over 20 years. His most recent PCP is Mesfin Vallejo PA-C. He assigns his mother, Jocelyn, as his surrogate decision maker and wishes to be full code status. Smoking packs per day: 1 Smoking cigarettes per day: 20.0 Tobacc
[2021-04-30 12:58] VITALS: BP 130/92; PULSE 123; RESP 20; TEMP 36.5; O2SAT 99
[2021-04-30 13:05] LABS: Glucose Point of Care 376 mg/dl (65-105)
== END 2021-04-30 13:04 | disposition short-term general hospital (02) ==
PROVIDERS: Emergency Provider Nurse Practitioner
DX: R42 Dizziness and giddiness (principal); R73.9 Hyperglycemia, unspecified; F17.210 Nicotine dependence, cigarettes, uncomplicated; K76.0 Fatty (change of) liver, not elsewhere classified; G47.33 Obstructive sleep apnea (adult) (pediatric); E66.9 Obesity, unspecified; Z68.35 Body mass index [BMI] 35.0-35.9, adult
CPT/HCPCS: 82948; 99212; G0463

== ENCOUNTER 2021-04-30 13:51 | Emergency (ER) | payer OTHER, SELFPAY ==
[2021-04-30] VITALS (11 sets, daily range): BP systolic 115–145; BP diastolic 84–105; PULSE 88–120; RESP 14–19; TEMP 36.2; O2SAT 94–100
[2021-04-30 14:01] LABS: Glucose Point of Care 348 mg/dl (65-105)
--- NOTE | 2021-04-30 14:55 | ECG_ITS ---
Measurements Intervals [place] Rate: 106 P: 36 VT: 152 QRS: 15 QRSD: 82 T: 50 QT: 345 QTc: 459 Interpretive Statements SINUS TACHYCARDIA BASELINE ARTIFACT- I, II, III, AVR, AVL, AVF, V1-V2 ABNORMAL ECG Electronically Signed On 04-30-2021 16:37:00 ENGAGEMENT MANAGER by Pilo Hamilton D.O.
[2021-04-30] MEDS: SODIUM CHLORIDE 0.9% IV 1,000 ML 999 ML IV CONT ×2 (15:13→15:52)
[2021-04-30 15:17] LABS: Basophils Percent Auto 0.4 % (0.2-1.2); Eosinophils Percent Auto 0.2 % (0-4.4); Hematocrit 46.1 % (42.0-52.0); Hemoglobin 16.1 g/dL (14.0-18.0); Immature Granulocyte Absolute 0.06 K/mm3 (0.00-0.031); Immature Granulocyte Percent A 0.6 % (0-0.5); Lymphocytes Absolute Auto 2.22 K/mm3 (0.9-3.2); Lymphocytes Percent Auto 22.2 % (18.3-44.2); Mean Corpuscular HGB Conc 34.9 g/dl (32-36); Mean Corpuscular Volume 88.7 fl (80-100); Monocytes Absolute Auto 0.7 K/mm3 (0.1-0.6); Monocytes Percent Auto 7.3 % (2.6-8.5); Neutrophils Absolute Auto 6.9 K/mm3 (1.3-6.7); Neutrophils Percent Auto 69.3 % (45.5-73.1); Platelet Count Result 250 k/mm3 (150-375); Red Cell Distribution Width 12.2 % (11.5-14.5)
--- NOTE | 2021-04-30 15:23 | ED.GENADULT ---
HPI - General Adult General Chief complaint: Recheck/Abnormal Lab/Rx Stated complaint: high blood sugar Time Seen by Provider: 04/30/21 14:55 Source: RN notes reviewed History of Present Illness HPI narrative: Patient presents emergency department from urgent care for high blood sugar. Patient gone to urgent care today with complaints of increased thirst and urination over the past week as well as some intermittent dizziness. Patient states he feels like he is always thirsty. States he has never been diagnosed as diabetic but his blood sugar was checked at facility and was noted to be above 300 no symptoms further evaluation he denies any fevers or chills chest pain shortness of breath abdominal pain nausea vomiting diarrhea or any other symptom Related Data Home Medications Medication Instructions Recorded Confirmed hydrochlorothiazide 25 mg PO DAILY 04/30/21 04/30/21 Allergies Allergy/AdvReac Type Severity Reaction Status Date / Time No Known Allergies Allergy Mild Verified 04/30/21 14:59 Review of Systems Review of Systems: Gen.: Denies fevers or chills Eyes: Denies eye pain or visual change ENT: Denies congestion Respiratory: Denies shortness of breath or cough CV: Denies chest pain or palpitations GI: Denies abdominal pain nausea, emesis or diarrhea reports increased thirst gisella notes increased urination Musculoskeletal: Denies back pain or muscle pain Neuro: Denies numbness, tingling, weakness or focal weakness Skin: Denies rash Except as documented, all other systems reviewed and negative [facility] Past Medical History Medical History Alcoholism History of; reports he stopped drinking years ago. 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 Father Diabetes mellitus Grandparent , Paternal Grandfather Lung disease Grandparent , Maternal Grandmother Diabetes mellitus Grandparent , Maternal Grandfather Heart disease Sibling No problems noted. Sibling No problems noted. Social History Social History Social History: Mr. Mike lives sometimes with his mother in [place] but is mostly in and out of hotels. He works at [employer]. He uses crystal methamphetamine by injection and smoking regularly. He reports he has not used heroin in about 8 years. He also used to use alcohol in excess however tells me he quit drinking years ago. He also continues to smoke 1 ppd cigarettes for over 20 years. His most recent PCP is Mesfin Vallejo PA-C. He assigns his mother, Jocelyn, as his surrogate decision maker and wishes to be full code status. Smoking packs per day: 1 Smoking cigarettes per day: 20.0 Tobacco type: cigarettes Second hand tobacco smoke exposure: No Alcohol intake: former Substance use: current Substance use type: methamphetamine Other substance usage details: snorts Methamphetamine Last use: 07/30/20 Gender identity (if verbalized by the patient): Male Sexual Orientation (if Verbalized by the Patient): Straight or Heterosexual Spiritual care concerns: No Agree to blood products: Yes Exam Narrative: APPEARANCE: No acute distress, nontoxic, resting in bed EYES: EOMI HEENT: Normocephalic, atraumatic, oral mucosa dry RESPIRATORY: No respirator
[2021-04-30 15:29] LABS: Alanine Aminotransferase 195 U/L (4-50); Albumin Level 4.2 g/dL (3.5-5.1); Alkaline Phosphatase 175 U/L (38-126); Anion Gap 11 mmol/L (8-16); Aspartate Amino Transferase 90 U/L (17-59); Bilirubin,Total 0.8 mg/dL (0.2-1.3); Blood Urea Nitrogen 14 mg/dL (9-20); Calcium 9.1 mg/dL (8.4-10.2); Carbon Dioxide 24 mmol/L (22-30); Chloride 101 mmol/L (98-107); Estimated CRCL calculation 157 ml/min; Estimated Glomerular Filt Rate > 60; Glucose 306 mg/dL (65-110); Potassium 3.8 mmol/L (3.4-5.0); Sodium 136 mmol/L (137-145)
--- NOTE | 2021-04-30 16:08 | PC.NURSE ---
pt. asked for urine sample states he will try.
[2021-04-30] MEDS: metFORMIN HCL 500 MG TABLET PO (16:52)
[2021-04-30 17:09] LABS: Add Urine Microscopic? YES; Appearance Urine Clear (Clear); Bilirubin Urine Negative (Negative); Blood Urine Negative (Negative); Color Urine Yellow (Yellow); Glucose Urine UA 3+ mg/dL (Negative); Ketones Urine Negative (Negative); Leukocyte Esterase Ur Negative LEU/UL (Negative); Mucus Urine Few /lpf; Nitrate Urine Negative (Negative); Protein Urine 1+ mg/dL (Negative); RBC Urine 0-2 /hpf (0-2); Squamous Epithelial Cell Urine Rare /hpf (Few); WBC Urine 0-3 /hpf
== END 2021-04-30 17:45 | disposition home or self-care (01) ==
PROVIDERS: Emergency Provider Emergency Medicine
DX: E11.65 Type 2 diabetes mellitus with hyperglycemia (principal); E66.9 Obesity, unspecified; Z68.33 Body mass index [BMI] 33.0-33.9, adult; G47.33 Obstructive sleep apnea (adult) (pediatric); F17.210 Nicotine dependence, cigarettes, uncomplicated; Z87.442 Personal history of urinary calculi
CPT/HCPCS: 36415; 80053; 81001; 82948; 85025; 93005; 96360; 99283; A9270; J7030

== ENCOUNTER 2021-05-29 11:21 | Emergency (ER) | payer BC, SELFPAY ==
[2021-05-29 11:40] VITALS: BP 124/86; PULSE 109; RESP 18; TEMP 36.8; O2SAT 100
--- NOTE | 2021-05-29 12:18 | ED.FEVER ---
HPI - Fever General Chief Complaint: Fever Stated Complaint: fever Time Seen by Provider: 05/29/21 12:17 Source: patient and RN notes reviewed Mode of arrival: ambulatory Limitations: no limitations History of Present Illness HPI Narrative: Clem is a 40-year-old male patient who ambulated into the [facility]. Patient states he had a fever of 102 last night. Patient states he has horrible body aches. Patient stated the symptoms started on night with a sore throat and cough. Patient states he is taken Advil for symptomatic relief only. Patient is a brittle diabetic and has been in the ER for hyperglycemia in the past. MD elicited complaint: fever Pertinent past history: diabetes Related Data Allergies Allergy/AdvReac Type Severity Reaction Status Date / Time No Known Allergies Allergy Mild Verified 05/29/21 12:28 Review of Systems Review of Systems: CONSTITUTIONAL: + body aches,+ fever, denies chills, or sweats. EYES: Denies visual changes, redness, or discharge. ENT: Denies rhinorrhea,+ congestion, +sore throat, or otalgia. CARDIOVASCULAR: Denies chest pain, palpitations, or edema. RESPIRATORY: + cough denies dyspnea. GASTROINTESTINAL: Denies abdominal pain, nausea, vomiting, or diarrhea. GENITOURINARY: Denies dysuria or hematuria. SKIN: Denies rash, itching, or wounds. MUSCULOSKELETAL: Denies back pain, joint pain, or myalgia. NEUROLOGIC: Denies headache, numbness, tingling, or weakness. PSYCH: Denies depression or anxiety. All systems reviewed & are unremarkable except as noted in HPI and below PMFSH Past Medical History Medical History Alcoholism History of; reports he stopped drinking years ago. 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 Father Diabetes mellitus Grandparent , Paternal Grandfather Lung disease Grandparent , Maternal Grandmother Diabetes mellitus Grandparent , Maternal Grandfather Heart disease Sibling No problems noted. Sibling No problems noted. Social History Social History Social History: Mr. Mike lives sometimes with his mother in [place] but is mostly in and out of hotels. He works at [employer]. He uses crystal methamphetamine by injection and smoking regularly. He reports he has not used heroin in about 8 years. He also used to use alcohol in excess however tells me he quit drinking years ago. He also continues to smoke 1 ppd cigarettes for over 20 years. His most recent PCP is Mesfin Vallejo PA-C. He assigns his mother, Jocelyn, as his surrogate decision maker and wishes to be full code status. Smoking packs per day: 1 Smoking cigarettes per day: 20.0 Tobacco type: cigarettes Second hand tobacco smoke exposure: No Alcohol intake: former Substance use: current Substance use type: methamphetamine Other substance usage details: snorts Methamphetamine Last use: 07/30/20 Gender identity (if verbalized by the patient): Male Sexual Orientation (if Verbalized by the Patient): Straight or Heterosexual Spiritual care concerns: No Agree to blood products: Yes Comments At time of signature, I have reviewed and agree with nursing past medical, surgical, social and family history unless otherwise noted. Please
== END 2021-05-29 12:33 | disposition home or self-care (01) ==
PROVIDERS: Emergency Provider Nurse Practitioner Family
DX: U07.1 COVID-19 (principal); K76.0 Fatty (change of) liver, not elsewhere classified; G47.33 Obstructive sleep apnea (adult) (pediatric); I87.8 Other specified disorders of veins; E66.9 Obesity, unspecified; Z68.33 Body mass index [BMI] 33.0-33.9, adult; F11.10 Opioid abuse, uncomplicated; I83.10 Varicose veins of unspecified lower extremity with inflammation
CPT/HCPCS: 87081; 87426; 87804; 87880; 99213; C9803; G0463

== ENCOUNTER 2021-10-05 01:16 | Emergency (ER) | payer BC, SELFPAY ==
[2021-10-05] VITALS (9 sets, daily range): BP systolic 96–114; BP diastolic 63–79; PULSE 79–108; RESP 13–18; TEMP 36.3; O2SAT 97–100
[2021-10-05 02:17] LABS: Glucose Point of Care 159 mg/dl (65-105)
--- NOTE | 2021-10-05 02:25 | ECG_ITS ---
Measurements Intervals [place] Rate: 92 P: 44 IN: 148 QRS: 29 QRSD: 87 T: 50 QT: 374 QTc: 464 Interpretive Statements SINUS RHYTHM BASELINE ARTIFACT- I, II, III, AVR, AVL, AVF NORMAL ECG Electronically Signed On 10-05-2021 6:41:30 CDT by Pilo Hamilton D.O.
[2021-10-05 02:53] LABS: Basophils Percent Auto 0.4 % (0.2-1.2); Eosinophils Percent Auto 0.3 % (0-4.4); Hematocrit 45.9 % (42.0-52.0); Hemoglobin 15.3 g/dL (14.0-18.0); Immature Granulocyte Absolute 0.04 K/mm3 (0.00-0.031); Immature Granulocyte Percent A 0.4 % (0-0.5); Lymphocytes Absolute Auto 2.66 K/mm3 (0.9-3.2); Lymphocytes Percent Auto 27.9 % (18.3-44.2); Mean Corpuscular HGB Conc 33.3 g/dl (32-36); Mean Corpuscular Hemoglobin 30.4 pg (26-34); Mean Corpuscular Volume 91.3 fl (80-100); Mean Platelet Volume 10.9 fl (7.4-10.4); Monocytes Absolute Auto 0.8 K/mm3 (0.1-0.6); Monocytes Percent Auto 7.9 % (2.6-8.5); Neutrophils Percent Auto 63.1 % (45.5-73.1); Platelet Count Result 264 k/mm3 (150-375); Red Blood Count 5.03 M/mm3 (4.6-6.20); Red Cell Distribution Width 12.9 % (11.5-14.5); White Blood Count 9.5 K/mm3 (4.5-10.0)
[2021-10-05 02:54] LABS: Appearance Urine Clear (Clear); Bilirubin Urine 1+ (Negative); Blood Urine Negative (Negative); Color Urine Yellow (Yellow); Glucose Urine UA Negative (Negative); Ketones Urine Negative (Negative); Leukocyte Esterase Ur Negative LEU/UL (Negative); Nitrate Urine Negative (Negative); Protein Urine Negative (Negative); Specific Grav Ur >= 1.030 (1.001-1.035); pH Urine 5.5 (5.0-9.0)
[2021-10-05 03:00] LABS: Add Urine Microscopic? YES; Mucus Urine Heavy /lpf; RBC Urine 0-2 /hpf (0-2); Squamous Epithelial Cell Urine Rare /hpf (Few); WBC Urine 0-3 /hpf
[2021-10-05 03:01] LABS: Ammonia < 9 umol/L (9-30)
[2021-10-05 03:06] LABS: Prothrombin Time 12.9 Seconds (11.1-14.7)
[2021-10-05 03:07] LABS: Partial Thromboplastin Time 41.4 SECONDS (22.3-36.8)
[2021-10-05 03:10] LABS: Alanine Aminotransferase 183 U/L (6-50); Albumin Level 4.1 g/dL (3.5-5.1); Alkaline Phosphatase 97 U/L (38-126); Anion Gap 5 mmol/L (8-16); Aspartate Amino Transferase 85 U/L (17-59); Bilirubin,Total 0.5 mg/dL (0.2-1.3); Blood Urea Nitrogen 17 mg/dL (9-20); Calcium 9.1 mg/dL (8.4-10.2); Carbon Dioxide 30 mmol/L (22-30); Chloride 105 mmol/L (98-107); Estimated CRCL calculation 128 ml/min; Estimated Glomerular Filt Rate > 60; Glucose 126 mg/dL (65-110); Potassium 3.7 mmol/L (3.4-5.0); Sodium 140 mmol/L (137-145)
[2021-10-05] MEDS: SODIUM CHLORIDE 0.9% IV 1,000 ML 999 ML IV CONT (03:37)
--- NOTE | 2021-10-05 04:52 | ED.WEAKNESS ---
HPI - Weakness General Chief complaint: Weakness Stated complaint: High Blood Sugar Time Seen by Provider: 10/05/21 03:14 Source: patient and RN notes reviewed Mode of arrival: ambulatory Limitations: no limitations History of Present Illness HPI Narrative: This is a 41 year old male with history DM and hepatitis C who presents for evaluation of tingling and lightheadedness. PAtient states tonight he was standing and he became lightheaded. He also reports tingling to both his hands and feet. He denies focal weakness, headache, chest pain, sob, nausea, vomiting, neck pain . Patient reports he felt like his blood sugar was high. Related Data Allergies Allergy/AdvReac Type Severity Reaction Status Date / Time No Known Allergies Allergy Mild Verified 09/16/21 13:17 Review of Systems Review of Systems: All systems reviewed & are unremarkable except as noted in HPI and below Constitutional: Constitutional: Denies chills, Reports fatigue and Denies fever(s) ENT: Denies sore throat Cardiovascular: Cardiovascular: Denies chest pain and Denies radiating jaw, neck or arm pain Respiratory: Respiratory: Denies cough, Denies dyspnea and Denies wheezing Gastrointestinal: Gastrointestinal: Denies abdominal pain, Denies diarrhea, Denies nausea and Denies vomiting Neurologic: Reports dizziness, Denies focal weakness, Reports numbness and Denies weakness PMFSH Past Medical History Medical History Alcoholism History of; reports he stopped drinking years ago. 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 Father Diabetes mellitus Grandparent , Paternal Grandfather Lung disease Grandparent , Maternal Grandmother Diabetes mellitus Grandparent , Maternal Grandfather Heart disease Sibling No problems noted. Sibling No problems noted. Social History Social History (Updated 09/16/21 @ 13:18 by Yanci Obando [facility]) Social History: Mr. Mike lives sometimes with his mother in [place] but is mostly in and out of hotels. He works at [employer]. He uses crystal methamphetamine by injection and smoking regularly. He reports he has not used heroin in about 8 years. He also used to use alcohol in excess however tells me he quit drinking years ago. He also continues to smoke 1 ppd cigarettes for over 20 years. His most recent PCP is Mesfin Vallejo PA-C. He assigns his mother, Jocelyn, as his surrogate decision maker and wishes to be full code status. Smoking packs per day: 1 Smoking cigarettes per day: 20.0 Tobacco type: cigarettes Second hand tobacco smoke exposure: No Alcohol intake: former Substance use: current Substance use type: methamphetamine Other substance usage details: snorts Methamphetamine Last use: 2021 Gender identity (if verbalized by the patient): Male Sexual Orientation (if Verbalized by the Patient): Straight or Heterosexual Spiritual care concerns: No Agree to blood products: Yes Exam Narrative: GENERAL: Well-appearing, well-nourished, and in no acute distress. HEAD: Normocephalic, atraumatic EYES: PERRLA and EOMI, conjunctiva clear without discharge EARS: TM's clear bilaterally without erythema or dullness NOSE: Nares clear, no rhinorrhea or epistaxis THROAT:Mucous memb
== END 2021-10-05 06:01 | disposition home or self-care (01) ==
LOC: ANHED 05:41
PROVIDERS: Emergency Provider General Practice; PCP Nurse Practitioner
DX: R20.2 Paresthesia of skin (principal); E11.65 Type 2 diabetes mellitus with hyperglycemia; B19.20 Unspecified viral hepatitis C without hepatic coma; F15.19 Other stimulant abuse with unspecified stimulant-induced disorder; F17.210 Nicotine dependence, cigarettes, uncomplicated
CPT/HCPCS: 36415; 80053; 81001; 82140; 82948; 83735; 85025; 85610; 85730; 93005; 96360; 99283; J7030

== ENCOUNTER 2022-01-23 19:12 | Emergency (ER) | payer BC, SELFPAY ==
[2022-01-23 19:24] VITALS: BP 128/71; PULSE 113; RESP 18; TEMP 36.8; O2SAT 99
--- NOTE | 2022-01-23 19:41 | ED.GENADULT ---
HPI - General Adult General Chief complaint: Skin/Abscess/Foreign Body Stated complaint: rash History of Present Illness HPI narrative: Patient is a 41-year-old male who presents to the [facility] care via POV for evaluation of a skin problem that has been present for 2 days. Additionally, he reports a cyst on back that is tender prompting today's visit. Reports taking 2 days of Bactrim DS. This is an old prescription. He states it is approximately 1 year old. History of sepsis secondary to cellulitis. Touching the area increases tenderness. Of note, he also reports a rash in gluteal folds. The rashes pruritic and burning in nature. Related Data Home Medications Medication Instructions Recorded Confirmed dextroamphetamine-amphetamine 30 15 mg BID 01/23/22 01/23/22 mg tablet Allergies Allergy/AdvReac Type Severity Reaction Status Date / Time No Known Allergies Allergy Mild Verified 09/16/21 13:17 Review of Systems Review of Systems: Denies recent/new changes in soaps, perfumes, lotions, detergents, and shampoos. Denies working with chemicals. Denies new or changes in medications/foods. Pertinent negatives fever, chills, sweats, change in appetite, malaise, poor p.o. intake, recent weight loss, change in appetite, myalgias, lymphadenopathy, LOC, dizziness, petechiae, blistering, erythema, streaking, warmth, lesions, easy bruising, lip/tongue/throat swelling, facial swelling, abdominal pain, nausea, vomiting, numbness, tingling, loss of sensation, cough, wheezing, chest pain, and heart palpitations/murmurs. [facility] Past Medical History Medical History Alcoholism History of; reports he stopped drinking years ago. 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 Father Diabetes mellitus Grandparent , Paternal Grandfather Lung disease Grandparent , Maternal Grandmother Diabetes mellitus Grandparent , Maternal Grandfather Heart disease Sibling No problems noted. Sibling No problems noted. Social History Social History (Updated 09/16/21 @ 13:18 by Yanci Obando [facility]) Social History: Mr. Mike lives sometimes with his mother in [place] but is mostly in and out of hotels. He works at [employer]. He uses crystal methamphetamine by injection and smoking regularly. He reports he has not used heroin in about 8 years. He also used to use alcohol in excess however tells me he quit drinking years ago. He also continues to smoke 1 ppd cigarettes for over 20 years. His most recent PCP is Mesfin Vallejo PA-C. He assigns his mother, Jocelyn, as his surrogate decision maker and wishes to be full code status. Smoking packs per day: 1 Smoking cigarettes per day: 20.0 Tobacco type: cigarettes Second hand tobacco smoke exposure: No Alcohol intake: former Substance use: current Substance use type: methamphetamine Other substance usage details: snorts Methamphetamine Last use: 2021 Gender identity (if verbalized by the patient): Male Sexual Orientation (if Verbalized by the Patient): Straight or Heterosexual Spiritual care concerns: No Agree to blood products: Yes Exam Narrative: GENERAL: Well-appearing, well-nourished, and in no acute distress. HEAD: Normocephalic, atraumatic.
== END 2022-01-23 20:00 | disposition home or self-care (01) ==
PROVIDERS: Emergency Provider Nurse Practitioner Family
DX: R21 Rash and other nonspecific skin eruption (principal); L03.312 Cellulitis of back [any part except buttock and flank]; F10.21 Alcohol dependence, in remission; F17.210 Nicotine dependence, cigarettes, uncomplicated; F15.90 Other stimulant use, unspecified, uncomplicated
CPT/HCPCS: 99213; G0463

== ENCOUNTER 2022-02-23 16:23 | Outpatient (CLI) | payer BC, SELFPAY ==
[2022-02-23 17:58] LABS: Alanine Aminotransferase 31 U/L (6-50); Albumin Level 4.6 g/dL (3.5-5.1); Alkaline Phosphatase 95 U/L (38-126); Anion Gap 13 mmol/L (8-16); Aspartate Amino Transferase 26 U/L (17-59); Bilirubin,Total 0.5 mg/dL (0.2-1.3); Blood Urea Nitrogen 16 mg/dL (9-20); Calcium 9.5 mg/dL (8.4-10.2); Carbon Dioxide 23 mmol/L (22-30); Chloride 107 mmol/L (98-107); Estimated Glomerular Filt Rate > 60; Glucose 125 mg/dL (65-110); Potassium 4.1 mmol/L (3.4-5.0); Sodium 143 mmol/L (137-145)
[2022-02-25 17:08] LABS: Hepatitis C RNA, Quant PCR <15 IU/mL; Hepatitis C Viral RNA PCR <15 IU/mL
== END 2022-02-23 16:24 | disposition home or self-care (01) ==
LOC: ANHLAB 16:24
PROVIDERS: Visit Provider Internal Medicine Gastroenterology
DX: K76.0 Fatty (change of) liver, not elsewhere classified (principal); F19.90 Other psychoactive substance use, unspecified, uncomplicated
CPT/HCPCS: 36415; 80053; 87522

== ENCOUNTER 2022-03-21 16:13 | Emergency (ER) | payer BC, SELFPAY ==
[2022-03-21 16:44] VITALS: BP 115/81; PULSE 116; RESP 20; TEMP 36.3; O2SAT 100
[2022-03-21 16:46] VITALS: BP 115/81; PULSE 116; RESP 20; TEMP 36.3; O2SAT 100
--- NOTE | 2022-03-21 17:27 | ED.URI ---
HPI - URI/Sore Throat General Chief Complaint: Upper Respiratory Infection Stated Complaint: Headache,Body Aches,Vomiting Time Seen by Provider: 03/21/22 17:00 Source: patient Mode of arrival: ambulatory Limitations: no limitations History of Present Illness HPI Narrative: Clem is a 41-year-old male patient presenting to clinic today with complaints of headache, body aches, vomiting, weakness, and sore throat x2 days. He denies any known fever. No known sick contacts MD elicited complaint: sore throat and nasal congestion Related Data Home Medications Medication Instructions Recorded Confirmed dextroamphetamine-amphetamine 30 15 mg PO BID 01/23/22 03/21/22 mg tablet Allergies Allergy/AdvReac Type Severity Reaction Status Date / Time No Known Allergies Allergy Mild Verified 03/21/22 16:45 Review of Systems Review of Systems: Pertinent positives per HPI. Patient denies any fever, chills, rash, visual changes, dizziness, cough, shortness of breath, chest pain, palpitations, nausea, diarrhea, constipation, abdominal pain, or any urinary issues. [facility] Past Medical History Medical History Alcoholism History of; reports he stopped drinking years ago. 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 Father Diabetes mellitus Grandparent , Paternal Grandfather Lung disease Grandparent , Maternal Grandmother Diabetes mellitus Grandparent , Maternal Grandfather Heart disease Sibling No problems noted. Sibling No problems noted. Social History Social History Social History: Mr. Mike lives sometimes with his mother in [place] but is mostly in and out of hotels. He works at [employer]. He uses crystal methamphetamine by injection and smoking regularly. He reports he has not used heroin in about 8 years. He also used to use alcohol in excess however tells me he quit drinking years ago. He also continues to smoke 1 ppd cigarettes for over 20 years. His most recent PCP is Mesfin Vallejo PA-C. He assigns his mother, Jocelyn, as his surrogate decision maker and wishes to be full code status. Smoking packs per day: 1 Smoking cigarettes per day: 20.0 Smoking status: Former smoker Tobacco type: cigarettes Second hand tobacco smoke exposure: No Alcohol intake: former Substance use: current Substance use type: methamphetamine Other substance usage details: snorts Methamphetamine Last use: 2021 Gender identity (if verbalized by the patient): Male Sexual Orientation (if Verbalized by the Patient): Straight or Heterosexual Spiritual care concerns: No Agree to blood products: Yes Comments At the time of my signature, I reviewed and agree with the nursing past medical, surgical, social, and family history. There is no relevant family history pertinent to the patient complaint. Exam Narrative: General: Well-developed, well nourished, in no apparent distress Head: Normocephalic, atraumatic Eyes: Pupils equally round and reactive to light bilaterally, EOM intact, sclera and conjunctive clear, no discharge, lids normal Ears: TMs intact and clear, ear canals clear, no drainage, grossly hearing normal. Nose: Nares patent, clear
== END 2022-03-21 17:33 | disposition home or self-care (01) ==
PROVIDERS: Emergency Provider Nurse Practitioner Family
DX: J02.0 Streptococcal pharyngitis (principal); Z20.822 Contact with and (suspected) exposure to COVID-19; Z87.891 Personal history of nicotine dependence; K76.0 Fatty (change of) liver, not elsewhere classified; E66.9 Obesity, unspecified; Z68.29 Body mass index [BMI] 29.0-29.9, adult; G47.33 Obstructive sleep apnea (adult) (pediatric); I87.2 Venous insufficiency (chronic) (peripheral)
CPT/HCPCS: 87426; 87804; 87880; 99213; C9803; G0463

== ENCOUNTER 2022-03-25 16:04 | Emergency (ER) | payer BC, SELFPAY ==
--- NOTE | ~2022-03-25 | XR_ITS ---
EXAMINATION: XR chest 2V 03/25/2022 16:44 INDICATION: Cough. PROCEDURE: Two-view chest COMPARISON: Comparison to multiple prior studies sequentially, with oldest reviewed study dated 07/13. FINDINGS: The lungs are clear. The cardiomediastinal silhouette is within normal limits. There are no pleural effusions. There is no pneumothorax suspected. IMPRESSION: 1: NO ACUTE CARDIOPULMONARY DISEASE. Reviewed, dictated and finalized at location A.
--- NOTE | 2022-03-25 16:05 | ED.URI ---
HPI - URI/Sore Throat General Chief Complaint: Upper Respiratory Infection Stated Complaint: Vomiting,Headache,Fatigue Time Seen by Provider: 03/25/22 16:05 Source: patient Mode of arrival: ambulatory Limitations: no limitations History of Present Illness HPI Narrative: Clem is a 41-year-old male patient presenting to clinic today with complaints of vomiting, headache, and fatigue. He was seen in the [facility] on Monday and diagnosed with strep pharyngitis. He is taking amoxicillin but states he is feeling worse. Started the amoxicillin on Monday night. He reports he has vomited 3 times today and had to leave work. He states he feels very weak. Related Data Home Medications Medication Instructions Recorded Confirmed dextroamphetamine-amphetamine 30 15 mg PO BID 01/23/22 03/25/22 mg tablet Allergies Allergy/AdvReac Type Severity Reaction Status Date / Time No Known Allergies Allergy Mild Verified 03/25/22 16:07 Review of Systems Review of Systems: Pertinent positives per HPI. Patient denies any fever, chills, rash, visual changes, dizziness, cough, shortness of breath, chest pain, palpitations,diarrhea, constipation, abdominal pain, or any urinary issues. [facility] Past Medical History Medical History Alcoholism History of; reports he stopped drinking years ago. 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 Father Diabetes mellitus Grandparent , Paternal Grandfather Lung disease Grandparent , Maternal Grandmother Diabetes mellitus Grandparent , Maternal Grandfather Heart disease Sibling No problems noted. Sibling No problems noted. Social History Social History Social History: Mr. Mike lives sometimes with his mother in [place] but is mostly in and out of hotels. He works at [employer]. He uses crystal methamphetamine by injection and smoking regularly. He reports he has not used heroin in about 8 years. He also used to use alcohol in excess however tells me he quit drinking years ago. He also continues to smoke 1 ppd cigarettes for over 20 years. His most recent PCP is Mesfin Vallejo PA-C. He assigns his mother, Jocelyn, as his surrogate decision maker and wishes to be full code status. Smoking packs per day: 1 Smoking cigarettes per day: 20.0 Smoking status: Former smoker Tobacco type: cigarettes Second hand tobacco smoke exposure: No Alcohol intake: former Substance use: current Substance use type: methamphetamine Other substance usage details: snorts Methamphetamine Last use: 2021 Gender identity (if verbalized by the patient): Male Sexual Orientation (if Verbalized by the Patient): Straight or Heterosexual Spiritual care concerns: No Agree to blood products: Yes Comments At the time of my signature, I reviewed and agree with the nursing past medical, surgical, social, and family history. There is no relevant family history pertinent to the patient complaint. Exam Narrative: General: Well-developed, well nourished, in no apparent distress Head: Normocephalic, atraumatic Eyes: Pupils equally round and reactive to light bilaterally, EOM intact, sclera and conjunctive clear, no discharge, lid
[2022-03-25 16:12] VITALS: BP 136/85; PULSE 124; RESP 18; TEMP 36.4; O2SAT 98
== END 2022-03-25 16:59 | disposition home or self-care (01) ==
PROVIDERS: Emergency Provider Nurse Practitioner Family
DX: J02.9 Acute pharyngitis, unspecified (principal); R53.1 Weakness; R11.2 Nausea with vomiting, unspecified; Z20.822 Contact with and (suspected) exposure to COVID-19; Z87.891 Personal history of nicotine dependence; K76.0 Fatty (change of) liver, not elsewhere classified; G47.33 Obstructive sleep apnea (adult) (pediatric); I83.12 Varicose veins of left lower extremity with inflammation; I83.11 Varicose veins of right lower extremity with inflammation; E66.9 Obesity, unspecified; Z68.30 Body mass index [BMI] 30.0-30.9, adult
CPT/HCPCS: 71046; 87426; 87804; 99213; C9803; G0463

== ENCOUNTER 2022-04-05 12:11 | Emergency (ER) | payer BC, SELFPAY ==
[2022-04-05] VITALS (23 sets, daily range): BP systolic 116–144; BP diastolic 82–101; PULSE 83–120; RESP 13–23; TEMP 36.5–37.3; O2SAT 99–100
--- NOTE | ~2022-04-05 | XR_ITS ---
EXAMINATION: XR chest 2V DATE: 04/05/2022 16:19 INDICATION: Sepsis TECHNIQUE: AP and lateral views of the chest are obtained. COMPARISON: 03/25/2022 FINDINGS: The lungs are free of acute opacities. No pleural effusion or pneumothorax. The cardiomedia stinal silhouette is normal. There is mild thoracic spondylosis. IMPRESSION: 1. No acute cardiopulmonary abnormality. Reviewed, dictated and finalized at location F. POURER
--- NOTE | 2022-04-05 12:32 | ECG_ITS ---
Measurements Intervals [place] Rate: 111 P: [place]: 0 QRS: 47 QRSD: 77 T: 62 QT: 332 QTc: 452 Interpretive Statements SINUS TACHYCARDIA BASELINE ARTIFACT- I, II, III, AVR, AVL, AVF, V1-V6 ABNORMAL ECG COMPARED TO ECG 10/05/2021 02:39:00 SINUS TACHYCARDIA NOW PRESENT Electronically Signed On 04-05-2022 13:31:00 FACIALIST by Pilo Hamilton D.O.
--- NOTE | 2022-04-05 15:55 | ED.GENADULT ---
HPI - General Adult General Chief complaint: Unspecified Stated complaint: being tx for bacterial infection - sent by PCP Time Seen by Provider: 04/05/22 15:03 History of Present Illness HPI narrative: Patient is a 41-year-old male presenting with rigors. Patient states that for the last several weeks he has been experiencing general malaise. States that he has been seeing his PCP who has had him on multiple antibiotics. States that he was seen by his PCP yesterday and blood work was obtained. Patient states he received a call that told him to come to the ER for possible IV antibiotics. Patient states that he has been hospitalized in the past due to bacteremia. States he has had some intermittent chest pain as well as shortness of breath. He otherwise denies headache, lightheadedness, palpitations, numbness or weakness, abdominal pain, vomiting, diarrhea, dysuria, leg swelling. Related Data Home Medications Medication Instructions Recorded Confirmed dextroamphetamine-amphetamine 30 15 mg PO BID 01/23/22 03/25/22 mg tablet Allergies Allergy/AdvReac Type Severity Reaction Status Date / Time No Known Allergies Allergy Mild Verified 04/05/22 12:12 Review of Systems Review of Systems: All systems reviewed & are unremarkable except as noted in HPI and below PMFSH Past Medical History Medical History Alcoholism History of; reports he stopped drinking years ago. 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 Father Diabetes mellitus Grandparent , Paternal Grandfather Lung disease Grandparent , Maternal Grandmother Diabetes mellitus Grandparent , Maternal Grandfather Heart disease Sibling No problems noted. Sibling No problems noted. Social History Social History Social History: Mr. Mike lives sometimes with his mother in [place] but is mostly in and out of hotels. He works at [employer]. He uses crystal methamphetamine by injection and smoking regularly. He reports he has not used heroin in about 8 years. He also used to use alcohol in excess however tells me he quit drinking years ago. He also continues to smoke 1 ppd cigarettes for over 20 years. His most recent PCP is Mesfin Vallejo PA-C. He assigns his mother, Jocelyn, as his surrogate decision maker and wishes to be full code status. Smoking packs per day: 1 Smoking cigarettes per day: 20.0 Smoking status: Former smoker Tobacco type: cigarettes Second hand tobacco smoke exposure: No Alcohol intake: former Substance use: current Substance use type: methamphetamine Other substance usage details: snorts Methamphetamine Last use: 2021 Gender identity (if verbalized by the patient): Male Sexual Orientation (if Verbalized by the Patient): Straight or Heterosexual Spiritual care concerns: No Agree to blood products: Yes Exam Narrative: GENERAL: Nontoxic, in no acute distress, intermittently shivering HEAD: Normocephalic, atraumatic. EYES: PERRLA and EOMI. ENT: Nares clear, no rhinorrhea or epistaxis. Mucous membranes moist. NECK: Supple. CHEST: Clear to auscultation. No respiratory distress. HEART: Tachycardic, regular rhythm. No murmur heard. Normal peripheral pulses. A
--- NOTE | 2022-04-05 16:17 | PC.NURSE ---
Patient in radiology
[2022-04-05] MEDS: SODIUM CHLORIDE 0.9% IV 1,000 ML 999 ML IV CONT (16:31)
[2022-04-05 16:34] LABS: Basophils Absolute Auto 0.1 K/mm3 (0.0-0.1); Basophils Percent Auto 0.5 % (0.2-1.2); Eosinophils Absolute Auto 0.1 K/mm3 (0-0.3); Eosinophils Percent Auto 0.5 % (0-4.4); Hematocrit 44.9 % (42.0-52.0); Hemoglobin 15.4 g/dL (14.0-18.0); Immature Granulocyte Absolute 0.03 K/mm3 (0.00-0.031); Immature Granulocyte Percent A 0.3 % (0-0.5); Lymphocytes Absolute Auto 2.99 K/mm3 (0.9-3.2); Mean Corpuscular HGB Conc 34.3 g/dl (32-36); Mean Corpuscular Hemoglobin 30.7 pg (26-34); Mean Corpuscular Volume 89.6 fl (80-100); Mean Platelet Volume 10.2 fl (7.4-10.4); Monocytes Absolute Auto 0.7 K/mm3 (0.1-0.6); Monocytes Percent Auto 6.9 % (2.6-8.5); Neutrophils Absolute Auto 6.5 K/mm3 (1.3-6.7); Neutrophils Percent Auto 62.8 % (45.5-73.1); Platelet Count Result 300 k/mm3 (150-375); Red Blood Count 5.01 M/mm3 (4.6-6.20); Red Cell Distribution Width 12.3 % (11.5-14.5); White Blood Count 10.3 K/mm3 (4.5-10.0)
[2022-04-05 16:43] LABS: Lactic Acid Reflex 1.1 mmol/L (0.7-2.0)
[2022-04-05 16:44] LABS: Alanine Aminotransferase 28 U/L (6-50); Albumin Level 4.4 g/dL (3.5-5.1); Alkaline Phosphatase 88 U/L (38-126); Anion Gap 10 mmol/L (8-16); Aspartate Amino Transferase 25 U/L (17-59); Bilirubin,Total 0.6 mg/dL (0.2-1.3); Blood Urea Nitrogen 14 mg/dL (9-20); Calcium 8.9 mg/dL (8.4-10.2); Carbon Dioxide 23 mmol/L (22-30); Chloride 104 mmol/L (98-107); Estimated CRCL calculation 121 ml/min; Estimated Glomerular Filt Rate > 60; Glucose 92 mg/dL (65-110); Potassium 4.4 mmol/L (3.4-5.0); Sodium 137 mmol/L (137-145)
[2022-04-05 16:56] LABS: Troponin I < 0.012 ng/mL (0.000-0.034)
[2022-04-05 17:31] LABS: Appearance Urine Clear (Clear); Bilirubin Urine Negative (Negative); Blood Urine Negative (Negative); Color Urine Yellow (Yellow); Glucose Urine UA Negative (Negative); Ketones Urine Negative (Negative); Leukocyte Esterase Ur Negative LEU/UL (Negative); Nitrate Urine Negative (Negative); Protein Urine Negative (Negative); Specific Grav Ur >= 1.030 (1.001-1.035); Urobilinogen Urine 0.2 mg/dL (<2.0); pH Urine 6.5 (5.0-9.0)
[2022-04-05 17:40] LABS: Mucus Urine Rare /lpf; RBC Urine 0-2 /hpf (0-2); WBC Urine 0-3 /hpf
[2022-04-05 17:43] LABS: Add Urine Microscopic? NO
[2022-04-05 18:26] LABS: Influenza A QL RT-PCR Negative (Negative); Influenza B QL RT-PCR Negative (Negative); SARS-CoV-2 RNA PCR Negative
[2022-04-05 19:39] LABS: Troponin I < 0.012 ng/mL (0.000-0.034)
== END 2022-04-05 22:04 | disposition home or self-care (01) ==
PROVIDERS: Emergency Provider Emergency Medicine
DX: R53.81 Other malaise (principal); R68.83 Chills (without fever); Z20.822 Contact with and (suspected) exposure to COVID-19; I83.12 Varicose veins of left lower extremity with inflammation; I83.11 Varicose veins of right lower extremity with inflammation; G47.33 Obstructive sleep apnea (adult) (pediatric); E66.9 Obesity, unspecified; Z68.32 Body mass index [BMI] 32.0-32.9, adult; F41.9 Anxiety disorder, unspecified; F32.A Depression, unspecified; F17.210 Nicotine dependence, cigarettes, uncomplicated
CPT/HCPCS: 36415; 71046; 80053; 81003; 83605; 84484; 85025; 87040; 87636; 93005; 96361; 96365; 96366; 96367; 99284; J0696; J3370; J7030

== ENCOUNTER 2023-01-23 11:16 | Emergency (ER) | payer BC, SELFPAY ==
[2023-01-23 12:16] VITALS: BP 123/80; PULSE 98; RESP 18; TEMP 36.4; O2SAT 99
--- NOTE | 2023-01-23 12:49 | ED.ALLEREA ---
HPI - Allergic Reaction General Chief complaint: Skin/Abscess/Foreign Body Stated complaint: allergic reaction Time Seen by Provider: 01/23/23 13:08 Source: patient and RN notes reviewed Mode of arrival: ambulatory Limitations: no limitations History of Present Illness HPI narrative: 42-year-old male presents with concern for several week history of his skin itching and feeling like things are crawling on it every time he goes outside. He reports his eye twitches when he goes outside. He denies rash, redness. Denies eye redness, watery drainage, eye swelling, eyelid swelling. Denies swollen lips, swollen tongue. He reports he has been taking Benadryl and Zyrtec without relief. He reports he has been working outside with weeds. However he denies any rash anywhere on his body. He reports he has been seeing a neurologist, however his history is unclear why he sees a neurologist or what the neurologist is treating him for. MD complaint: other (Skin itching) Related Data Home Medications Medication Instructions Recorded Confirmed clonazepam 1 mg tablet 15 mg PO DIRECTED 01/23/23 01/23/23 escitalopram oxalate 20 mg tablet mg 01/23/23 propranolol 60 mg capsule,24 mg PO 01/23/23 hr,extended release Allergies Allergy/AdvReac Type Severity Reaction Status Date / Time No Known Allergies Allergy Mild Verified 04/05/22 12:12 Review of Systems Review of Systems: CONSTITUTIONAL: Denies malaise, chills, sweats, or fever. EYES: Denies redness, or discharge. Reports eye twitching when he goes outside ENT: Denies rhinorrhea, congestion, swollen lips, swollen tongue CARDIOVASCULAR: Denies chest pain, palpitations, or edema. RESPIRATORY: Denies cough or dyspnea. GASTROINTESTINAL: Denies abdominal pain, nausea, vomiting SKIN: Reports itchy skin when he goes outside MUSCULOSKELETAL: Denies joint pain or myalgia. NEUROLOGIC: Denies headache. All systems reviewed & are unremarkable except as noted in HPI and below PMFSH Past Medical History Medical History Alcoholism History of; reports he stopped drinking years ago. 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 Father Diabetes mellitus Grandparent , Paternal Grandfather Lung disease Grandparent , Maternal Grandmother Diabetes mellitus Grandparent , Maternal Grandfather Heart disease Sibling No problems noted. Sibling No problems noted. Social History Social History Social History: Mr. Mike lives sometimes with his mother in [place] but is mostly in and out of hotels. He works at [employer]. He uses crystal methamphetamine by injection and smoking regularly. He reports he has not used heroin in about 8 years. He also used to use alcohol in excess however tells me he quit drinking years ago. He also continues to smoke 1 ppd cigarettes for over 20 years. His most recent PCP is Mesfin Vallejo PA-C. He assigns his mother, Jocelyn, as his surrogate decision maker and wishes to be full code status. Smoking packs per day: 1 Smoking cigarettes per day: 20.0 Smoking status: Former smoker Tobacco type: cigarettes Second hand tobacco smoke exposure: No Alcohol intake: former Substance use: current Substance use t
== END 2023-01-23 13:28 | disposition home or self-care (01) ==
PROVIDERS: Emergency Provider Nurse Practitioner
DX: L29.9 Pruritus, unspecified (principal); Z87.891 Personal history of nicotine dependence; K76.0 Fatty (change of) liver, not elsewhere classified; E66.9 Obesity, unspecified; Z68.31 Body mass index [BMI] 31.0-31.9, adult; I87.2 Venous insufficiency (chronic) (peripheral)
CPT/HCPCS: 99213; G0463

== ENCOUNTER 2023-05-12 19:10 | Emergency (ER) | payer BC, SELFPAY ==
--- NOTE | ~2023-05-12 | XR_ITS ---
XR chest 1V portable DATE: 05/12/2023 21:12 INDICATION: Cough TECHNIQUE: Portable upright AP chest on 05/12/2023 at 2110 hours COMPARISON: 04/05/2022 AP and lateral chest FINDINGS: Normal heart size. No hilar or mediastinal enlargement. No pulmonary infiltrate or consolid ation, pleural effusion or pulmonary vascular congestion or pneumothorax is detected. Included skeletal structures are unremarkable. IMPRESSION: No active cardiopulmonary disease Reviewed, dictated and finalized at location A. COBBLER
[2023-05-12 19:12] VITALS: BP 117/82; PULSE 127; RESP 22; TEMP 36.8; O2SAT 100
[2023-05-12 19:58] LABS: Influenza A QL RT-PCR Negative (Negative); Influenza B QL RT-PCR Negative (Negative); RSV RNA, RT-PCR Negative (Negative); SARS-CoV-2 RNA PCR Negative (Negative)
--- NOTE | 2023-05-12 20:57 | ED.URI ---
HPI - URI/Sore Throat General Chief Complaint: Upper Respiratory Infection Stated Complaint: sob Time Seen by Provider: 05/12/23 20:57 Source: patient Mode of arrival: ambulatory Limitations: no limitations History of Present Illness HPI Narrative: 42 years old white male came to the Emergency by private car complaining of coughing, fever, general body aches, nasal congestion, sore throat started 3 days ago, started on Levaquin by his family physician yesterday got worse today. He denies sick contacts. 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 patient smokes cigarette, does not drink or use drugs. Related Data Home Medications Medication Instructions Recorded Confirmed clonazepam 1 mg tablet 15 mg PO DIRECTED 01/23/23 01/23/23 escitalopram oxalate 20 mg tablet mg 01/23/23 propranolol 60 mg capsule,24 mg PO 01/23/23 hr,extended release Allergies Allergy/AdvReac Type Severity Reaction Status Date / Time No Known Allergies Allergy Mild Verified 05/12/23 20:48 Review of Systems Review of Systems: All systems reviewed & are unremarkable except as noted in HPI and below PMFSH Past Medical History Medical History Alcoholism History of; reports he stopped drinking years ago. 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 Father Diabetes mellitus Grandparent , Paternal Grandfather Lung disease Grandparent , Maternal Grandmother Diabetes mellitus Grandparent , Maternal Grandfather Heart disease Sibling No problems noted. Sibling No problems noted. Social History Social History Social History: Mr. Mike lives sometimes with his mother in [place] but is mostly in and out of hotels. He works at [employer]. He uses crystal methamphetamine by injection and smoking regularly. He reports he has not used heroin in about 8 years. He also used to use alcohol in excess however tells me he quit drinking years ago. He also continues to smoke 1 ppd cigarettes for over 20 years. His most recent PCP is Mesfin Vallejo PA-C. He assigns his mother, Jocelyn, as his surrogate decision maker and wishes to be full code status. Smoking packs per day: 1 Smoking cigarettes per day: 20.0 Smoking status: Former smoker Tobacco type: cigarettes Second hand tobacco smoke exposure: No Alcohol intake: former Substance use: current Substance use type: methamphetamine Other substance usage details: snorts Methamphetamine Last use: 2021 Living arrangements: with family Occupation/Education: occupation Gender identity (if verbalized by the patient): Male Sexual Orientation (if Verbalized by the Patient): Straight or Heterosexual Spiritual care concerns: No Agree to blood products: Yes Exam Narrative: General appearance: Well-developed, well-nourished Skin: Normal color Head: Normocephalic, nontraumatic Eyes: Clear conjunctiva ENT: Oropharynx normal, ears normal, nose normal Neck: Supple, nontender Chest and respiratory: Airway patent, no respiratory distress, no accessory muscle use , scattered rhonchi and coarse wheezing bilaterally Heart: Regular rate/rhythm Abdomen: Soft, nontender, no organomegaly, quiet bowel sounds Vascular: Normal peripheral pulses, normal capillary
[2023-05-12] MEDS: predniSONE 20 MG TABLET 60 MG PO (21:09)
[2023-05-12 21:20] VITALS: PULSE 108; RESP 20
[2023-05-12] MEDS: IPRATROPIUM BR 0.02% INH SOLN 0.5 MG/2.5 ML VIAL INHALATION ×2 (21:20→21:40)
[2023-05-12] MEDS: ALBUTEROL SULFATE NEB 2.5 MG/3 ML INH INHALATION ×2 (21:20→21:40)
--- NOTE | 2023-05-12 21:20 | ECG_ITS ---
Measurements Intervals [place] Rate: 105 P: 7 CO: 124 QRS: 19 QRSD: 82 T: 67 QT: 329 QTc: 436 Interpretive Statements SINUS TACHYCARDIA ABNORMAL RHYTHM ECG COMPARED TO ECG 04/05/2022 12:36:57 NO SIGNIFICANT CHANGES Electronically Signed On 05-13-2023 9:03:08 DATA ENTRY ASSISTANT by Lora Chen M.D.
[2023-05-12 22:17] VITALS: PULSE 98; O2SAT 100
[2023-05-12 22:55] VITALS: BP 152/89; PULSE 100; RESP 19; O2SAT 99
== END 2023-05-12 22:56 | disposition home or self-care (01) ==
LOC: ANHED 21:41
PROVIDERS: Emergency Medicine; Emergency Provider Emergency Medicine
DX: J06.9 Acute upper respiratory infection, unspecified (principal); J98.01 Acute bronchospasm; Z20.822 Contact with and (suspected) exposure to COVID-19; G47.33 Obstructive sleep apnea (adult) (pediatric); E66.9 Obesity, unspecified; Z68.30 Body mass index [BMI] 30.0-30.9, adult; F41.9 Anxiety disorder, unspecified; F32.A Depression, unspecified; Z87.442 Personal history of urinary calculi; I87.2 Venous insufficiency (chronic) (peripheral); Z96.662 Presence of left artificial ankle joint; F17.210 Nicotine dependence, cigarettes, uncomplicated; R00.0 Tachycardia, unspecified
CPT/HCPCS: 71045; 87637; 93005; 94640; 99283; J7512

== ENCOUNTER 2024-05-30 12:17 | Outpatient (CLI) | payer BC, SELFPAY ==
--- NOTE | ~2024-05-30 | XR_ITS ---
EXAMINATION: XR chest 2V 05/30/2024 12:39 INDICATION: Dyspnea PROCEDURE: 2 view chest COMPARISON: Comparison to multiple prior studies sequentially, with oldest reviewed study dated 07/12. FINDINGS: The lungs are clear. The cardiomediastinal silhouette is within normal limits. There are no pleural effusions. There is no pneumothorax suspected. IMPRESSION: 1: NO ACUTE CARDIOPULMONARY DISEASE. Reviewed, dictated and finalized at location B. [employer]PORATE RESPONSIBILITY
== END 2024-05-30 12:18 | disposition home or self-care (01) ==
DX: R06.00 Dyspnea, unspecified (principal)
CPT/HCPCS: 71046